=== PATIENT | male | born 1950 | race Caucasian/White ===

== ENCOUNTER 2018-04-07 13:30 | Outpatient (CLI) | payer MEDICARE, OTHER ==
[~2018-04-07] VITALS: Ht 185.4 cm; Wt 115.7 kg
[~2018-04-07 13:30] MED LIST: ACHD5005 PO; ASPI-808 PO; CITA40TA11 PO; FOSI40TA5 PO; HYDR25TA4 PO; MELO15TA39 PO; METH4TAB PO
[2018-04-07] MEDS ORDERED: VENL100T2 PO (13:33)
[2018-04-07] MEDS ORDERED: CHOL10003 PO (13:33)
[2018-04-07] MEDS ORDERED: ASPI-999 PO (13:33)
[2018-04-07] MEDS ORDERED: AMLO10TA7 PO (13:33)
== END 2018-04-07 13:34 ==
LOC: PREOP 13:30
PROVIDERS: ATTEND Surgery
DX: Z01.818 Encounter for other preprocedural examination (principal)

== ENCOUNTER 2018-04-09 11:13 | Day surgery (SDC) | payer MEDICARE, OTHER ==
[~2018-04-09] VITALS: Ht 185.4 cm; Wt 115.7 kg
[~2018-04-09 11:13] MED LIST changes: +AMLO10TA7 PO; +ASPI-999 PO; +CHOL10003 PO; +VENL100T2 PO
[2018-04-09] MEDS ORDERED: NS IV 500 ML 500 ML ONE (11:26)
[2018-04-09] MEDS ORDERED: MIDAZOLAM 2 MG/2 ML (VERSED) VIAL ONE ×4 (11:46)
[2018-04-09] MEDS ORDERED: fentaNYL INJECTION 100 MCG/2 ML AMP ONE (11:46)
[2018-04-09] MEDS ORDERED: LIDOCAINE JELLY 2% 6 ML SYRINGE ONE (11:47)
[2018-04-09] MEDS ORDERED: NS IV 500 ML 500 ML IV PRN (11:53)
--- NOTE | 2018-04-09 11:56 | Progress Note-Pre Operative ---
Pre-Operative Progress Note H&P Reviewed The H&P was reviewed, patient examined and no changes noted. Date Seen by Provider: Apr 09, 2018 Time Seen by Provider: 11:40 Date H&P Reviewed: Apr 09, 2018 Time H&P Reviewed: 11:40 Pre-Operative Diagnosis: screening colonoscopy CEFERINO SMITH MD Apr 09, 2018 11:56
--- NOTE | 2018-04-09 11:56 | Conscious Sedation/ASA ---
Conscious Sedation Pre-Proced Time 11:40 ASA Score 2 For ASA 3 and 4: Consider anesthesia and medical clearance. Also, for patients with a history of failed moderate sedation consider anesthesia. Airway Lungs Heart ASA score ASA 1: a normal healthy patient ASA 2: a patient with a mild systemic disease (mid diabetes, controlled hypertension, obesity ASA 3: a patient with a severe systemic disease that limits activity (angina , COPD, prior Myocardial infarction) ASA 4: a patient with an incapacitating disease that is a constant threat to life (CHF, renal failure) ASA 5: a moribund patient not expected to survive 24 hrs. (ruptured aneurysm) ASA 6: a declared brain- patient whose organs are being harvested. For emergent operations, add the letter E after the classification Mallampati Classification Grade 2 Sedation Plan Analgesia, Amnesia, Plan communicated to team members, Discussed options with patient/fam, Discussed risks with patient/fam The patient is an appropriate candidate to undergo the planned procedure, sedation, and anesthesia. The patient immediately re-assessed prior to indication. CEFERINO SMITH MD Apr 09, 2018 11:56
[2018-04-09] MEDS ORDERED: fentaNYL INJECTION 100 MCG/2 ML AMP IVP PRN (12:00)
[2018-04-09] MEDS ORDERED: HYDROcodone/APAP 5 MG/325 MG (LORTAB) TAB PO PRN (12:00)
[2018-04-09] MEDS ORDERED: MIDAZOLAM 2 MG/2 ML (VERSED) VIAL IVP ONE (12:00)
[2018-04-09] MEDS ORDERED: ACETAMINOPHEN 325 MG TABLET PO PRN (12:00)
[2018-04-09] MEDS ORDERED: LIDOCAINE JELLY 2% 6 ML SYRINGE MM PRN (12:00)
[2018-04-09] MEDS ORDERED: fentaNYL INJECTION 100 MCG/2 ML AMP IVP ONE (12:00)
[2018-04-09] MEDS ORDERED: ONDANSETRON 4 MG/2 ML (SDV) Z0FRAN IV PRN (12:00)
--- NOTE | 2018-04-09 12:00 | Discharge Inst-Surgical ---
D/C Lap Instructions-SARAH Follow Up Activity as tolerated High Fiber Diet 25g or more per day Avoid Alcohol, Caffeine, Spicy [place] and Acid foods. Drink 64 fluid oz or more of fluids per day. Symptoms to Report: Fever over 101 degree F, Nausea/Vomiting If any problems/questions: Contact your physician or go to Emergency Room CEFERINO SMITH MD Apr 09, 2018 12:00
--- NOTE | 2018-04-09 12:36 | Progress Note-Post Operative ---
Post-Operative Progess Note Surgeon (s)/Oxygen Tank Filler (s) Surgeon CEFERINO SMITH MD Oxygen Tank Filler: none Pre-Operative Diagnosis screening colonoscopy Post-Operative Diagnosis chronic stage 1 ext and int hemorrhoids, moderate sigmoid diverticulosis. Procedure & Operative Findings Date of Procedure 04/09/18 Procedure Performed/Findings Colonoscopy Anesthesia Type CS Estimated Blood Loss Estimated blood loss (mL): minimal Specimens/Packing Specimens Removed none CEFERINO SMITH MD Apr 09, 2018 12:36
[2018-04-09 12:50] VITALS: BP 121/56
--- OUTSIDE RECORDS SUMMARY | 2018-04-09 13:06 | XMS REPORT | CCD ---
Author Author HONEY RODRIGUEZ Unknown Address [address] [facility] [address] [place], [place] [id number] Care Team Providers Care Criminal Investigator Name Role Phone GABRIELLE VEALZCO, DEBI RIVAS Attphys F., ITZ NASST S., CINDI NEWTON NASST V., DOMINGA Finn NASST G., WENDY Ervin NASST H., ELIZABETH NASST Vital Signs Vital Sign Value Unit Date/Time Recent/Initial? Weight Measured 230 lbs 08/20/2015 10:45 Initial VS Height 73 in 08/20/2015 10:45 Initial VS BMI (Body Mass Index) 30.34 kg/m^2 08/20/2015 10:45 Initial VS BSA (Body Surface Area) 2.32 m^2 08/20/2015 10:45 Initial VS BP Systolic 142 mmHg 08/20/2015 10:45 Initial VS BP Diastolic 86 mmHg 08/20/2015 10:45 Initial VS Respiratory Rate 20 bpm 08/20/2015 10:45 Initial VS Heart Rate 66 bpm 08/20/2015 10:45 Initial VS O2 % BldC Oximetry 99 % 08/20/2015 10:45 Initial VS Body Temperature 95 degrees 08/27/2015 16:55 Initial VS BP Systolic 103 mmHg 08/28/2015 15:10 Most Recent VS BP Diastolic 63 mmHg 08/28/2015 15:10 Most Recent VS Respiratory Rate 18 bpm 08/28/2015 15:10 Most Recent VS Heart Rate 78 bpm 08/28/2015 15:10 Most Recent VS O2 % BldC Oximetry 92 % 08/28/2015 15:10 Most Recent VS Body Temperature 100.2 degrees 08/28/2015 15:10 Most Recent VS Allergies Allergy Code Allergy Type Reaction Status MORPHINE 7052 Drug allergy LIGHT Active Procedures Procedure Code Procedure Type Date Replacement of Right Hip Joint with Metal on Polyethylene Synthetic Substi [id number] ICD-10 PCS 08/27/2015 PT GROUP THERAPY 590613535 SNOMED CT 08/28/2015 PT EVALUATION 527977828 SNOMED CT 08/28/2015 PT GROUP THERAPY 559141125 SNOMED CT 08/28/2015 PT GAIT TRAINING/STAIRS EA [address] 08/27 OT ADL TRAINING/POSITIONING EA 15MIN 579490754 SNOMED CT 08/28/2015 OT ADL TRAINING/POSITIONING EA 15MIN 995200104 SNOMED CT 08/28/2015 OT EVALUATION 480444907 SNOMED CT 08/28/2015 HIP [address] 08/27/2015 CBC W/ AUTO DIFF (RFLX MAN DIFF IF IND) 9693662 SNOMED CT 08/28/2015 THERAPEP SUBSEQUENT 964210740 SNOMED CT 08/28/2015 THERAPEP SUBSEQUENT 456147423 SNOMED CT 08/28/2015 THERAPEP SUBSEQUENT 729374789 SNOMED CT 08/28/2015 THERAPEP SUBSEQUENT 638733053 SNOMED CT 08/27/2015 THERAPEP TREATMENT 269840152 SNOMED CT 08/27/2015 ^CBC W/AUTO DIFF 8388049 SNOMED CT 08/28/2015 History of Immunizations Immunization Code Date Influenza, seasonal, injectable 141 12/31/2014 Problems Problem Code Start Date Resolved Date Status Osteoarthritis 059146171 Active Post op pain 991695581 Active Status post hip replacement 032276483827 Active Pneumonia 788276079 05/15/2015 08/28/2015 Resolved Bronchitis 52540789 05/15/2015 08/28/2015 Resolved Results CBC W/ AUTO DIFF (RFLX MAN DIFF IF IND) - Collect Date/Time: 08/28/2015 06:00 Test Name Code Test Result Test Units Test Ref Range WBC 91143-2 11.1 TH/CMM L=4.5 H=10.8 RBC 789-8 4.75 ML/CMM L=4.70 H=6.10 HGB 718-7 12.6 G/DL L=14.0 H=18.0 HCT 4544-3 39.2 % L=42.0 H=52.0 MCV 83 FL L=81 H=99 MCH 26.5 PG L=27.0 H=33.0 MCHC 32.1 G/DL L=31.0 H=36.0 RDW SD 41 FL L=36 H=50 RDW CV 13.9 % L=0.0 H=14.8 MPV 10.7 FL L=9.3 H=12.5 PLT 777-3 270 TH/CMM L=130 H=440 NRBC# 0.00 TH/CMM L=0.00 H=0.00 NRBC% 0.0 /100WBC L=0.0 H=2.0 %NEUT 75.4 % %LYMP 13.3 % %MONO 9.2 % %EOS 1.4 % %BASO 0.2 % #NEUT 8.36 TH/CMM L=2.10 H=8.20 #LYMP 1.47 TH/CMM L=0.90 H=5.20 #MONO 1.02 TH/CMM L=0.16 H=1.00 #EOS 0.15 TH/CMM L=0.00 H=0.80 #BASO 0.02 TH/CMM L=0.00 H=0.20 MANUAL DIFF NOT IND N/A Active Medications Medications Administered During Visit Medication Dose Units Frequency Route Date/ Time of Last Dose LR 1000ML IV [PREDEFINED] CONT IV 08/28/2015 01:06 ONDANSETRON [ZOFRAN] INJ 4 MG/2 ML VIAL 4 MG PRN SIVP 08/28/2015 09:16 DIPHENHYDRAMINE (BENADRYL) CAP : 50 MG 50 MG PRN PO 08/27/2015 19:35 CEFAZOLIN [ANCEF] 2 GM IV PREMIX BAG Q6H 08/28/2015 08:05 VITAMIN ( SUB FOR ALL MULTIVITAMINS) 1 TAB DAILY PO 08/28/2015 08:05 ASCORBIC ACID [VITAMIN C] TAB : 500 MG 500 MG DAILY PO 08/28/2015 08:05 FERROUS SULFATE 325MG TABLET 325 MG BID PO 08/28/2015 08:05 DOCUSATE SODIUM 100 MG [COLACE] CAPSULE 100 MG BID PO 08/28/2015 08:05 TAMSULOSIN [FLOMAX] CAP: 0.4MG 0.4 MG DAILY PO 08/28/2015 08:05 HYDROmorphone [DILAUDID] INJ: 2MG/ML 1 MG PRN Q 1 HR IVP 08/27/2015 22:06 NORCO [HYDROCODONE/APAP] 10/325MG TAB 1 TAB PRN PO 08/28/2015 19:15 CELECOXIB [CELEBREX] CAPSULE : 200 MG 200 MG BID PO 08/28/2015 08:05 TRANEXAMIC ACID 1000MG/100ML [PREDEFINED X1 08/27/2015 18:21 CITALOPRAM [CELEXA] TABLET : 20 MG 40 MG DAILY PO 08/28/2015 08:05 LISINOPRIL 20MG TAB 40 MG DAILY PO 2015 08:05 HYDROCHLOROTHIAZIDE [HCTZ] TAB: 25 MG 25 MG DAILY PO 08/28/2015 08:05 Encounters Encounter Diagnosis Diagnosis Code Start Date Unilateral primary osteoarthritis, right hip M1611 08/27/2015 Social History Smoking Status Code Start Date End Date Never smoker 041222936 Patient Decision Aids Unknown or Not Available. Discharge Instructions You were admitted to [facility] on 08/27/2015 11:46 with a principal diagnosis of Unilateral primary osteoarthritis, right hip You had the following procedures done: Replacement of Right Hip Joint with Metal on Polyethylene Synthetic Substi You had the following tests done: CBC W/ AUTO DIFF (RFLX MAN DIFF IF IND) You were discharged from [facility] on 08/28/2015 19:05 Should you have any questions prior to discharge, please contact a member of your healthcare team. If you have left the hospital and have any questions, please contact your primary care physician. HOME DIET: Regular. ACTIVITY INSTRUCTIONS(list limitations): Activity as Tolerated , May Shower, Gradually resume normal activities. User walker when wallking. SPECIAL INSTRUCTIONS: MAINTAIN HIP PRECAUTIONS, MAY REMOVE CK HOSE AT NIGHT, REAPPLY IN THE MORNING WHEN UP,DO NOT TAKE ANY IBUPROPHEN, MOTRIN, ADVIL, ALEVE, MOBIC. ETC WITH XARELTO FOLLOW UP CARE - SEE YOUR PHYSICIAN: DR. VALDES August 9:10 AM PRIMARY CARE PHYSICIAN OR PRACTITIONER: Debi Valdes MD, . INSTRUCTIONS GIVEN AND DISCHARGE TO: Patient. VOICES UNDERSTANDING OF INSTRUCTIONS: Yes. INSTRUCTIONS GIVEN BY (TYPE IN NAME AND DATE) A VITT RN CONTACT PHYSICIAN IF YOU EXPERIENCE ANY: pain, Odor or drainage from incision, fever. Redness or soreness in calf area. CHIEF COMPLAINT: RIGHT HIP PAIN. Chief Complaint and Reason For Visit Chief Complaint Date of Onset ORT TOTAL HIP RT Function Status Unknown or Not Available. Plan of Care Unknown or Not Available. Referral/Transition of Care Unknown or Not Available.
--- OUTSIDE RECORDS SUMMARY | 2018-04-09 13:06 | XMS REPORT | CCD ---
Author HONEY Martin Unknown Address [address] [facility] [address] [place] [address] Care Team Providers Care Boom Worker Name Role Phone GABRIELLE VELAZCO, DEBI RIVAS Attphys C., LOLA NASST S., CINDI NEWTON NASST O., ITZEL Jean NASST B., MAYA NASST S., BRANDON NASST B., SONA NASST Allergies Allergy Code Allergy Type Reaction Status MORPHINE 7052 Drug allergy SEIZURE; SEIZURE Active Active Medications Medication Code Dose Units Frequency Route Modification Start Date/Time Aspirin 325MG Oral Tablet, Enteric Coated 682471 1 TABLET TWO TIMES A DAY BY MOUTH 11/18/2016 08:13 Prescription Detail 1 TABLET BY MOUTH TWO TIMES A DAY start 24hrs after the last Xarleto dose Citalopram 40MG Oral Tablet 307620 40 MILLIGRAMS DAILY ORAL 11/18/2016 08:13 Prescription Detail 40 MILLIGRAMS ORAL DAILY Fosinopril Sodium 40MG Oral Tablet 853703 40 MILLIGRAMS DAILY ORAL 11/18/2016 08:13 Prescription Detail 40 MILLIGRAMS ORAL DAILY hydroCHLOROthiazide 25MG Oral Tablet 369707 25 MILLIGRAMS DAILY ORAL 11/18/2016 08:13 Prescription Detail 25 MILLIGRAMS ORAL DAILY Vitamin D3 1000IU Oral Tablet 802111 2869 INTERNATIONAL UNITS DAILY ORAL 11/18/2016 08:13 Prescription Detail 1000 INTERNATIONAL UNITS ORAL DAILY ASPIRIN 0 81 MILLIGRAMS DAILY ORAL 11/18/2016 08:12 Prescription Detail 81 MILLIGRAMS ORAL DAILY hold until ASA EC 325 BID is completed HYDROcodone bitartrate-acetaminophen 10MG-325MG Oral Tablet 907327 1/2 - 1 TABLET NEEDED EVERY 4 HR BY MOUTH FOR PAIN 11/18/2016 08:11 Prescription Detail 1/2 - 1 TABLET BY MOUTH NEEDED EVERY 4 HR FOR PAIN Meloxicam 15MG Oral Tablet 676457 15 MILLIGRAMS DAILY ORAL 11/18/2016 08:11 Prescription Detail 15 MILLIGRAMS ORAL DAILY hold until 24hrs after the last Xarelto dose Docusate Sodium 100MG Oral Capsule, Liquid Filled 9897560 1 TABLET TWO TIMES A DAY BY MOUTH 11/18/2016 08: 10 Prescription Detail 1 TABLET BY MOUTH TWO TIMES A DAY as needed for constipation Thera-M Enhanced 90MG-0.03MG-0.15MG-4 Oral Tablet 449144 1 TABLET DAILY BY MOUTH 11/18/2016 08:10 Prescription Detail 1 TABLET BY MOUTH DAILY Xarelto 10MG Oral Tablet 8956016 1 TABLET DAILY BY MOUTH 11/18/2016 08:10 Prescription Detail 1 TABLET BY MOUTH DAILY for ten days Problems Problem Code Start Date Resolved Date Status Status post hip replacement 158942287059 Active Post op pain 075122946 Active HTN 03665602 Active Procedures Procedure Code Procedure Type Date Replacement of Left Hip Joint with Ceramic on Polyethylene Synthetic Subst [id number] ICD-10 PCS 11/17/2016 PT GROUP THERAPY 670614200 SNOMED CT 11/18/2016 PT THERAPEUTIC EXERCISES [address] 2016 PT GAIT TRAINING/STAIRS EA [address] 11/18 OT ADL TRAINING/POSITIONING EA 15MIN 573557789 SNOMED CT 11/18/2016 OT EVAL; LOW 451828712 SNOMED CT 11/18/2016 PT EVALUATION; LOW 942645154 SNOMED CT 11/17/2016 HIP [address] 11/17/2016 CBC W/ AUTO DIFF (RFLX MAN DIFF IF IND) 4501945 SNOMED CT 11/18/2016 THERAPEP TREATMENT SUBSEQUENT 169010550 SNOMED CT 2016 THERAPEP TREATMENT SUBSEQUENT 205635269 SNOMED CT 2016 THERAPEP TREATMENT SUBSEQUENT 283090772 SNOMED CT 2016 THERAPEP TREATMENT SUBSEQUENT 410457884 SNOMED CT 2016 THERAPEP TREATMENT INITIAL 037901792 SNOMED CT 11/17/2016 ^CBC W/AUTO DIFF 8113344 SNOMED CT 11/18/2016 Results CBC W/ AUTO DIFF (RFLX MAN DIFF IF IND) - Collect Date/Time: 11/18/2016 05:55 Test Name Code Test Result Test Units Test Ref Range WBC 21127-6 14.0 TH/CMM L=4.5 H=10.8 RBC 789-8 4.50 ML/CMM L=4.70 H=6.10 HGB 718-7 11.3 G/DL L=14.0 H=18.0 HCT 4544-3 36.1 % L=42.0 H=52.0 MCV 24623-5 80 FL L=81 H=99 MCH 16846-8 25.1 PG L=27.0 H=33.0 MCHC 94303-8 31.3 G/DL L=31.0 H=36.0 [place] 01103-5 43 FL L=36 H=50 [place] 62646-5 14.6 % L=0.0 H=14.8 MPV 77397-4 10.4 FL L=9.3 H=12.5 PLT 777-3 288 TH/CMM L=130 H=440 NRBC# 95070-8 0.00 TH/CMM L=0.00 H=0.00 NRBC% 28343-0 0.0 /100WBC L=0.0 H=2.0 %NEUT 27914-0 77.2 % %LYMP 97031-7 11.7 % %MONO 69842-1 10.5 % %EOS 11678-7 0.0 % %BASO 27431-1 0.0 % #NEUT 96019-3 10.84 TH/CMM L=2.10 H=8.20 #LYMP 48507-6 1.64 TH/CMM L=0.90 H=5.20 #MONO 10502-1 1.48 TH/CMM L=0.16 H=1.00 #EOS 94875-8 0.00 TH/CMM L=0.00 H=0.80 #BASO 34257-3 0.00 TH/CMM L=0.00 H=0.20 MANUAL DIFF 72867-1 NOT IND N/A Function Status Unknown or Not Available. History of Immunizations Immunization Code Date influenza, split (incl. purified surface antigen) 15 12/21/1997 influenza, split (incl. purified surface antigen) 15 12/27/1998 influenza, whole 16 02/27/2000 influenza, unspecified formulation 88 12/01/2015 Influenza, seasonal, injectable 141 12/31/2014 Plan of Treatment Unknown or Not Available. Social History Smoking Status Code Start Date End Date Never smoker 162054329 Vital Signs Vital Sign Value Unit Date/Time Recent/Initial? BP Systolic 179 mm[Hg] 11/10/2016 14:13 Initial VS BP Diastolic 107 mm[Hg] 11/10/2016 14:13 Initial VS Respiratory Rate 20 /min 11/10/2016 14:13 Initial VS Heart Rate 63 /min 11/10/2016 14:13 Initial VS O2 % BldC Oximetry 99 % 11/10/2016 14:13 Initial VS Body Temperature 98.2 [degF] 11/10/2016 14:13 Initial VS BMI (Body Mass Index) 31 kg/m2 11/14/2016 14:06 Initial VS Weight Measured 235 [lb_av] 11/14/2016 14:06 Initial VS Height 73 [in_i] 11/14/2016 14:06 Initial VS BSA (Body Surface Area) 2.34 m2 11/14/2016 14:06 Initial VS BP Systolic 110 mm[Hg] 11/18/2016 15:03 Most Recent VS BP Diastolic 60 mm[Hg] 11/18/2016 15:03 Most Recent VS Respiratory Rate 16 /min 11/18/2016 15:03 Most Recent VS Heart Rate 80 /min 11/18/2016 15:03 Most Recent VS O2 % BldC Oximetry 96 % 11/18/2016 15:03 Most Recent VS Body Temperature 98.7 [degF] 11/18/2016 15:03 Most Recent VS Function Status Unknown or Not Available. Goals Unknown or Not Available. ASSESSMENTS Unknown or Not Available. Health Concerns Section Unknown or Not Available.
--- OUTSIDE RECORDS SUMMARY | 2018-04-09 13:06 | XMS REPORT | CCD ---
Author Author LETTY NESS Unknown Address [address] [facility] [address] [place], [place] [id number] Care Team Providers Care Chef French Name Role Phone KALEB BARCENAS MD Attphys S., MOSES Finn NASST R., SOFIA Perez NASST B., ARCELIA NASST C., ITZEL Hidalgo NASST F., DANA NASST C., GRETA Jones NASST M., MARCI Jones NASST S., DRAKE Madden NASST G., PATRICIA NASST G., RODO NASST R., SUNSHINE Jones NASST Vital Signs Vital Sign Value Unit Date/Time Recent/Initial? Weight Measured 236.6 lbs 05/15/2015 14:42 Initial VS Height 73 in 05/15/2015 14:42 Initial VS BMI (Body Mass Index) 31.22 kg/m^2 05/15/2015 14:42 Initial VS BSA (Body Surface Area) 2.35 m^2 05/15/2015 14:42 Initial VS BP Systolic 175 mmHg 05/15/2015 14:42 Initial VS BP Diastolic 96 mmHg 05/15/2015 14:42 Initial VS Respiratory Rate 18 bpm 05/15/2015 14:42 Initial VS Heart Rate 77 bpm 05/15/2015 14:42 Initial VS O2 % BldC Oximetry 98 % 05/15/2015 14:42 Initial VS Body Temperature 100.4 degrees 05/15/2015 14:42 Initial VS BP Systolic 148 mmHg 05/18/2015 08:25 Most Recent VS BP Diastolic 92 mmHg 05/18/2015 08:25 Most Recent VS Respiratory Rate 20 bpm 05/18/2015 08:25 Most Recent VS Heart Rate 73 bpm 05/18/2015 08:25 Most Recent VS O2 % BldC Oximetry 95 % 05/18/2015 08:25 Most Recent VS Body Temperature 97.6 degrees 05/18/2015 08:25 Most Recent VS Allergies Allergy Code Allergy Type Reaction Status MORPHINE 7052 Drug allergy Active Procedures Procedure Code Procedure Type Date CX CHEST [address] 05/17/2015 CX CHEST [address] 05/15/2015 INFLUENZA A & B 941610687 SNOMED CT 05/15/2015 CULTURE SPUTUM 190996231 SNOMED CT 05/15/2015 CULTURE BLOOD 64020585 SNOMED CT 05/15/2015 COMPREHENSIVE METABOLIC PANEL 308165217 SNOMED CT 2015 CBC W/ AUTO DIFF (RFLX MAN DIFF IF IND) 4040722 SNOMED CT 05/15/2015 ^CBC W/AUTO DIFF 8192433 SNOMED CT 05/15/2015 BAN AERO ECLIPSE TREATMENT 59275516 SNOMED CT 05/18/2015 BAN AERO ECLIPSE TREATMENT 56969303 SNOMED CT 05/18/2015 BAN AERO ECLIPSE TREATMENT 90283637 SNOMED CT 05/18/2015 BAN AERO ECLIPSE TREATMENT 42947830 SNOMED CT 05/18/2015 BAN AERO ECLIPSE TREATMENT 34261533 SNOMED CT 05/17/2015 BAN AERO ECLIPSE TREATMENT 34185401 SNOMED CT 05/17/2015 BAN AERO ECLIPSE TREATMENT 24235169 SNOMED CT 05/17/2015 BAN AERO ECLIPSE TREATMENT 01326656 SNOMED CT 05/17/2015 BAN AERO ECLIPSE TREATMENT 39489110 SNOMED CT 05/17/2015 BAN AERO ECLIPSE TREATMENT 28475867 SNOMED CT 05/16/2015 BAN AERO ECLIPSE TREATMENT 57495943 SNOMED CT 05/16/2015 BAN AERO ECLIPSE TREATMENT 86978074 SNOMED CT 05/16/2015 BAN AERO ECLIPSE TREATMENT 01748172 SNOMED CT 05/16/2015 BAN AERO ECLIPSE TREATMENT 13856454 SNOMED CT 05/16/2015 BAN AERO ECLIPSE TREATMENT 86876692 SNOMED CT 05/16/2015 BAN AERO ECLIPSE TREATMENT 77953591 SNOMED CT 05/15/2015 BAN AERO ECLIPSE TREATMENT 02021033 SNOMED CT 05/15/2015 History of Immunizations Unknown or Not Available. Problems Problem Code Start Date Resolved Date Status Pneumonia 077320081 05/15/2015 Active Bronchitis 80176011 05/15/2015 Active BRONCHITIS 490 05/16/2015 Resolved Results COMPREHENSIVE METABOLIC PANEL - Collect Date/Time: 05/15/2015 15:21 Test Name Code Test Result Test Units Test Ref Range GLUCOSE 2345-7 97 MG/DL L=70 H=100 SODIUM 2951-2 142 MEQ/L L=135 H=148 POTASSIUM 2823-3 3.3 MEQ/L L=3.5 H=5.3 CHLORIDE 2075-0 107 MEQ/L L=96 H=110 CO2 2028-9 24 MEQ/L L=22 H=29 BUN 3094-0 14 MG/DL L=8 H=22 CREATININE 2160-0 0.9 MG/DL L=0.6 H=1.6 SGOT/AST 1920-8 16 IU/L L=10 H=40 SGPT/ALT 1742-6 11 IU/L L=8 H=54 ALK PHOS 6768-6 95 IU/L L=35 H=115 TOTAL PROTEIN 2885-2 7.4 G/DL L=5.5 H=8.5 ALBUMIN 1751-7 4.0 G/DL L=3.1 H=5.4 TOTAL BILI 1975-2 0.5 MG/DL L=0.0 H=1.5 CALCIUM 43900-0 9.1 MG/DL L=8.2 H=10.6 AGE 64 yrs GFR NonAA 85 GFR AA 103 eGFR >60 N/A eGFR AA* >60 N/A CBC W/ AUTO DIFF (RFLX MAN DIFF IF IND) - Collect Date/Time: 05/15/2015 15:21 Test Name Code Test Result Test Units Test Ref Range WBC 09721-7 8.9 TH/CMM L=4.5 H=10.8 RBC 789-8 4.88 ML/CMM L=4.70 H=6.10 HGB 718-7 13.3 G/DL L=14.0 H=18.0 HCT 4544-3 40.9 % L=42.0 H=52.0 MCV 84 FL L=81 H=99 MCH 27.3 PG L=27.0 H=33.0 MCHC 32.5 G/DL L=31.0 H=36.0 RDW SD 42 FL L=36 H=50 RDW CV 13.9 % L=0.0 H=14.8 MPV 10.3 FL L=9.3 H=12.5 PLT 777-3 305 TH/CMM L=130 H=440 NRBC# 0.00 TH/CMM L=0.00 H=0.00 NRBC% 0.0 /100WBC L=0.0 H=2.0 %NEUT 63.8 % %LYMP 20.8 % %MONO 12.2 % %EOS 2.9 % %BASO 0.3 % #NEUT 5.67 TH/CMM L=2.10 H=8.20 #LYMP 1.85 TH/CMM L=0.90 H=5.20 #MONO 1.09 TH/CMM L=0.16 H=1.00 #EOS 0.26 TH/CMM L=0.00 H=0.80 #BASO 0.03 TH/CMM L=0.00 H=0.20 MANUAL DIFF NOT IND N/A INFLUENZA A & B - Collect Date/Time: 05/15/2015 15:21 Test Name Code Test Result Test Units Test Ref Range INFLUENZA A & B 6437-8 NO INFLUENZA A OR B DETECTED N/A Active Medications Medication Code Dose Units Frequency Route Modification Start Date/Time Albuterol Sulfate 0.083% Inhalation Solution 573195 1 EACH Q4HR (RT) INHALATION 05/18/2015 12:48 Prescription Detail 1 EACH INHALATION Q4HR (RT) Zithromax 500MG Oral Tablet 922158 500 MILLIGRAMS DAILY ORAL 05/18/2015 12:48 Prescription Detail 500 MILLIGRAMS ORAL DAILY amLODIPine Besylate 10MG Oral Tablet 917090 10 MILLIGRAMS DAILY ORAL 12/07/2014 07:41 Prescription Detail 10 MILLIGRAMS ORAL DAILY Citalopram 40MG Oral Tablet 786318 40 MILLIGRAMS DAILY ORAL 12/07/2014 07:41 Prescription Detail 40 MILLIGRAMS ORAL DAILY Fosinopril Sodium 40MG Oral Tablet 898068 40 MILLIGRAMS DAILY ORAL 12/07/2014 07:41 Prescription Detail 40 MILLIGRAMS ORAL DAILY Hydrochlorothiazide 25MG Oral Tablet 198501 25 MILLIGRAMS DAILY ORAL 12/07/2014 07:41 Prescription Detail 25 MILLIGRAMS ORAL DAILY Latanoprost 0.005% Ophthalmic Solution 062370 1 DROP AT BEDTIME BOTH EYES 12/07/2014 07:41 Prescription Detail 1 DROP BOTH EYES AT BEDTIME Medications Administered During Visit Medication Dose Units Frequency Route Date/ Time of Last Dose AMLODIPINE [NORVASC] TABLET : 5 MG 10 MG DAILY PO 05/18/2015 09:38 CITALOPRAM [CELEXA] TABLET : 20 MG 40 MG DAILY PO 05/18/2015 09:38 LISINOPRIL 20MG TAB 40 MG DAILY PO 2015 09:38 HYDROCHLOROTHIAZIDE [HCTZ] TAB: 25 MG 25 MG DAILY PO 05/18/2015 09:38 AZITHROMYCIN [ZITHROMAX] TAB : 250 MG 500 MG DAILY PO 05/18/2015 09:38 ALBUTEROL NEB 2.5MG/3ML (ONLY ALBUTEROL) 1 MG Q4HR (RT) INHALE 05/18/2015 13:48 ACETAMINOPHEN [TYLENOL] TABS 325MG 650 MG PRN QID PO 05/15/2015 22:34 CEFTAZIDIME 2 GM IV [PREDEFINED] Q8H IV 05/18/2015 08:01 BENZONATATE [TESSALON PERLES] : 100 MG 100 MG PRN TID PO 05/18/2015 09:38 GUAIFENESIN ER (MUCINEX) TAB:600 MG 1200 MG BID PO 05/18/2015 09:38 Encounters Encounter Diagnosis Diagnosis Code Start Date Pneumonia, unspecified organism J189 05/16/2015 Social History Smoking Status Code Start Date End Date Never smoker [id number] Patient Decision Aids Unknown or Not Available. Discharge Instructions You were admitted to [facility] on 05/16/2015 14:50 with a principal diagnosis of Pneumonia, unspecified organism You had the following tests done: CBC W/ AUTO DIFF (RFLX MAN DIFF IF IND) COMPREHENSIVE METABOLIC PANEL INFLUENZA A & B You were discharged from [facility] on 05/18/2015 15:05 Should you have any questions prior to discharge, please contact a member of your healthcare team. If you have left the hospital and have any questions, please contact your primary care physician. HOME DIET: Regular. CONDITION AT DISMISSAL Stable. HOME MEDICATION INSTRUCTIONS: Take only the medications listed above.. HOME MEDS RETURNED TO PATIENT: N/A. ACTIVITY INSTRUCTIONS(list limitations): Activity as Tolerated. INSTRUCTIONS GIVEN BY (TYPE IN NAME AND DATE) HODA PAZ RN INSTRUCTIONS GIVEN AND DISCHARGE TO: Patient. VOICES UNDERSTANDING OF INSTRUCTIONS: Yes. PRIMARY CARE PHYSICIAN OR PRACTITIONER: Kaleb Barcenas MD, . Bring these instructions to next visit? No. PAIN MANAGEMENT: "Pain Management at Home" instruct given, Medication, Side effects. Treatment of constipation, Non drug control methods. Managing ineffective control. FOLLOW UP CARE - SEE YOUR PHYSICIAN: SEE DR. BARCENAS IN 1 WEEK. CALL FOR APPOINTMENT TIME. CHIEF COMPLAINT: cough ongoing for several days Chief Complaint and Reason For Visit Chief Complaint Date of Onset BRONCHITIS AND PNEUMONIA Function Status Unknown or Not Available. Plan of Care Unknown or Not Available. Referral/Transition of Care Unknown or Not Available.
--- OUTSIDE RECORDS SUMMARY | 2018-04-09 13:06 | XMS REPORT | CCD ---
Author Author LUKAS APONTE Organization Unknown Address [address] [facility] [address] [place], [place] [id number] Care Team Providers Care Twister Tender Name Role Phone GABRIELLE VELAZCO, DEBI RIVAS Attphys M., COURTNEY NASST S., CINDI NEWTON NASST C., IRINEO GREEN NASST S., DINA NASST S., GRETA NASST K., GRETA Madden NASST O., ITZEL Jean NASST Vital Signs Vital Sign Value Unit Date/Time Recent/Initial? Weight Measured 238 lbs 03/19/2015 10:30 Initial VS Height 73 in 03/19/2015 10:30 Initial VS BMI (Body Mass Index) 31.4 kg/m^2 03/19/2015 10:30 Initial VS BSA (Body Surface Area) 2.36 m^2 03/19/2015 10:30 Initial VS BP Systolic 162 mmHg 03/19/2015 10:30 Initial VS BP Diastolic 100 mmHg 03/19/2015 10:30 Initial VS Respiratory Rate 17 bpm 03/19/2015 10:30 Initial VS Heart Rate 65 bpm 03/19/2015 10:30 Initial VS O2 % BldC Oximetry 97 % 03/19/2015 10:30 Initial VS Body Temperature 98.7 degrees 03/19/2015 10:30 Initial VS BP Systolic 125 mmHg 04/12/2015 15:36 Most Recent VS BP Diastolic 79 mmHg 04/12/2015 15:36 Most Recent VS Respiratory Rate 16 bpm 04/12/2015 15:36 Most Recent VS Heart Rate 67 bpm 04/12/2015 15:36 Most Recent VS O2 % BldC Oximetry 95 % 04/12/2015 15:36 Most Recent VS Body Temperature 100.7 degrees 04/12/2015 15:36 Most Recent VS Allergies Allergy Code Allergy Type Reaction Status MORPHINE 7052 Drug allergy Active Procedures Procedure Code Procedure Type Date Replacement of Left Shoulder Joint with Synthetic Substitute, Open Approac [id number] ICD-10 PCS 04/11/2015 OT THERAPEUTIC EXERCISES [address] 2015 OT EVALUATION 104549187 SNOMED CT 04/12/2015 SHOULDER [address] 04/11/2015 ^CBC W/AUTO DIFF 9338848 SNOMED CT 04/12/2015 CBC W/ AUTO DIFF (RFLX MAN DIFF IF IND) 5328143 SNOMED CT 04/12/2015 THERAPEP SUBSEQUENT 048468831 SNOMED CT 04/12/2015 THERAPEP SUBSEQUENT 599961592 SNOMED CT 04/12/2015 THERAPEP SUBSEQUENT 902361898 SNOMED CT 04/12/2015 THERAPEP SUBSEQUENT 289034352 SNOMED CT 04/11/2015 THERAPEP TREATMENT 479033994 SNOMED CT 04/11/2015 History of Immunizations Unknown or Not Available. Problems Problem Code Start Date Resolved Date Status Primary osteoarthritis of left shoulder 585503068 04/11/2015 Active Post op pain 931281247 04/11/2015 Active Status post shoulder replacement 83533598 04/11/2015 Active Results CBC W/ AUTO DIFF (RFLX MAN DIFF IF IND) - Collect Date/Time: 04/12/2015 06:45 Test Name Code Test Result Test Units Test Ref Range WBC 41359-3 11.1 TH/CMM L=4.5 H=10.8 RBC 789-8 4.77 ML/CMM L=4.70 H=6.10 HGB 718-7 13.4 G/DL L=14.0 H=18.0 HCT 4544-3 40.7 % L=42.0 H=52.0 MCV 85 FL L=81 H=99 MCH 28.1 PG L=27.0 H=33.0 MCHC 32.9 G/DL L=31.0 H=36.0 RDW SD 42 FL L=36 H=50 RDW CV 13.5 % L=0.0 H=14.8 MPV 10.4 FL L=9.3 H=12.5 PLT 777-3 263 TH/CMM L=130 H=440 NRBC# 0.00 TH/CMM L=0.00 H=0.00 NRBC% 0.0 /100WBC L=0.0 H=2.0 %NEUT 72.8 % %LYMP 15.0 % %MONO 9.7 % %EOS 2.4 % %BASO 0.1 % #NEUT 8.10 TH/CMM L=2.10 H=8.20 #LYMP 1.67 TH/CMM L=0.90 H=5.20 #MONO 1.08 TH/CMM L=0.16 H=1.00 #EOS 0.27 TH/CMM L=0.00 H=0.80 #BASO 0.01 TH/CMM L=0.00 H=0.20 MANUAL DIFF NOT IND N/A Active Medications Medication Code Dose Units Frequency Route Modification Start Date/Time Aspirin 325MG Oral Tablet, Enteric Coated 814881 1 TABLET TWO TIMES A DAY BY MOUTH TAKE WITH FOOD 04/12/2015 08:15 Prescription Detail 1 TABLET BY MOUTH TWO TIMES A DAY TAKE WITH FOOD Docusate Sodium 100MG Oral Capsule 9950176 1 TABLET TWO TIMES A DAY BY MOUTH 04/12/2015 08:15 Prescription Detail 1 TABLET BY MOUTH TWO TIMES A DAY hold with loose stools HYDROcodone bitartrate-acetaminophen 10MG-325MG Oral Tablet 467051 1/2 - 1 TABLET NEEDED EVERY 4 HR BY MOUTH FOR PAIN 04/12/2015 08:15 Prescription Detail 1/2 - 1 TABLET BY MOUTH NEEDED EVERY 4 HR FOR PAIN Thera-M Enhanced 90MG-0.03MG-0.15MG-4 Oral Tablet 163127 1 TABLET DAILY BY MOUTH 04/12/2015 08:15 Prescription Detail 1 TABLET BY MOUTH DAILY amLODIPine Besylate 10MG Oral Tablet 642354 10 MILLIGRAMS DAILY ORAL 12/07/2014 07:41 Prescription Detail 10 MILLIGRAMS ORAL DAILY Citalopram 40MG Oral Tablet 450912 40 MILLIGRAMS DAILY ORAL 12/07/2014 07:41 Prescription Detail 40 MILLIGRAMS ORAL DAILY Fosinopril Sodium 40MG Oral Tablet 944006 40 MILLIGRAMS DAILY ORAL 12/07/2014 07:41 Prescription Detail 40 MILLIGRAMS ORAL DAILY Hydrochlorothiazide 25MG Oral Tablet 506350 25 MILLIGRAMS DAILY ORAL 12/07/2014 07:41 Prescription Detail 25 MILLIGRAMS ORAL DAILY Latanoprost 0.005% Ophthalmic Solution 855593 1 DROP AT BEDTIME BOTH EYES 12/07/2014 07:41 Prescription Detail 1 DROP BOTH EYES AT BEDTIME Meloxicam 15MG Oral Tablet 805226 15 MILLIGRAMS DAILY ORAL 12/07/2014 07:41 Prescription Detail 15 MILLIGRAMS ORAL DAILY Medications Administered During Visit Medication Dose Units Frequency Route Date/ Time of Last Dose LR 1000ML IV [PREDEFINED] CONT IV IV 01/2016 00:20 ONDANSETRON [ZOFRAN] INJ 4 MG/2 ML VIAL 4 MG PRN SIVP 04/12/2015 03:43 CEFAZOLIN [ANCEF] 2 GM IV PREMIX BAG Q6H IVPB 04/12/2015 02:58 VITAMIN ( SUB FOR ALL MULTIVITAMINS) 1 TAB DAILY PO 04/12/2015 08:37 ASCORBIC ACID [VITAMIN C] TAB : 500 MG 500 MG DAILY PO 04/12/2015 08:37 FERROUS SULFATE 325MG TABLET 325 MG BID PO 04/12/2015 08:37 DOCUSATE SODIUM 100 MG [COLACE] CAPSULE 100 MG BID PO 04/12/2015 08:37 TAMSULOSIN [FLOMAX] CAP: 0.4MG 0.4 MG DAILY PO 04/12/2015 08:37 ASPIRIN ENTERIC COATED TAB : 325MG 325 MG DAILY PO 04/12/2015 08:37 HYDROmorphone [DILAUDID] INJ: 2MG/ML 0.5 MG PRN Q 1 HR IVP 04/12/2015 03:43 NORCO [HYDROCODONE/APAP] 10/325MG TAB 1 TAB PRN PO 04/12/2015 16:35 CELECOXIB [CELEBREX] CAPSULE : 200 MG 200 MG BID PO 04/11/2015 20:03 TRANEXAMIC ACID 1000MG/100ML [PREDEFINED X1 IVPB 04/11/2015 12:15 CITALOPRAM [CELEXA] TABLET : 20 MG 40 MG DAILY PO 04/12/2015 08:37 LISINOPRIL 20MG TAB 40 MG DAILY PO 2015 08:37 LATANOPROST 0.005% [XALATAN] OPHTH FRIDG 1 EA HS EYE 04/11/2015 20:03 AMLODIPINE [NORVASC] TABLET : 5 MG 10 MG DAILY PO 04/12/2015 08:37 MELOXICAM [MOBIC] TABLET: 7.5 MG 15 MG DAILY PO 04/12/2015 08:37 Encounters Encounter Diagnosis Diagnosis Code Start Date Other specified arthritis, left shoulder Q21119 04/11/2015 Social History Smoking Status Code Start Date End Date Never smoker [id number] Patient Decision Aids Unknown or Not Available. Discharge Instructions You were admitted to [facility] on 04/11/2015 with a principal diagnosis of Other specified arthritis, left shoulder. You were discharged from [facility] on 04/12/2015. Should you have any questions prior to discharge, please contact a member of your healthcare team. If you have left the hospital and have any questions, please contact your primary care physician. CHIEF COMPLAINT: C/O PAIN N LT SHOULDER Chief Complaint and Reason For Visit Chief Complaint Date of Onset ORT TOTAL SHOULDER LEFT Function Status Unknown or Not Available. Plan of Care Unknown or Not Available. Referral/Transition of Care Unknown or Not Available.
--- OUTSIDE RECORDS SUMMARY | 2018-04-09 13:06 | XMS REPORT | CCD ---
Author Author HONEY RODRIGUEZ Unknown Address [address] [facility] [address] [place] [address] Care Team Providers Care Airline Flight Attendant Name Role Phone GABRIELLE VELAZCO, DEBI RIVAS Attphys J., LETTY NASST F., ITZ NASST S., CINDI NEWTON NASST S., GRETA NASST A., EDUARD PARKS NASST K., GRETA Madden NASST O., ITZEL Jean NASST W., KATIE NASST G., JUAN DAVID NASST Allergies Allergy Code Allergy Type Reaction Status MORPHINE 7052 Drug allergy LIGHT Active Active Medications Medication Code Dose Units Frequency Route Modification Start Date/Time Aspirin 325MG Oral Tablet, Enteric Coated 452954 1 TABLET TWO TIMES A DAY BY MOUTH 02/07/2016 17:59 Prescription Detail 1 TABLET BY MOUTH TWO TIMES A DAY start 24hrs after the last Xarleto dose Citalopram 40MG Oral Tablet 111348 40 MILLIGRAMS DAILY ORAL 02/07/2016 17:59 Prescription Detail 40 MILLIGRAMS ORAL DAILY Fosinopril Sodium 40MG Oral Tablet 193432 40 MILLIGRAMS DAILY ORAL 02/07/2016 17:59 Prescription Detail 40 MILLIGRAMS ORAL DAILY hydroCHLOROthiazide 25MG Oral Tablet 816767 25 MILLIGRAMS DAILY ORAL 02/07/2016 17:59 Prescription Detail 25 MILLIGRAMS ORAL DAILY Meloxicam 15MG Oral Tablet 294594 15 MILLIGRAMS DAILY ORAL 02/07/2016 17:58 Prescription Detail 15 MILLIGRAMS ORAL DAILY hold until 24hrs after the last Xarelto dose oxyCODONE HCl-acetaminophen 5MG-325MG Oral Tablet 2929476 1 - 2 TABLET NEEDED EVERY 4 HR BY MOUTH FOR PAIN 02/07/2016 17:58 Prescription Detail 1 - 2 TABLET BY MOUTH NEEDED EVERY 4 HR FOR PAIN Thera-M Enhanced 90MG-0.03MG-0.15MG-4 Oral Tablet 236345 1 TABLET DAILY BY MOUTH 02/07/2016 17:57 Prescription Detail 1 TABLET BY MOUTH DAILY Xarelto 10MG Oral Tablet 6531844 1 TABLET DAILY BY MOUTH 02/07/2016 17:57 Prescription Detail 1 TABLET BY MOUTH DAILY for ten days Docusate Sodium 100MG Oral Capsule, Liquid Filled 1591051 1 TABLET TWO TIMES A DAY BY MOUTH 02/07/2016 17: 56 Prescription Detail 1 TABLET BY MOUTH TWO TIMES A DAY hold with loose stools Problems Problem Code Start Date Resolved Date Status Osteoarthritis 967240515 Active Status post knee replacement 0646588887437 Active Post op pain 685604822 Active Procedures Procedure Code Procedure Type Date Replacement of Right Knee Joint with Synthetic Substitute, Cemented, Open [id number] ICD-10 PCS 02/06/2016 PT GROUP THERAPY 640396662 SNOMED CT 02/08/2016 PT GAIT TRAINING/STAIRS EA [address] 02/07 KNEE 1V OR [address] 02/06/2016 CBC W/ AUTO DIFF (RFLX MAN DIFF IF IND) 6902297 SNOMED CT 02/08/2016 CBC W/ AUTO DIFF (RFLX MAN DIFF IF IND) 2923810 SNOMED CT 02/07/2016 PT GROUP THERAPY 211155100 SNOMED CT 02/08/2016 PT GROUP THERAPY 459649643 SNOMED CT 02/07/2016 PT GROUP THERAPY 542220401 SNOMED CT 02/07/2016 PT EVALUATION 373781285 SNOMED CT 02/06/2016 THERAPEP SUBSEQUENT 982225709 SNOMED CT 02/08/2016 THERAPEP SUBSEQUENT 874461639 SNOMED CT 02/08/2016 THERAPEP SUBSEQUENT 979138642 SNOMED CT 02/08/2016 THERAPEP SUBSEQUENT 759643881 SNOMED CT 02/07/2016 THERAPEP SUBSEQUENT 602245503 SNOMED CT 02/07/2016 THERAPEP SUBSEQUENT 507115771 SNOMED CT 02/07/2016 THERAPEP SUBSEQUENT 890393070 SNOMED CT 02/07/2016 THERAPEP SUBSEQUENT 584367057 SNOMED CT 02/06/2016 THERAPEP TREATMENT 306298708 [facility] CT 02/06/2016 ^CBC W/AUTO DIFF 2150807 SNOMED CT 02/08/2016 ^CBC W/AUTO DIFF 7957899 [facility] CT 02/07/2016 Results CBC W/ AUTO DIFF (RFLX MAN DIFF IF IND) - Collect Date/Time: 02/08/2016 06:30 Test Name Code Test Result Test Units Test Ref Range WBC 44319-9 11.5 TH/CMM L=4.5 H=10.8 RBC 789-8 4.14 ML/CMM L=4.70 H=6.10 HGB 718-7 10.5 G/DL L=14.0 H=18.0 HCT 4544-3 33.9 % L=42.0 H=52.0 MCV 54297-6 82 FL L=81 H=99 MCH 37613-7 25.4 PG L=27.0 H=33.0 MCHC 08691-6 31.0 G/DL L=31.0 H=36[place]0 [place] [address]-7 42 FL L=36 H=50 [place] 81641-2 14.2 % L=0.0 H=14.8 MPV 61720-6 10.2 FL L=9.3 H=12.5 PLT 777-3 285 TH/CMM L=130 H=440 NRBC# 37098-1 0.00 TH/CMM L=0.00 H=0.00 NRBC% 52887-7 0.0 /100WBC L=0.0 H=2.0 %NEUT 46516-1 73.6 % %LYMP 79779-4 10.7 % %MONO 30983-8 13.2 % %EOS 95991-0 1.7 % %BASO 66809-1 0.3 % #NEUT 09852-9 8.50 TH/CMM L=2.10 H=8.20 #LYMP 31007-2 1.23 TH/CMM L=0.90 H=5.20 #MONO 88014-0 1.52 TH/CMM L=0.16 H=1.00 #EOS 60772-4 0.20 TH/CMM L=0.00 H=0.80 #BASO 00097-2 0.03 TH/CMM L=0.00 H=0.20 MANUAL DIFF 60185-8 NOT IND N/A CBC W/ AUTO DIFF (RFLX MAN DIFF IF IND) - Collect Date/Time: 02/07/2016 05:35 Test Name Code Test Result Test Units Test Ref Range WBC 53813-7 15.2 TH/CMM L=4.5 H=10.8 RBC 789-8 4.44 ML/CMM L=4.70 H=6.10 HGB 718-7 11.4 G/DL L=14.0 H=18.0 HCT 4544-3 36.5 % L=42.0 H=52.0 MCV 41287-0 82 FL L=81 H=99 MCH 10845-0 25.7 PG L=27.0 H=33.0 MCHC 00993-2 31.2 G/DL L=31.0 H=36[place]0 [place] [address]-1 42 FL L=36 H=50 RDW CV 09946-7 14.1 % L=0.0 H=14.8 MPV 87444-8 10.5 FL L=9.3 H=12.5 PLT 777-3 321 TH/CMM L=130 H=440 NRBC# 34897-5 0.00 TH/CMM L=0.00 H=0.00 NRBC% 19194-9 0.0 /100WBC L=0.0 H=2.0 %NEUT 43760-8 78.3 % %LYMP 02370-5 12.3 % %MONO 37057-7 8.4 % %EOS 21518-1 0.2 % %BASO 87560-3 0.1 % #NEUT 33796-8 11.88 TH/CMM L=2.10 H=8.20 #LYMP 39800-0 1.86 TH/CMM L=0.90 H=5.20 #MONO 12750-3 1.27 TH/CMM L=0.16 H=1.00 #EOS 05183-5 0.03 TH/CMM L=0.00 H=0.80 #BASO 70905-7 0.01 TH/CMM L=0.00 H=0.20 MANUAL DIFF 94098-9 NOT IND N/A Function Status Unknown or Not Available. History of Immunizations Immunization Code Date influenza, unspecified formulation 88 12/01/2015 Influenza, seasonal, injectable 141 12/31/2014 Plan of Treatment Unknown or Not Available. Social History Smoking Status Code Start Date End Date Never smoker 066322260 Vital Signs Vital Sign Value Unit Date/Time Recent/Initial? Weight Measured 235 [lb_av] 01/28/2016 13:33 Initial VS Height 73 [in_i] 01/28/2016 13:33 Initial VS BMI (Body Mass Index) 31 kg/m2 01/28/2016 13:33 Initial VS BSA (Body Surface Area) 2.34 m2 01/28/2016 13:33 Initial VS Respiratory Rate 17 /min 02/06/2016 11:11 Initial VS Heart Rate 80 /min 02/06/2016 11:11 Initial VS O2 % BldC Oximetry 97 % 02/06/2016 11:11 Initial VS BP Systolic 97 mm[Hg] 02/06/2016 11:17 Initial VS BP Diastolic 47 mm[Hg] 02/06/2016 11:17 Initial VS Body Temperature 96.4 [degF] 02/06/2016 11:55 Initial VS BP Systolic 125 mm[Hg] 02/08/2016 11:17 Most Recent VS BP Diastolic 55 mm[Hg] 02/08/2016 11:17 Most Recent VS Respiratory Rate 18 /min 02/08/2016 11:17 Most Recent VS Heart Rate 72 /min 02/08/2016 11:17 Most Recent VS O2 % BldC Oximetry 95 % 02/08/2016 11:17 Most Recent VS Body Temperature 99.1 [degF] 02/08/2016 11:17 Most Recent VS Function Status Unknown or Not Available. Goals Unknown or Not Available. ASSESSMENTS Unknown or Not Available. Health Concerns Section Unknown or Not Available.
--- OUTSIDE RECORDS SUMMARY | 2018-04-09 13:06 | XMS REPORT | CCD ---
Author Author HONEY RODRIGUEZ Unknown Address [address] [facility] [address] [place], [place] [address] Care Team Providers Care Nuts And Bolts Assembler Name Role Phone GABRIELLE VELAZCO, DEBI RIVAS Attphys F., ITZ NASST S., [...] Joint with Metal on Polyethylene Synthetic Substi 6CS896I ICD-10 PCS 08/27/2015 PT GROUP THERAPY 775664210 SNOMED CT 08/28/2015 PT EVALUATION 342962774 SNOMED CT 08/28/2015 PT GROUP THERAPY 158843810 SNOMED CT 08/28/2015 PT GAIT TRAINING/STAIRS EA [address] 08/27 OT ADL TRAINING/POSITIONING EA 15MIN 652821571 SNOMED CT 08/28/2015 OT ADL TRAINING/POSITIONING EA 15MIN 552159668 SNOMED CT 08/28/2015 OT EVALUATION 045514138 SNOMED CT 08/28/2015 HIP [address] 08/27/2015 CBC W/ AUTO DIFF (RFLX MAN DIFF IF IND) 7489761 SNOMED CT 08/28/2015 THERAPEP SUBSEQUENT 644782716 SNOMED CT 08/28/2015 THERAPEP SUBSEQUENT 322119872 SNOMED CT 08/28/2015 THERAPEP SUBSEQUENT 410089763 SNOMED CT 08/28/2015 THERAPEP SUBSEQUENT 616261205 SNOMED CT 08/27/2015 THERAPEP TREATMENT 265735571 SNOMED CT 08/27/2015 ^CBC W/AUTO DIFF 4385092 SNOMED CT 08/28/2015 History of Immunizations Immunization Code Date Influenza, seasonal, injectable 141 12/31/2014 Problems Problem Code Start Date Resolved Date Status Osteoarthritis 989803724 Active Post op pain 452558315 Active Status post hip replacement 944281816089 Active Pneumonia 981004748 05/15/2015 08/28/2015 Resolved Bronchitis 85330407 05/15/2015 08/28/2015 Resolved Results CBC W/ AUTO DIFF (RFLX MAN DIFF IF IND) - Collect Date/Time: 08/28/2015 06:00 Test Name Code Test Result Test Units Test Ref Range WBC 53550-4 11.1 TH/CMM L=4.5 H=10.8 RBC 789-8 4.75 [...] Code Start Date End Date Never smoker 005217027 Patient Decision Aids Unknown or Not Available. Discharge Instructions You were admitted to [facility] on 08/27/2015 11:46 with a principal diagnosis of Unilateral primary osteoarthritis, right hip You had the following procedures done: Replacement of Right Hip Joint with Metal on Polyethylene Synthetic Substi You had the following tests done: CBC W/ AUTO DIFF (RFLX MAN DIFF IF IND) You were discharged from [facility] on 08/28/2015 19:05 Should you have any [...]
--- OUTSIDE RECORDS SUMMARY | 2018-04-09 13:07 | XMS REPORT | CCD ---
Author Author LETTY NESS Unknown Address [address] [facility] [address] [place], [place] [address] Care Team Providers Care Drying Can Worker Name Role Phone KALEB BARCENAS MD Attphys [...] Procedure Type Date CX CHEST [address] 05/17/2015 CX CHEST [address] 05/15/2015 INFLUENZA A & B 634608250 SNOMED CT 05/15/2015 CULTURE SPUTUM 129697617 SNOMED CT 05/15/2015 CULTURE BLOOD 26762812 SNOMED CT 05/15/2015 COMPREHENSIVE METABOLIC PANEL 970346645 SNOMED CT 2015 CBC W/ AUTO DIFF (RFLX MAN DIFF IF IND) 4064155 SNOMED CT 05/15/2015 ^CBC W/AUTO DIFF 6626775 SNOMED CT 05/15/2015 BAN AERO ECLIPSE TREATMENT 95371937 SNOMED CT 05/18/2015 BAN AERO ECLIPSE TREATMENT 53440925 SNOMED CT 05/18/2015 BAN AERO ECLIPSE TREATMENT 04882029 SNOMED CT 05/18/2015 BAN AERO ECLIPSE TREATMENT 22794691 SNOMED CT 05/18/2015 BAN AERO ECLIPSE TREATMENT 60574352 SNOMED CT 05/17/2015 BAN AERO ECLIPSE TREATMENT 50677093 SNOMED CT 05/17/2015 BAN AERO ECLIPSE TREATMENT 38144117 SNOMED CT 05/17/2015 BAN AERO ECLIPSE TREATMENT 45495426 SNOMED CT 05/17/2015 BAN AERO ECLIPSE TREATMENT 40297928 SNOMED CT 05/17/2015 BAN AERO ECLIPSE TREATMENT 15115484 SNOMED CT 05/16/2015 BAN AERO ECLIPSE TREATMENT 28336559 SNOMED CT 05/16/2015 BAN AERO ECLIPSE TREATMENT 48272142 SNOMED CT 05/16/2015 BAN AERO ECLIPSE TREATMENT 79008526 SNOMED CT 05/16/2015 BAN AERO ECLIPSE TREATMENT 04428507 SNOMED CT 05/16/2015 BAN AERO ECLIPSE TREATMENT 33564653 SNOMED CT 05/16/2015 BAN AERO ECLIPSE TREATMENT 51999886 SNOMED CT 05/15/2015 BAN AERO ECLIPSE TREATMENT 16480880 SNOMED CT 05/15/2015 History of Immunizations Unknown or Not Available. Problems Problem Code Start Date Resolved Date Status Pneumonia 470167176 05/15/2015 Active Bronchitis 72115460 05/15/2015 Active BRONCHITIS 490 05/16/2015 Resolved Results [...] BILI 1975-2 0.5 MG/DL L=0.0 H=1.5 CALCIUM 86300-4 9.1 MG/DL L=8.2 H=10.6 AGE 64 yrs GFR NonAA 85 GFR AA 103 eGFR >60 N/A eGFR AA* >60 N/A CBC W/ AUTO DIFF (RFLX MAN DIFF IF IND) - Collect Date/Time: 05/15/2015 15:21 Test Name Code Test Result Test Units Test Ref Range WBC 17347-3 8.9 TH/CMM L=4.5 H=10.8 RBC 789-8 4.88 [...] Start Date/Time Albuterol Sulfate 0.083% Inhalation Solution 541506 1 EACH Q4HR (RT) INHALATION 05/18/2015 12:48 Prescription Detail 1 EACH INHALATION Q4HR (RT) Zithromax 500MG Oral Tablet 105978 500 MILLIGRAMS DAILY ORAL 05/18/2015 12:48 Prescription Detail 500 MILLIGRAMS ORAL DAILY amLODIPine Besylate 10MG Oral Tablet 820532 10 MILLIGRAMS DAILY ORAL 12/07/2014 07:41 Prescription Detail 10 MILLIGRAMS ORAL DAILY Citalopram 40MG Oral Tablet 803106 40 MILLIGRAMS DAILY ORAL 12/07/2014 07:41 Prescription Detail 40 MILLIGRAMS ORAL DAILY Fosinopril Sodium 40MG Oral Tablet 005678 40 MILLIGRAMS DAILY ORAL 12/07/2014 07:41 Prescription Detail 40 MILLIGRAMS ORAL DAILY Hydrochlorothiazide 25MG Oral Tablet 603991 25 MILLIGRAMS DAILY ORAL 12/07/2014 07:41 Prescription Detail 25 MILLIGRAMS ORAL DAILY Latanoprost 0.005% Ophthalmic Solution 580762 1 DROP AT BEDTIME BOTH EYES 12/07/2014 [...] Code Start Date End Date Never smoker 394167010 Patient Decision Aids Unknown or Not Available. Discharge Instructions You were admitted to [facility] on 05/16/2015 14:50 with a principal diagnosis of Pneumonia, unspecified organism You had the following tests done: CBC W/ AUTO DIFF (RFLX MAN DIFF IF IND) COMPREHENSIVE METABOLIC PANEL INFLUENZA A & B You were discharged from [facility] on 05/18/2015 15:05 Should you have any [...] CARE PHYSICIAN OR PRACTITIONER: Kaleb Barcenas MD, [phone]. Bring these instructions to next visit? No. [...]
--- OUTSIDE RECORDS SUMMARY | 2018-04-09 13:07 | XMS REPORT | Continuity of Care Document ---
Author Author [facility] Address Unknown Phone Unavailable Allergies Active Description Code Type Severity Reaction Onset Reported/Identified Relationship to Patient Clinical Status Yes MORPHINE 98829477 DRUG N/A LIGHT Yes MORPHINE 79533802 DRUG N/A SEIZURE; SEIZURE Yes morphine [id number] Drug Allergy Mild N/A 11/16/2010 Medications There is no data. Problems Date Dx Coded Attending Type Code Diagnosis Diagnosed By 11/16/2010 Ot 708.9 URTICARIA NOS 11/16/2010 Ot 782.1 NONSPECIF SKIN ERUPT NEC 04/25/2015 DAHLIA VELAZCO, MATTHEW Hidalgo Ot R11.0 NAUSEA 04/25/2015 DAHLIA VELAZCO, MATTHEW Hidalgo Ot R42 DIZZINESS AND GIDDINESS 04/25/2015 DAHLIA VELAZCO, MATTHEW T Ot R51 HEADACHE 04/25/2015 DAHLIA VELAZCO, MATTHEW Hidalgo Ot R53.81 OTHER MALAISE 04/07/2018 SARAH VELAZCO, CEFERINO Ot Z01.818 ENCOUNTER FOR OTHER PREPROCEDURAL EXAMIN 04/07/2018 CEFERINO SMITH MD Ot Z01.818 ENCOUNTER FOR OTHER PREPROCEDURAL EXAMIN Procedures There is no data. Results There is no data. Encounters ACCT No. Visit Date/Time Discharge Status Pt. Type Provider Facility Loc./Unit Complaint [id number] 01/13/2017 16:57:59 01/13/2017 23:59:59 [facility] Outpatient Deja Ibrahim [id number] 03/20/2016 10:44:35 03/20/2016 23:59:59 [facility] Outpatient Deja Ibrahim [id number] 09/03/2015 07:51:37 09/03/2015 23:59:59 [facility] Outpatient Deja Ibrahim [id number] 11/06/2016 13:21:44 Document Registration [id number] 10/28/2016 00:59:25 Document Registration [id number] 04/07/2018 13:30:00 04/07/2018 13:34:00 DIS Outpatient CEFERINO SMITH MD [facility] PREOP COLONOSCOPY [id number] 04/24/2015 22:49:00 04/25/2015 00:51:00 DIS Emergency DAHLIA VELAZCO, MATTHEW Hidalgo [facility] ER L SIDE HEAD PAIN/ DIZZINESS/L ARM PAIN [id number] 04/09/2018 11:13:00 ACT Outpatient CEFERINO MSITH MD [facility] ENDO SCREENING [id number] 11/16/2010 00:40:00 Document Registration
[2018-04-09 13:10] VITALS: BP 136/85
[2018-04-09 13:43] VITALS: BP 136/85
--- NOTE | 2018-04-09 22:52 | OPERATIVE REPORT ---
DATE OF SERVICE: 04/09/2018 ATTENDING PRIMARY CARE PHYSICIAN: Dr. Pereira as well as at the [facility] in [place], [place]. PREOPERATIVE DIAGNOSIS: Screening colonoscopy. POSTOPERATIVE DIAGNOSIS: Mild chronic stage I external and internal hemorrhoids, moderate sigmoid diverticulosis. The remainder of the colon was normal. PROCEDURE: Colonoscopy. SURGEON: Ceferino Smith M.D. ANESTHESIA: Conscious sedation. ESTIMATED BLOOD LOSS: Minimal. FINDINGS: Mild chronic stage I external and internal hemorrhoids, not actively edematous, nor inflamed and no bleeding. Prostate gland was palpable and appeared normal. There was moderate sigmoid diverticulosis with no mucosal inflammatory change to indicate any active diverticulitis. The remainder of the colon was normal. No polyps or any neoplasms identified. DISPOSITION: The patient tolerated the procedure well. INDICATIONS: The patient is a 67-year-old male, in need of a followup colonoscopy. His last colonoscopy was approximately 10 years ago and he states that to be normal; however, he reports that he did have another colonoscopy before that and polyps were identified, which were biopsied and found to be benign. He states for the most part he is doing well, does not report any major issues with diarrhea nor constipation as well as no red blood per rectum nor any dark tarry stools. He also does not have any family history of colon cancer. DESCRIPTION OF PROCEDURE: The patient was brought to the endoscopy suite, laid in the left lateral decubitus position. After adequate IV pain and sedating medications and conscious sedation anesthesia, a digital rectal examination was performed. Mild chronic stage I external and internal hemorrhoids identified not actively edematous nor inflamed and no bleeding. Normal sphincter tone was felt and there were no palpable masses. Prostate gland was palpable and appeared normal. The endoscope was then intubated to the anus and rectum gently insufflated. The endoscope was then advanced to the valves of Mcneal of the rectum with no polyps or any neoplasms identified. We then proceeded with the sigmoid colon where a moderate sigmoid diverticulosis identified. This also did extend into the descending colon. There were no mucosal inflammatory changes to indicate any active diverticulitis. The endoscope was then advanced to the remainder of the transverse, ascending colon to the cecum. These segments were normal. There were no polyps or neoplasms identified throughout the colon or rectum. Endoscope was then slowly withdrawn while taking a second look and suctioning of residual air with no additional findings. The patient tolerated the procedure well. We will recommend a high fiber diet with at least 30 grams of fiber per day as well as significant amounts of water on a daily basis to promote soft stools on a daily basis. He does not need another colonoscopy for another 10 years; however, sooner if he does develop symptoms. Job ID: [id number] DocumentID: [id number] Dictated Date: 04/09/2018 12:32:14 Child Care Counselor Date: 04/09/2018 22:51:41 Dictated By: CEFERINO SMITH MD
== END 2018-04-09 13:20 | disposition home or self-care (01) ==
LOC: ENDO 11:13
PROVIDERS: ATTEND Surgery
DX: Z12.11 Encounter for screening for malignant neoplasm of colon (principal); K57.30 Diverticulosis of large intestine without perforation or abscess without bleeding; K64.0 First degree hemorrhoids; Z86.010 Personal history of colon polyps; E55.9 Vitamin D deficiency, unspecified; F32.9 Major depressive disorder, single episode, unspecified; F41.9 Anxiety disorder, unspecified; M19.91 Primary osteoarthritis, unspecified site; Z79.82 Long term (current) use of aspirin; Z79.899 Other long term (current) drug therapy

== ENCOUNTER 2021-06-26 20:55 | Emergency (ER) | payer MEDICARE, OTHER ==
[~2021-06-26] VITALS: Ht 172.2 cm; Wt 104.3 kg
[~2021-06-26 20:55] MED LIST changes: +AMLO-251 PO; -AMLO10TA7 PO; -CITA40TA11 PO; +CITA40TA13 PO; -FOSI40TA5 PO; +FOSI40TA65 PO
[2021-06-26] MEDS ORDERED: guaiFENesin SYRUP 100 MG/5 ML 10 ML (ROBITUSSIN SF) PO ONE (21:45)
[2021-06-26 22:06] LABS: BASOPHILS % (AUTO) 1 % (0-10); EOSINOPHILS # (AUTO) 0.5 10^3/uL (0.0-0.3); EOSINOPHILS % (AUTO) 6 % (0-10); HEMATOCRIT 46 % (40-54); HEMOGLOBIN 15.7 g/dL (13.3-17.7); LYMPHOCYTES # (AUTO) 1.3 10^3/uL (1.0-4.0); LYMPHOCYTES % (AUTO) 15 % (12-44); MEAN CORPUSCULAR HEMOGLOBIN 29 pg (25-34); MEAN CORPUSCULAR HGB CONC 34 g/dL (32-36); MEAN CORPUSCULAR VOLUME 86 fL (80-99); MEAN PLATELET VOLUME 10.8 fL (9.0-12.2); MONOCYTES # (AUTO) 1.1 10^3/uL (0.0-1.0); MONOCYTES % (AUTO) 14 % (0-12); NEUTROPHILS # (AUTO) 5.5 10^3/uL (1.8-7.8); NEUTROPHILS % (AUTO) 65 % (42-75); PLATELET COUNT 279 10^3/uL (130-400); WHITE BLOOD COUNT 8.4 10^3/uL (4.3-11.0)
--- NOTE | 2021-06-26 22:06 | Diagnostic Imaging Report ---
EXAMINATION: Chest radiograph, portable AP view. DATE: 06/26/2021 9:59 PM INDICATION: 70-year-old male, cough. COMPARISON: None. FINDINGS: There are bilateral shoulder prostheses. The heart is not grossly enlarged. There is a lucency with adjacent opacification to the left of midline at the level of the lower mediastinum. There is no identified pneumothorax. There is no large pleural effusion. IMPRESSION: A large lucency with surrounding opacification projecting to the left of midline at the level of the lower mediastinum although this potentially may reflect a large hiatal hernia, especially given off midline location and lack of comparison imaging, but cavitary mass or other lesion cannot be excluded. Further evaluation with CT chest with intravenous contrast is recommended. Dictated by: Dictated on workstation # [id number]
[2021-06-26 22:16] LABS: ALBUMIN 4.3 GM/DL (3.2-4.5); POTASSIUM 3.7 MMOL/L (3.6-5.0)
[2021-06-26 22:17] LABS: CALCIUM 9.4 MG/DL (8.5-10.1)
[2021-06-26 22:19] LABS: TOTAL PROTEIN 7.4 GM/DL (6.4-8.2)
[2021-06-26 22:20] LABS: BILIRUBIN,TOTAL 0.6 MG/DL (0.1-1.0)
[2021-06-26 22:22] LABS: CREATININE SERUM 1.09 MG/DL (0.60-1.30)
--- NOTE | 2021-06-26 22:48 | ED Cough/URI ---
General Chief Complaint: Cough/Cold/Flu Symptoms Stated Complaint: COUGH Nursing Triage Note: c/o of cough and headache x 1 day. Reports that his PCP has gven him a script for "cough pills" Source: patient Exam Limitations: no limitations History of Present Illness Date Seen by Provider: Jun 26, 2021 Time Seen by Provider: 22:22 Allergies and Home Medications Allergies Coded Allergies: morphine (Unverified Allergy, Mild, 11/16/10) Patient Home Medication List Home Medication List Reviewed: Yes Amlodipine Besylate (Amlodipine Besylate) 10 Mg Tablet, 10 MG PO DAILY, (Reported) Entered as Reported by: OFE SIGALA on 04/07/18 133 Aspirin (Aspirin) 81 Mg Tab.chew, 81 MG PO DAILY, (Reported) Entered as Reported by: OFE SIGALA on 04/07/18 133 Cholecalciferol (Vitamin D3) (Vitamin D3) 1,000 Unit Tablet, 1,000 UNIT PO DAILY, (Reported) Entered as Reported by: OFE SIGALA on 04/07/18 133 Citalopram Hydrobromide (Citalopram HBr) 40 Mg Tablet, 40 MG PO DAILY, (Reported) Entered as Reported by: MARISABEL ABBOTT on 04/24/152307 Fosinopril Sodium (Fosinopril Sodium) 40 Mg Tablet, 40 MG PO DAILY, (Reported) Entered as Reported by: MARISABEL ABBOTT on 04/24/152307 Meloxicam (Meloxicam) 15 Mg Tablet, 15 MG PO DAILY, (Reported) Entered as Reported by: MARISABEL ABBOTT on 04/24/152307 Venlafaxine HCl (Venlafaxine HCl) 100 Mg Tablet, 100 MG PO DAILY, (Reported) Entered as Reported by: OFE SIGALA on 04/07/18 133 Past Thdagfp-Bxrfax-Jbispd Hx Immunizations Up To Date Tetanus Booster (TDap): Unknown PED Vaccines UTD: No Past Medical History Surgeries: Yes (R/L SHOULDER replaced, R TKR, GANGLION CYST, L KNEE, hand, bilat hip replac) Orthopedic Respiratory: Yes Sleep Apnea Currently Using CPAP: Yes Currently Using BIPAP: No Cardiac: Yes Hypertension Neurological: No Reproductive Disorders: No Genitourinary: No Gastrointestinal: No Polyps Musculoskeletal: Yes Arthritis Endocrine: No HEENT: No Cancer: No Psychosocial: Yes Depression Integumentary: No Blood Disorders: No Family Medical History Stroke Physical Exam Vital Signs - First Documented 06/26/21 21:12 Temp 37.0 Pulse 86 Resp 20 B/P (MAP) 111/55 (73) Pulse Ox 95 O2 Delivery Room Air Capillary Refill : Less Than 3 Seconds Height: 6'1.00" Weight: 255lbs. 0.0oz. 115.804720yv; 35.00 BMI Method:Stated Progress/Results/Core Measures Suspected Sepsis SIRS Temperature: Pulse: 86 Respiratory Rate: 20 Laboratory Tests 06/26/21 21:58: White Blood Count 8.4 Blood Pressure 111 /55 Mean: 73 Laboratory Tests 06/26/21 21:58: Creatinine 1.09, Platelet Count 279, Total Bilirubin 0.6 Results/Orders Lab Results Laboratory Tests Test 06/26/21 21:19 06/26/21 21:58 Range/Units Influenza Type A (RT-PCR) Not Detected Not Detecte Influenza Type B (RT-PCR) Not Detected Not Detecte SARS-CoV-2 RNA (RT-PCR) Not Detected Not Detecte White Blood Count 8.4 4.3-11.0 10^3/uL Red Blood Count 5.34 4.30-5.52 10^6/uL Hemoglobin 15.7 13.3-17.7 g/dL Hematocrit 46 40-54 % Mean Corpuscular Volume 86 80-99 fL Mean Corpuscular Hemoglobin 29 25-34 pg Mean Corpuscular Hemoglobin Concent 34 32-36 g/dL Red Cell Distribution Width 12.8 10.0-14.5 % Platelet Count 279 130-400 10^3/uL Mean Platelet Volume 10.8 9.0-12.2 fL Immature Granulocyte % (Auto) 1 % Neutrophils (%) (Auto) 65 42-75 % Lymphocytes (%) (Auto) 15 12-44 % Monocytes (%) (Auto) 14 H 0-12 % Eosinophils (%) (Auto) 6 0-10 % Basophils (%) (Auto) 1 0-10 % Neutrophils # (Auto) 5.5 1.8-7.8 10^3/uL Lymphocytes # (Auto) 1.3 1.0-4.0 10^3/uL Monocytes # (Auto) 1.1 H 0.0-1.0 10^3/uL Eosinophils # (Auto) 0.5 H 0.0-0.3 10^3/uL Basophils # (Auto) 0.0 0.0-0.1 10^3/uL Immature Granulocyte # (Auto) 0.1 0.0-0.1 10^3/uL Sodium Level 137 135-145 MMOL/L Potassium Level 3.7 3.6-5.0 MMOL/L Chloride Level 102 98-107 MMOL/L Carbon Dioxide Level 21 21-32 MMOL/L Anion Gap 14 5-14 MMOL/L Blood Urea Nitrogen 14 7-18 MG/DL Creatinine 1.09 0.60-1.30 MG/DL Estimat Glomerular Filtration Rate 73 BUN/Creatinine Ratio 13 Glucose Level 202 H 70-105 MG/DL Calcium Level 9.4 8.5-10.1 MG/DL Corrected Calcium 9.2 8.5-10.1 MG/DL Total Bilirubin 0.6 0.1-1.0 MG/DL Aspartate Amino Transf (AST/SGOT) 24 5-34 U/L Alanine Aminotransferase (ALT/SGPT) 22 0-55 U/L Alkaline Phosphatase 73 40-136 U/L Total Protein 7.4 6.4-8.2 GM/DL Albumin 4.3 3.2-4.5 GM/DL My Orders Orders - [employer] Cbc With Automated Diff (06/26/21 21:37) Comprehensive Metabolic Panel (06/26/21 21:37) Chest 1 View, Ap/Pa Only (06/26/21 21:37) Covid 19 Inhouse Test (06/26/21 21:37) Influenza A And B By Pcr (06/26/21 21:37) Guaifenesin Sf Syrup (Robitussin Sf Syru (06/26/21 21:45) Ct Chest W (06/26/21 22:13) Promethazine/ Codeine Syrup (Phenergan W (06/26/21 23:00) Medications Given in ED Current Medications Medications Dose Ordered Sig/Jared Route Start Time Stop Time Status Last Admin Dose Admin Iohexol 100 ml ONCE ONCE IV 06/27/21 01:30 06/27/21 01:31 DC 06/26/21 22:50 75 ML Promethazine HCl/ Codeine 5 ml ONCE ONCE PO 4/27/22 23:00 06/26/21 23:01 DC 06/26/21 23:02 5 ML Sodium Chloride 10 ml NEEDED PRN IV 06/27/21 01:30 06/27/21 01:39 DC 06/26/21 22:50 10 ML Sodium Chloride 100 ml ONCE ONCE IV 06/27/21 01:30 06/27/21 01:31 DC 06/26/21 22:50 80 ML Vital Signs/I&O 06/26/21 06/26/21 21:12 23:20 Temp 37.0 36.7 Pulse 86 90 Resp 20 16 B/P (MAP) 111/55 (73) 162/108 Pulse Ox 95 95 O2 Delivery Room Air Room Air Capillary Refill : Less Than 3 Seconds Blood Pressure Mean: 73 Departure Departure-Patient Inst. Referrals: DECLAN CARRIZALES MD (PCP/Family) Primary Care Physician [employer] Jun 26, 2021 22:47
[2021-06-26] MEDS ORDERED: PROMETHAZINE/ CODEINE SYRUP 5 ML UDC PO ONE (23:00)
[2021-06-26 23:20] VITALS: BP 162/108
[2021-06-27] MEDS ORDERED: CATHETER FLUSH 10 ML SYR IV PRN (01:30)
[2021-06-27] MEDS ORDERED: NS 100 ML (IVPB) BAG IV ONE (01:30)
[2021-06-27] MEDS ORDERED: IOHEXOL 350 MG/ML 100 ML (OMNIPAQUE 350) VIAL IV ONE (01:30)
--- NOTE | 2021-06-27 06:53 | Diagnostic Imaging Report ---
PROCEDURE: CT chest with contrast only. TECHNIQUE: Multiple contiguous axial images were obtained through the chest after administration of intravenous contrast. Auto Exposure Controls were utilized during the CT exam to meet ALARA standards for radiation dose reduction. INDICATION: Mass COMPARISON: Radiographs from same date FINDINGS: No significant adenopathy of the chest. Mild scattered vascular calcifications without aneurysmal dilatation of the thoracic aorta. The heart is within normal limits in size. No significant pericardial effusion. No pleural effusion. A large hiatal hernia is present with the majority of the stomach being within the chest. This accounts for the gas lucency noted on prior radiographs. This is associated with adjacent scarring and atelectasis. No pneumothorax. Calcified granuloma within the left upper lobe. Mild tree-in-bud nodularity is identified within the left upper lobe extending into the lingula. Calcified granuloma within the left lower lobe. The trachea is patent. Diffusely decreased density throughout the liver. This is consistent with fatty infiltration of the liver with focal fatty sparing adjacent to gallbladder fossa. Gas lucencies within the gallbladder felt to relate to gallstones. Exophytic left renal cyst. Bilateral shoulder arthroplasties are present. Scattered osseous degenerative changes without acute osseous abnormality. IMPRESSION: Small region of tree-in-bud nodularity within the left upper lobe and lingula. This is felt to relate to a small airway versus small vessel infectious versus inflammatory process. Large hiatal hernia. This accounts for the gas lucency noted on prior radiographs. Hepatomegaly with associated fatty infiltration of the liver. Cholelithiasis. Report was faxed and called to nurse Saravanan [facility] by linda at 6:50am. NEEL Shultz, was also notified. Dictated by: Dictated on workstation # [id number]
== END 2021-06-26 23:20 | disposition home or self-care (01) ==
LOC: EDUNIT# 20:55 → ER 20:57
DX: R05.9 Cough, unspecified (principal); Z20.822 Contact with and (suspected) exposure to COVID-19
CPT/HCPCS: 36415; 71045; 71260; 80053; 85025; 87636

== ENCOUNTER 2022-01-02 14:24 | Outpatient (CLI) | payer MEDICARE, OTHER ==
[~2022-01-02] VITALS: Ht 185.5 cm; Wt 113.6 kg
[2022-01-02] MEDS ORDERED: FOSI40TA65 PO (14:51)
[2022-01-02] MEDS ORDERED: HYDR25TA4 PO (14:51)
[2022-01-02] MEDS ORDERED: AMLO-251 PO (14:51)
[2022-01-02] MEDS ORDERED: VENL75CA93 PO (14:51)
== END 2022-01-02 16:57 | disposition home or self-care (01) ==
LOC: PREOP 14:24
PROVIDERS: ATTEND Specialist
DX: Z01.818 Encounter for other preprocedural examination (principal)

== ENCOUNTER 2022-01-03 11:10 | Day surgery (SDC) | payer MEDICARE, OTHER ==
[~2022-01-03] VITALS: Ht 185.5 cm; Wt 113.6 kg
[~2022-01-03 11:10] MED LIST changes: +VENL75CA93 PO
[2022-01-03] MEDS: TETRACAINE 0.5% OPHTH SOLN 4 ML BTL (SINGLE DOSE ONLY) OU PRN ×4 (11:26→11:43)
[2022-01-03] MEDS ORDERED: POVIDONE (BETADINE) OPHTH SOLN 5% 30 ML OP ONE (11:30)
[2022-01-03] MEDS ORDERED: MOXIFLOXACIN OPHTH SOLN 5 MG/ML 0.3 ML SYRINGE OP ONE (11:30)
[2022-01-03] MEDS ORDERED: acetaZOLAMIDE ER 500 MG CAP (DIAMOX SEQUELS) PO ONE (11:30)
[2022-01-03] MEDS ORDERED: TIMOLOL MALEATE 0.5% 5 ML (TIMOPTIC) BTL OU PRN (11:30)
[2022-01-03 11:34] VITALS: BP 149/95
[2022-01-03] MEDS ORDERED: MIDAZOLAM 2 MG/2 ML (VERSED) VIAL ONE (11:37)
[2022-01-03] MEDS: PHENYLEPHRINE 10% OPHTH (NEO-SYN) 5 ML BTL OU SCH ×3 (11:39→11:48)
[2022-01-03] MEDS: TROPICAMIDE 1% OPH SOLN (MYDRIACYL) 15 ML BTL OP SCH ×3 (11:39→11:48)
--- NOTE | 2022-01-03 12:25 | Ophthalmologist Pre-Op Note ---
Pre-Operative Progress Note H&P Reviewed The H&P was reviewed, patient examined and no changes noted. Date H&P Reviewed: Jan 03, 2022 Time H&P Reviewed: 12:11 Pre-Op Dx Cataract, Right Eye TYREE MONIQUE MD Jan 03, 2022 12:25
--- NOTE | 2022-01-03 12:25 | Ophthalmology Operative Report ---
Cataract removal/placement IOL PREOPERATIVE DIAGNOSIS: Cataract Right Eye POSTOPERATIVE DIAGNOSIS: Cataract Right Eye PROCEDURE: Cataract removal and placement of posterior chamber implant, right eye SURGEON: Felix Monique ANESTHESIA: Topical with sedation COMPLICATIONS: None ESTIMATED BLOOD LOSS: Minimal DESCRIPTION OF PROCEDURE: After proper informed consent was obtained, the patient, a 71 male, was taken to the Operating Room and the right eye was anesthetized with tetracaine. The right eye was then prepped and draped in the usual manner. A wire lid speculum was placed. A paracentesis was made at the left hand position. Preservative free lidocaine was injected into the anterior chamber followed by viscoelastic. A clear corneal incision was made in the temporal position. A capsulorrhexis was preformed and the central nuclear and cortical material were removed. The posterior capsule was polished and Roney 16.5 AU00T0 IOL was placed into the capsular bag. The residual viscoelastic was aspirated and balanced saline solution was injected into the anterior chamber. Moxifloxacin was injected into the anterior chamber. The wound was checked and found to be water tight. The patient tolerated the procedure well without complications. FELIX MONIQUE MD Jan 03, 2022 12:25
[2022-01-03 12:27] VITALS: BP 134/99
--- NOTE | 2022-01-03 12:41 | Anesthesia-General Post-Op ---
MAC Patient Condition Mental Status/LOC: Same as Preop Cardiovascular: Satisfactory Nausea/Vomiting: Absent Respiratory: Satisfactory Pain: Controlled Complications: Absent Post Op Complications Complications None Follow Up Care/Instructions Patient Instructions None needed. Anesthesiology Discharge Order Discharge Order Patient is doing well, no complaints, stable vital signs, no apparent adverse anesthesia problems. No complications reported per nursing. RICHARD BRAOV CRNA Jan 03, 2022 12:40
== END 2022-01-03 12:28 | disposition home or self-care (01) ==
LOC: SDC 11:10
PROVIDERS: ATTEND Specialist
DX: H25.9 Unspecified age-related cataract (principal)
CPT/HCPCS: 66984; V2632

== ENCOUNTER 2022-05-10 03:45 | Inpatient (IN) | payer MEDICARE, OTHER ==
[~2022-05-10] VITALS: Ht 185.5 cm; Wt 109.5 kg
[2022-05-10] MEDS ORDERED: NS IV 1000 ML 1,000 ML IV SCH (04:00)
[2022-05-10] MEDS ORDERED: dilTIAZem DRIP PRE-MIX 125 ML IV SCH (04:00)
[2022-05-10] MEDS ORDERED: ENOXAPARIN 100 MG/1 ML (LOVENOX) SYR SC ONE (04:00)
[2022-05-10] MEDS ORDERED: NITROGLYCERIN 0.4 MG SL TABS BTL 25'S SL PRN ×2 (04:00→06:30)
[2022-05-10] MEDS ORDERED: ASPIRIN 81 MG CHEW (CHILDREN'S ASA) PO ONE (04:00)
[2022-05-10 04:06] LABS: BASOPHILS % (AUTO) 0 % (0-10); EOSINOPHILS # (AUTO) 0.3 10^3/uL (0.0-0.3); EOSINOPHILS % (AUTO) 3 % (0-10); HEMATOCRIT 48 % (40-54); HEMOGLOBIN 16.9 g/dL (13.3-17.7); LYMPHOCYTES # (AUTO) 2.4 10^3/uL (1.0-4.0); LYMPHOCYTES % (AUTO) 22 % (12-44); MEAN CORPUSCULAR HEMOGLOBIN 29 pg (25-34); MEAN CORPUSCULAR HGB CONC 35 g/dL (32-36); MEAN CORPUSCULAR VOLUME 83 fL (80-99); MEAN PLATELET VOLUME 10.9 fL (9.0-12.2); MONOCYTES # (AUTO) 0.9 10^3/uL (0.0-1.0); MONOCYTES % (AUTO) 9 % (0-12); NEUTROPHILS # (AUTO) 7.1 10^3/uL (1.8-7.8); NEUTROPHILS % (AUTO) 65 % (42-75); PLATELET COUNT 320 10^3/uL (130-400); WHITE BLOOD COUNT 10.9 10^3/uL (4.3-11.0)
[2022-05-10 04:13] LABS: ALBUMIN 4.1 GM/DL (3.2-4.5)
[2022-05-10 04:14] LABS: POTASSIUM 3.6 MMOL/L (3.6-5.0)
[2022-05-10 04:15] LABS: CALCIUM 8.9 MG/DL (8.5-10.1)
[2022-05-10] MEDS ORDERED: ENOXAPARIN 60 MG/0.6 ML (LOVENOX) SYR SC ONE (04:15)
[2022-05-10 04:16] LABS: TOTAL PROTEIN 7.5 GM/DL (6.4-8.2)
[2022-05-10 04:18] LABS: BILIRUBIN,TOTAL 0.5 MG/DL (0.1-1.0)
--- NOTE | 2022-05-10 04:18 | ED Cardiac General ---
History of Present Illness General Stated Complaint: NECK/CHEST PAIN/SOA Source: patient History of Present Illness Date Seen by Provider: May 10, 2022 Time Seen by Provider: 03:48 Initial Comments PT ARRIVES VIA POV FROM HOME PT STATES AROUND 2100 TONIGHT, WHILE SITTING AND WATCHING TV, HE BEGAN HAVING CHEST DISCOMFORT, WITH PAIN RADIATING INTO HIS NECK. HE HAS ALSO BEEN SHORT OF BREATH, ESPECIALLY WITH EXERTION. ADDITIONALLY, HE HAS BEEN DIZZY WITH EXERTION TONIGHT HE RATES CHEST DISCOMFORT 7/10 AT THIS TIME, DESCRIBES A DULL PRESSURE. NOTHING WORSENS OR IMPROVES CHEST PAIN NO SWELLING IN LEGS/FEET OR PAIN IN CALVES NO SWEATS NO NAUSEA/VOMITING NO SYNCOPE HE STATES THAT THE LAST 3 DAYS HIS PULSE HAS BEEN HIGH--NORMALLY HIS PULSE IS IN THE 70'S. PULSES HAS BEEN IN 110'S THE LAST 3 DAYS, AND TONIGHT IT WAS 145. PT DENIES FEVER OR RECENT ILLNESS, BUT DID FEEL HOT BEFORE COMING TO ER TONIGHT TEMP IS 100.4 ON ARRIVAL PT HAS HAD COVID VACCINE X 2, NO FLU VACCINE. 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 HIS ONLY SURGERIES HAVE BEEN ORTHOPEDIC SURGERIES HE WAS RECENTLY STARTED ON MEDICATION FOR HIS PROSTATE, OTHERWISE NO CHANGES IN MEDICATIONS PCP: DR. RA MASTERS PT ALSO GOES TO [facility] IN [place] TWICE A YEAR FOR ROUTINE EXAMS. Allergies and Home Medications Allergies Coded Allergies: morphine (Unverified Allergy, Mild, 11/16/10) Patient Home Medication List Home Medication List Reviewed: Yes Amlodipine Besylate (Amlodipine Besylate) 10 Mg Tablet, 10 MG PO DAILY, (Reported) Entered as Reported by: ARVIND HAN on 01/02/221450 Fosinopril Sodium (Fosinopril Sodium) 40 Mg Tablet, 40 MG PO DAILY, (Reported) Entered as Reported by: ARVIND HAN on 01/02/221450 Hydrochlorothiazide (Hydrochlorothiazide) 25 Mg Tablet, 25 MG PO DAILY, (Reported) Entered as Reported by: ARVIND HAN on 01/02/221450 Venlafaxine HCl (Venlafaxine HCl ER) 75 Mg Cap.er.24h, 75 MG PO DAILY, (Reported) Entered as Reported by: ARVIND HAN on 11/3/22 1451 Review of Systems Review of Systems Constitutional: see HPI; No diaphoresis; dizziness, fever EENTM: No Symptoms Reported Respiratory: See HPI; Denies Cough, Denies Orthopnea; Shortness of Air, SOA With Exertion, SOA at Rest Cardiovascular: See HPI, Chest Pain; Denies Edema; Irregular Heart Rate, Lightheadedness; Denies Syncope Gastrointestinal: No Symptoms Reported; Denies Abdominal Pain, Denies Nausea, Denies Vomiting Genitourinary: See HPI; Denies Burning Musculoskeletal: see HPI, neck pain Skin: no symptoms reported Psychiatric/Neurological: No Symptoms Reported Endocrine: No Symptoms Reported Hematologic/Lymphatic: No Symptoms Reported Past [id number] Hx Patient Social History Tobacco Use?: No Substance use?: No Alcohol Use?: No Immunizations Up To Date Tetanus Booster (TDap): Unknown PED Vaccines UTD: No First/Initial COVID19 Vaccinat: 2020 Second COVID19 Vaccination Reji: 2020 Past Medical History Surgeries: Yes (R/L SHOULDER replaced, R TKR, GANGLION CYST, L KNEE, hand, bilat hip replac) Eye Surgery, Joint Replacement, Orthopedic Respiratory: Yes Sleep Apnea Currently Using CPAP: Yes Currently Using BIPAP: No Cardiac: Yes Hypertension Neurological: No Reproductive Disorders: No Genitourinary: Yes Prostate Problems Gastrointestinal: Yes Diverticulosis, Hemorrhoids Musculoskeletal: Yes (MULTIPLE ORTHOPEDIC SURGERIES) Arthritis Endocrine: No HEENT: Yes Hearing Impairment: Hard of Hearing, Bilateral Hearing Aide Cancer: No Psychosocial: Yes Depression Integumentary: No Blood Disorders: No Family Medical History Stroke PAST SURGICAL HISTORY: RIGHT CATARACT SURGERY 12/2021 BILATERAL SHOULDER REPLACEMENTS BILATERAL HIP REPLACEMENTS BILATERAL KNEE REPLACEMENTS GANGLION CYST REMOVED SCREENING COLONOSCOPIES--LAST ONE [address] SMITH. Physical Exam Vital Signs Vital Signs - First Documented Capillary Refill : Height, Weight, BMI Height: 6'1.00" Weight: 255lbs. 0.0oz. 115.327708fn; 35.00 BMI Method:Stated General Appearance: No Apparent Distress, WD/WN HEENT: PERRL/EOMI Neck: Full Range of Motion, Normal Inspection, Non Tender, Supple; No Carotid Bruit, No JVD Respiratory: Chest Non Tender, Normal Breath Sounds, No Accessory Muscle Use, No Respiratory Distress Cardiovascular: No Edema, No JVD, No Murmur, Normal Peripheral Pulses, Irregularly Irregular, Tachycardia Gastrointestinal: Non Tender, Soft Extremity: Normal Capillary Refill, Non Tender, No Calf Tenderness, No Pedal Edema Neurologic/Psychiatric: Alert, Oriented x3, No Motor/Sensory Deficits, Normal 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, 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 Norm as Tested Skin: Normal Color, Warm/Dry (VERY WARM); No Rash Focused Exam Sepsis Stage: Ruled Out Reason for ruling out sepsis: DOES NOT MEET CRITERIA Possible Source: Unknown Lactate Level 05/10/22 03:55: Lactic Acid Level 1.82 Time of Focused Exam: 05:00 Respiratory: Normal Breath Sounds, No Accessory Muscle Use, No Respiratory Distress Cardiovascular: No Edema, No JVD, No Murmur, Irregularly Irregular (RATE LESS THAN 100) Capillary Refill: Less Than 3 Seconds Skin: normal color, warm/dry Lactic Acid Level Laboratory Tests Test 05/10/22 03:55 Lactic Acid Level 1.82 MMOL/L (0.50-2.00) Within 3hrs of presentation: Admin fluids, Admin ABX, Blood cultures prior to ABX's, Focus exam, Lactate level Progress/Results/Core Measures Results/Orders Lab Results Laboratory Tests Test 05/10/22 03:55 05/10/22 04:00 Range/Units White Blood Count 10.9 4.3-11.0 10^3/uL Red Blood Count 5.75 H 4.30-5.52 10^6/uL Hemoglobin 16.9 13.3-17.7 g/dL Hematocrit 48 40-54 % Mean Corpuscular Volume 83 80-99 fL Mean Corpuscular Hemoglobin 29 25-34 pg Mean Corpuscular Hemoglobin Concent 35 32-36 g/dL Red Cell Distribution Width 12.1 10.0-14.5 % Platelet Count 320 130-400 10^3/uL Mean Platelet Volume 10.9 9.0-12.2 fL Immature Granulocyte % (Auto) 1 % Neutrophils (%) (Auto) 65 42-75 % Lymphocytes (%) (Auto) 22 12-44 % Monocytes (%) (Auto) 9 0-12 % Eosinophils (%) (Auto) 3 0-10 % Basophils (%) (Auto) 0 0-10 % Neutrophils # (Auto) 7.1 1.8-7.8 10^3/uL Lymphocytes # (Auto) 2.4 1.0-4.0 10^3/uL Monocytes # (Auto) 0.9 0.0-1.0 10^3/uL Eosinophils # (Auto) 0.3 0.0-0.3 10^3/uL Basophils # (Auto) 0.0 0.0-0.1 10^3/uL Immature Granulocyte # (Auto) 0.1 0.0-0.1 10^3/uL Erythrocyte Sedimentation Rate 2 0-30 MM/HR Prothrombin Time 15.0 H 12.2-14.7 SEC INR Comment 1.1 0.8-1.4 Activated Partial Thromboplast Time 32 24-35 SEC D-Dimer < 0.27 0.00-0.49 UG/ML Sodium Level 135 135-145 MMOL/L Potassium Level 3.6 3.6-5.0 MMOL/L Chloride Level 102 98-107 MMOL/L Carbon Dioxide Level 21 21-32 MMOL/L Anion Gap 12 5-14 MMOL/L Blood Urea Nitrogen 19 H 7-18 MG/DL Creatinine 1.06 0.60-1.30 MG/DL Estimat Glomerular Filtration Rate 75 BUN/Creatinine Ratio 18 Glucose Level 266 H 70-105 MG/DL Lactic Acid Level 1.82 0.50-2.00 MMOL/L Calcium Level 8.9 8.5-10.1 MG/DL Corrected Calcium 8.8 8.5-10.1 MG/DL Magnesium Level 1.8 1.6-2.4 MG/DL Total Bilirubin 0.5 0.1-1.0 MG/DL Aspartate Amino Transf (AST/SGOT) 27 5-34 U/L Alanine Aminotransferase (ALT/SGPT) 27 0-55 U/L Alkaline Phosphatase 77 40-136 U/L Total Creatine Kinase 42 30-200 U/L Creatine Kinase MB 0.5 <6.6 NG/ML Myoglobin 43.9 10.0-92.0 NG/ML Troponin I < 0.028 <0.028 NG/ML C-Reactive Protein High Sensitivity 1.45 H 0.00-0.50 MG/DL B-Type Natriuretic Peptide 84.5 <100.0 PG/ML Total Protein 7.5 6.4-8.2 GM/DL Albumin 4.1 3.2-4.5 GM/DL Amylase Level 19 L 25-125 U/L Lipase 14 8-78 U/L Influenza Type A (RT-PCR) Not Detected Not Detecte Influenza Type B (RT-PCR) Not Detected Not Detecte SARS-CoV-2 RNA (RT-PCR) Not Detected Not Detecte My Orders Orders - FESTUS BANEGAS DO Ed Iv/Invasive Line Start (05/10/22 03:48) Ekg Tracing (05/10/22 03:48) O2 (05/10/22 03:48) Monitor-Rhythm Ecg Trace Only (05/10/22 03:48) Cbc With Automated Diff (05/10/22 03:48) Magnesium (05/10/22 03:48) Chest 1 View, Ap/Pa Only (05/10/22 03:48) Ekg Tracing (05/10/22 03:48) Comprehensive Metabolic Panel (05/10/22 03:48) Myoglobin Serum (05/10/22 03:48) Protime With Inr (05/10/22 03:48) Partial Thromboplastin Time (05/10/22 03:48) O2 (05/10/22 03:48) Ed Iv/Invasive Line Start (05/10/22 03:48) Creatine Kinase (05/10/22 03:48) Creatine Kinase Mb (05/10/22 03:48) Lipase (05/10/22 03:48) Amylase (05/10/22 03:48) Bnp Jonnathan (05/10/22 03:48) Fibrin Degradation Products (05/10/22 03:48) Troponin I Jonnathan (05/10/22 03:48) Nitroglycerin 0.4 Mg Btl 25's (Nitrostat (05/10/22 04:00) Aspirin Chewable Tablet (Baby Aspirin Ch (05/10/22 04:00) Enoxaparin Injection (Lovenox Injection) (05/10/22 04:00) Diltiazem Injection (Cardizem Injection) (05/10/22 04:00) Diltiazem Drip Pre-Mix (Cardizem Drip Pr (05/10/22 04:00) Hs C Reactive Protein (05/10/22 03:58) Erythrocyte Sedimentation Rate (05/10/22 03:58) Covid 19 Inhouse Test (05/10/22 03:58) Blood Culture (05/10/22 03:58) Urinalysis (05/10/22 03:58) Urine Culture (05/10/22 03:58) Ed Iv/Invasive Line Start (05/10/22 03:58) Vital Signs Adult Sepsis Patie Q15M (05/10/22 03:58) O2 (05/10/22 03:58) Remove Rings In Anticipation O (05/10/22 03:58) Lactic Acid Analyzer (05/10/22 03:58) Influenza A And B By Pcr (05/10/22 03:58) Isolation Central Supply Req (05/10/22 03:58) Ed Iv/Invasive Line Start (05/10/22 03:58) Ns Iv 1000 Ml (Sodium Chloride 0.9%) (05/10/22 04:00) Ekg Tracing (05/10/22 04:09) Enoxaparin Injection (Lovenox Injection) (05/10/22 04:15) Cefepime Injection (Maxipime Injection) (05/10/22 05:15) Hemoglobin A1c (05/10/22 05:42) Beta Hydroxybutyrate (05/10/22 05:42) Medications Given in ED Current Medications Medications Dose Ordered Sig/Jared Route Start Time Stop Time Status Last Admin Dose Admin Aspirin 324 mg ONCE ONCE PO 05/10/22 04:00 05/10/22 04:02 DC 05/10/22 04:02 324 MG Cefepime HCl 1000 mg/Sodium Chloride 50 ml @ 100 mls/hr ONCE ONCE IV 05/10/22 05:15 05/10/22 05:44 05/10/22 05:19 100 MLS/HR Diltiazem HCl 20 mg ONCE ONCE IVP 05/10/22 04:00 05/10/22 04:02 DC 05/10/22 04:06 20 MG Enoxaparin Sodium 20 mg ONCE ONCE SC 05/10/22 04:15 05/10/22 04:16 DC 05/10/22 04:22 20 MG Enoxaparin Sodium 100 mg ONCE ONCE SC 05/10/22 04:00 05/10/22 04:02 DC 05/10/22 04:07 100 MG Vital Signs/I&O 05/10/22 05/10/22 05/10/22 05/10/22 03:50 03:50 04:06 04:08 Temp 38.0 Pulse 148 143 93 Resp 20 B/P (MAP) 148/100 (116) 133/100 109/75 Pulse Ox 95 96 O2 Delivery Room Air Nasal Cannula Blood Pressure Mean: 86 Progress Progress Note : Progress Note PPE WORN COVID AND FLU TESTING DONE SEPSIS PROTOCOL INITIATED GIVEN: -IV FLUIDS -ASPIRIN -LOVENOX -CARDIZEM BOLUS AND DRIP -ANTIBIOTICS NO DETERIORATION IN PT'S CONDITION DURING ER STAY HEART RATE DOWN TO LESS THAN 100 WITH CARDIZEM, BUT PT IS STILL IN ATRIAL FIBRILLATION ALL CARDIAC AND RESPIRATORY SYMPTOMS RESOLVED WHEN HEART RATE DECREASED PT HAD NO FURTHER COMPLAINTS FOR REMAINDER OF ER STAY PT WITH MULTIPLE ISSUES AT THIS TIME--IN ADDITION TO NEW ONSET ATRIAL FIB WITH RVR, HE ALSO HAS NEW ONSET HYPERGLYCEMIA, HE ALSO HAS FEVER--NO SOURCE IDENTIFIED AT THIS TIME, BUT PT IS NOT ABLE TO GIVE URINE SPECIMEN AT THIS TIME--HE HAS BEEN HAVING "PROSTATE PROBLEMS" WITH URINARY URGENCY AND FREQUENCY AND RECENTLY BEEN STARTED ON A MEDICATION FOR PROSTATE PT WAS UNABLE TO GIVE A URINE SPECIMEN DURING ER STAY REVIEWED PRIOR RECORDS, INCLUDING ER VISITS, TESTS/OUTPATIENT PROCEDURES, H&P'S DISCUSSED TEST RESULTS, NEED FOR ADMIT AND PT IS AGREEABLE TO PLAN. Initial ECG Impression Date: May 10, 2022 Initial ECG Impression Time: 03:49 Initial ECG Rate: 145 Initial ECG Rhythm: A Fib/Flutter Initial ECG Impression: Atrial Fibrillation w/RVR Initial ECG Comparisson: Changed (FROM NSR ON 04/24/2015) Comment INTERPRETED BY ME EKG : EKG Time: 04:01 Rate: 93 Rhythm: A Fib/Flutter Diagnostic Imaging Comments CXR--PENDING RADIOLOGIST REVIEW -CHRONIC CHANGES, NO ACUTE PROCESS. Reviewed: Reviewed by Me Departure Communication (Admissions) 0508--SPOKE WITH DR. LOZANO, HOSPITALIST, ACCEPTS PT FOR ADMIT. WILL CONSULT CARDIOLOGY AND E-ICU THIS AM 0510--REPORT TO E-ICU, RECOMMENDATIONS NOTED, AND SHE ADVISED TO ORDER ECHOCARD IOGRAM THIS AM. Impression Primary Impression: New onset atrial fibrillation Additional Impressions: Atrial fibrillation with RVR HTN (hypertension) HYPERGLYCEMIA-NEW ONSET Fever Disposition: ADMITTED INPATIENT Condition: Stable Admissions Decision to Admit Reason: Admit from ER (General) Decision to Admit/Date: May 10, 2022 Time/Decision to Admit Time: 05:10 Departure-Patient Inst. Referrals: RA MASTERS MD (PCP/Family) Primary Care Physician FESTUS BANEGAS DO May 10, 2022 04:18
[2022-05-10 04:20] LABS: CREATININE SERUM 1.06 MG/DL (0.60-1.30); INR 1.1 (0.8-1.4)
[2022-05-10 04:22] LABS: MAGNESIUM 1.8 MG/DL (1.6-2.4)
[2022-05-10 04:30] LABS: CREATINE KINASE MB 0.5 NG/ML (<6.6)
[2022-05-10] MEDS ORDERED: CEFEPIME INJECTION 1,000 MG in NS (IVPB) 50 ML IV ONE (05:15)
[2022-05-10] MEDS ORDERED: fentaNYL INJ 100 MCG/2 ML AMP IV PRN (06:30)
[2022-05-10] MEDS ORDERED: ONDANSETRON 4 MG/2 ML (SDV) Z0FRAN IVP PRN (06:30)
[2022-05-10] MEDS ORDERED: EPINEPHrine 1 MG INJECTION 4 MG in NS (IVPB) 248 ML IV SCH (06:30)
[2022-05-10 06:32] VITALS: BP 128/93
--- NOTE | 2022-05-10 06:32 | Diagnostic Imaging Report ---
INDICATION: Chest pain. COMPARISON: 06/26/2021. FINDINGS: There is flattening of the diaphragms with some mild interstitial prominence suggesting the possibility of underlying COPD. There is no new airspace consolidation or pneumonia. There is no significant effusion. There is no pneumothorax. There is an unchanged hiatal hernia. Pulmonary vascularity appears appropriate. There has been prior bilateral shoulder arthroplasty. IMPRESSION: 1. Hyperinflation suggesting air trapping and COPD. No acute superimposed cardiopulmonary process evident. 2. Unchanged paraesophageal hiatal hernia. Dictated by: Dictated on workstation # [id number]
[2022-05-10] MEDS: VASOPRESSIN INJECTION 20 UNIT in NS (IVPB) 100 ML IV SCH ×2 (06:38→18:07)
[2022-05-10] MEDS: NOREPINEPHRINE 8 MG/250 ML 250 ML IV SCH ×2 (06:38→18:07)
[2022-05-10] MEDS: dilTIAZem DRIP 125 MG/125 ML DRIP IV SCH ×3 (06:39→19:32)
[2022-05-10] MEDS: NS IV 1000 ML 1,000 ML IV SCH ×2 (06:40→18:10)
[2022-05-10 07:19] LABS: TRIGLYCERIDES 101 MG/DL (<150); VLDL CHOLESTEROL 20 MG/DL (5-40)
[2022-05-10 07:24] LABS: CHOLESTEROL 140 MG/DL (< 200)
[2022-05-10 07:25] LABS: HDL CHOLESTEROL 33 MG/DL (40-60)
[2022-05-10] MEDS: ASPIRIN E.C. 81 MG (ECOTRIN) TAB PO SCH (08:45)
--- NOTE | 2022-05-10 09:39 | Tele-ICU Progress Note ---
Subjective Date Seen by a Provider: May 10, 2022 Subjective/Events-last exam This virtual visit was conducted using real time audio/video. Thank you for asking us to see this patient for critical care services due to Afib/RVR, hyperglycemia and fever. Recent events: PMH: HTN, Dep. PE: VSS. O2 sat 95% on 2 LPM. HEENT: No obvious masses, adenopathy or JVD. Chest: clear to auscultation. CV: IRREG 95-105 S1 S2 No murmur or added sounds. Abd: Non-tender. Bowel sounds Y. : Unremarkable. Nicholson N. SOIL TECHNICIAN/psychiatric: Grossly intact. No obvious focal findings. Extremities: No edema. Capillary refill < 3 seconds. Skin: unremarkable. Results: Elevated BG 266. CXR: hyperinflated. Available chart/ vitals / labs / images reviewed. Video assessment done using teleICU camera, rest of exam as per RN. A/P: Respiratory insufficiency: Continue present management with O2 Monitor for increasing oxygenation needs. Critical Care: critically ill patient. Cont.Cardizem, ASA, SSI, zack. Discussed with PARISH Campuzano. Asked RN to reach out to eICU if any questions or concerns later. Time spent with patient/coordination of care with other health professionals (mins): 18 Sepsis Event Evaluation Height, Weight, BMI Height: 6'1.00" Weight: 255lbs. 0.0oz. 115.539372bm; 32.63 BMI Method:Stated Focused Exam Lactate Level 05/10/22 03:55: Lactic Acid Level 1.82 05/10/22 06:55: Lactic Acid Level 1.51 Time of Focused Exam: 05:00 Lactic Acid Level Laboratory Tests Test 05/10/22 06:55 Lactic Acid Level 1.51 MMOL/L (0.50-2.00) Exam Exam Patient acknowledged, consented, and participated in this virtual visit which was conducted using real time audio/video Vital Signs Date Time Temp Pulse Resp B/P (MAP) Pulse Ox O2 Delivery O2 Flow Rate FiO2 05/10/22 09:00 96 22 133/80 (95) 96 Nasal Cannula 2.00 05/10/22 08:00 94 115/74 (86) 94 Nasal Cannula 2.00 05/10/22 07:00 84 24 118/76 (91) 96 Nasal Cannula 2.00 05/10/22 07:00 107 05/10/22 06:39 92 128/93 05/10/22 06:32 36.3 86 29 128/93 (105) 97 Nasal Cannula 2.00 05/10/22 06:25 84 05/10/22 06:17 Nasal Cannula 2.00 05/10/22 06:12 36.0 90 133/79 (97) 98 Nasal Cannula 2.00 05/10/22 05:50 36.2 102 12 113/91 98 Nasal Cannula 2.00 05/10/22 04:08 93 109/75 05/10/22 04:06 143 133/100 05/10/22 03:50 96 Nasal Cannula 05/10/22 03:50 38.0 148 20 148/100 (116) 95 Room Air I & O 05/10/22 07:00 Intake Total 1050 ml Balance 1050 ml Height & Weight Height: 6'1.00" Weight: 255lbs. 0.0oz. 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
[2022-05-10 09:50] LABS: BILIRUBIN,URINE NEGATIVE (NEGATIVE); CLARITY,URINE CLEAR; COLOR,URINE YELLOW; GLUCOSE, URINE (UA) 2+ (NEGATIVE); KETONES,URINE TRACE (NEGATIVE); LEUKOCYTE ESTERASE ,URINE NEGATIVE (NEGATIVE); NITRITE,URINE NEGATIVE (NEGATIVE); PROTEIN,URINE TRACE (NEGATIVE)
[2022-05-10 10:06] LABS: BACTERIA,URINE NEGATIVE /HPF
[2022-05-10] MEDS: inSUlin ASPART (NovoLOG) 1 UNIT/0.01 ML (CHARGE PER UNIT) SC SCH ×3 (11:29→21:37)
[2022-05-10] MEDS ORDERED: CEFEPIME 1,000 MG/NS 50 ML IVPB IV SCH ×2 (11:30)
[2022-05-10 11:39] LABS: FREE T4 (FREE THYROXINE) 0.83 NG/DL (0.70-1.48)
--- NOTE | 2022-05-10 11:55 | CONSULTATION REPORT ---
DATE OF SERVICE: 05/10/2022 CHIEF COMPLAINT: Atrial fibrillation. HISTORY OF PRESENT ILLNESS: The patient is a 71-year-old gentleman with a history of hypertension and depression, who presented for evaluation of chest discomfort, fatigue, dizziness. The patient states that over the past 3-4 days, he has been experiencing episodes of lightheadedness, dizziness associated with fast heart rates in the 110s. However, yesterday, he then had began to develop acute onset chest discomfort radiating into the neck associated with shortness of breath with exertion and persistent lightheadedness, dizziness. The discomfort was rated at 7/10. In that setting, he became concerned and decided to come into the Emergency Room for evaluation. Upon arrival, his heart rates were noted to be in the 140s. He does have a CHADS-VASc score of 2. He was evaluated with an EKG, which demonstrates normal sinus rhythm and nonspecific ST-T changes. Chest x-ray was consistent with COPD, but no acute changes were noted. Troponin I has been negative x2. Satting greater than 97% on 2 liters. BNP is normal at 85. In that setting, he was started on a diltiazem drip and given Lovenox 120 mg subcutaneous x1. Today, he states that he is doing better. He does note that his heart rates are not racing as they were on the day prior. He comments that he has not had this episode before, but his Heart rates have been higher than usual for the past 3-4 days prior to this admission. He denies presyncope, syncope. No PND, no orthopnea. No increasing lower extremity edema, but does note some abdominal bloating. REVIEW OF SYSTEMS: All systems were reviewed and are negative except for what has been described in HPI. HOME MEDICATIONS: Include Norvasc 10 mg p.o. daily, fosinopril 40 mg p.o. daily, hydrochlorothiazide 25 mg p.o. daily and Effexor 75 mg p.o. daily. CURRENT HOSPITAL MEDICATIONS: Include Lovenox 120 mg subcutaneous b.i.d., cefepime 1 gram q.6 hours, sliding scale insulin with aspart, aspirin 81, nitro sublingual and diltiazem drip at 15 mg per hour. ALLERGIES: MORPHINE. PAST MEDICAL HISTORY: Hypertension and depression. SOCIAL HISTORY: No tobacco or illicit drug use. Reports drinking one beer every 6 months. FAMILY HISTORY: Noted for mother with hypertension. Father with CVA, at 62. PHYSICAL EXAMINATION: VITAL SIGNS: T-max 38.0, heart rate 80-140, respiratory rate 12-24, blood pressure 110-140/70-90, satting greater than 97% on 2 liters. GENERAL: He is in no acute distress. He is actually resting comfortably in the bed. NECK: Soft and supple. No cervical lymphadenopathy or thyromegaly. LUNGS: Clear to auscultation bilaterally. No wheezes, rales or rhonchi. There is no coarse breath sounds bilaterally, however. HEART: Irregularly irregular, not tachycardic. No murmurs, gallops or rubs are appreciated. ABDOMEN: Positive bowel sounds, soft, mildly distended, nontender. No hepatosplenomegaly. EXTREMITIES: Warm and well perfused. He has no cyanosis, clubbing or edema. SKIN: No lesions, rashes or ecchymoses are noted. LABORATORY DATA AND IMAGING: Significant for troponin I is negative x1. BNP is 85. Sodium is 135, potassium 3.6, chloride 102, bicarbonate 21, BUN 19, creatinine is 1.1, glucose is 266. AST, ALT, alkaline phosphatase are all within normal limits. Troponin I is negative. CRP is elevated at 1.45. BNP is 85. Amylase 19, lipase 14. Lactate is 1.8. UA is negative for any signs of infection. Chest x-ray shows no acute intrathoracic process. COPD is noted. EKG demonstrates normal sinus rhythm, nonspecific ST-T wave changes are noted diffusely. LDL 95, HDL 33, triglycerides 101, total cholesterol 140. INR is 1.1. White blood cell count of 10.9, hematocrit of 48, platelets of 320. ASSESSMENT AND PLAN: The patient is a 71-year-old gentleman with the above-mentioned medical problems who presents for evaluation of chest discomfort and tachycardia. 1. Tachycardia consistent with atrial fibrillation with rapid ventricular response. Heart rate is now controlled on a diltiazem drip at 15 mg per hour. CHADS-VASc score is 2 for age and hypertension, increasing his stroke risk. As such, I agree with anticoagulation. We will transition him to Eliquis 5 mg p.o. b.i.d. We will continue with diltiazem drip for now. I will start him on metoprolol 12.5 mg p.o. b.i.d. with the plan of also transitioning him to diltiazem p.o. 2. Hypertension. Continue hydrochlorothiazide. Hold on fosinopril and Norvasc for now. 3. Depression, restart his Effexor 75 mg p.o. daily. 4. History of atrial fibrillation with rapid ventricular response, continued. We will also obtain a TSH and a free T4. Obtain an echocardiogram to assess his overall cardiac structure and function and a focus on heart rate control. At this point in time, consideration for a DC cardioversion has been undertaken; however, the patient has had symptoms for approximately 72-96 hours of just outside the 24-48 hour window. As such, we will continue with rate control, anticoagulate and consider DC cardioversion at 30 days' time point if he continues to be in atrial fibrillation. DISPO: Plan to make the changes as noted above. Monitor on in-house for another 24-48 hours with subsequent discharge and follow up as an outpatient in the next 2 weeks. Thank you very much for allowing me to participate in his care. Job ID: [id number] DocumentID: [id number] Dictated Date: 05/10/2022 10:59:45 Fire Eater Date: 05/10/2022 11:52:00 Dictated By: JUAN KAT MD MTDD
--- NOTE | 2022-05-10 12:11 | History & Physical-Hospitalist ---
History of Present Illness HPI/Chief Complaint Pt is a 70yoCM with past medical history of hypertension and diet-controlled diabetes who presented to the emergency department due to dizziness and elevated heart rate. He reports his symptoms started last night at rest when he developed chest pain that radiated up to his neck. He complained of some shortness of breath as well along with dyspnea on exertion and significant dizziness. He states that he checked his pulse and noticed that it had been high over the past couple of days in the 1 teens and this evening it was in the 140s. EKG confirmed that he was in atrial fibrillation which is new for him with a rate of 148. He was admitted to the ICU on a Cardizem drip. He reports feeling much better since starting on Cardizem but he still has a generalized chest ache with deep breath. Source: patient Date Seen 05/10/22 Time Seen by a Provider: 08:20 Attending Physician Karan Pereira MD PCP Admitting Physician: Kat Jimenez MD Attending Physician: Kat Jimenez MD Referring Physician Date of Admission May 10, 2022 at 05:57 Home Medications & Allergies Home Medications Reviewed patient Home Medication Reconciliation performed by pharmacy medication reconciliations medication reconciliation technician and/or nursing. Patients Allergies have been reviewed. Allergies Allergies Coded Allergies morphine (Unverified Allergy, Mild, 11/16/10) Past Xnlhlxw-Bcjdkt-Bhcwfh Hx Patient Social History Tobacco Use?: No Smoking Status: Never a Smoker Smokeless Tobacco Frequency: Never a User Use of E-Cig and/or Vaping dev: No Substance use?: No Alcohol Use?: Yes Alcohol type: Beer Alcohol Frequency: Rarely Pt feels they are or have been: No Immunizations Up To Date Date of Influenza Vaccine: Nov 30, 2017 First/Initial COVID19 Vaccinat: 2020 Second COVID19 Vaccination Reji: 2020 PED Vaccines UTD: No Date of Pneumonia Vaccine: Nov 30, 2017 Current Status Advance Directives: No Communicates: Verbally Primary Language: Jamaican Preferred Spoken Language: Jamaican Is interpretation needed?: No Sensory deficits: Vision impairment, Hearing impairment Additional sensory deficits: ALL ITEMS IN THE ROOM Implanted or Applied Medical D: CPAP Past Medical History Surgeries: Eye Surgery, Joint Replacement, Orthopedic Sleep Apnea Currently Using CPAP: Yes Currently Using BIPAP: No Hypertension Prostate Problems Diverticulosis, Hemorrhoids Arthritis Hearing Impairment: Hard of Hearing, Bilateral Hearing Aide Depression Blood Disorders: No Family Medical History Stroke PAST SURGICAL HISTORY: RIGHT CATARACT SURGERY 12/2021 BILATERAL SHOULDER REPLACEMENTS BILATERAL HIP REPLACEMENTS BILATERAL KNEE REPLACEMENTS GANGLION CYST REMOVED SCREENING COLONOSCOPIES--LAST ONE [address] SMITH. Review of Systems Constitutional: see HPI Physical Exam Physical Exam Vital Signs Vital Signs - First Documented 05/10/22 05:50 O2 Flow Rate 2.00 Capillary Refill : Less Than 3 Seconds Height, Weight, BMI Height: 6'1.00" Weight: 255lbs. 0.0oz. [id number]; 32.63 BMI Method:Stated General Appearance: No Apparent Distress, WD/WN, Obese Respiratory: Lungs Clear, No Accessory Muscle Use, No Respiratory Distress Cardiovascular: No Murmur, Irregularly Irregular Gastrointestinal: Normal Bowel Sounds, Non Tender, Soft Extremity: No Pedal Edema Neurologic/Psychiatric: Alert, Oriented x3, Normal Mood/Affect Results Results/Procedures Labs Laboratory Tests 05/10/22 03:55 05/11/22 04:24 Patient resulted labs reviewed. Assessment/Plan Admission Diagnosis new onset a fib with rvr Admission Status: Inpatient Order (span 2 midnights) Reason for Inpatient Admission: see below Assessment and Plan New onset atrial fibrillation HTN Rate improved with cardizem gtt Cardiology consulted, appreciate Lovenox for stroke ppx Echo ordered Troponin negative x3 NIDDMII Reports diet controlled DM fasting blood sugar 266 though SSI A1c pending BPH Continue home meds when med rec done Fever isolated fever on arrival No evidence of infection (UA negative, CXR negative, COVID/Flu negative) DC Cefepime DVT ppx: Lovenox as above Diagnosis/Problems Diagnosis/Problems (1) Diet-controlled diabetes mellitus (2) Obesity (BMI 30.0-34.9) (3) BPH (benign prostatic hyperplasia) (4) Atrial fibrillation with RVR Status: Acute (5) New onset atrial fibrillation Status: Acute (6) HTN (hypertension) Status: Acute (7) Fever Status: Acute Clinical Quality Measures AMI/AHF: ASA po Prior to arrival: KAT Rabago MD May 10, 2022 12:11
[2022-05-10] MEDS ORDERED: IOHEXOL 350 MG/ML 100 ML (OMNIPAQUE 350) VIAL IV ONE (12:15)
[2022-05-10] MEDS ORDERED: NS 100 ML (IVPB) BAG IV ONE (12:15)
[2022-05-10] MEDS ORDERED: HOLD METFORMIN - RECEIVED CONTRAST 20 ML VIAL IV SCH (12:15)
[2022-05-10] MEDS ORDERED: CATHETER FLUSH 10 ML SYR IV PRN (12:15)
[2022-05-10] MEDS: LORazepam INJ 2 MG/ML (ATIVAN) VIAL IVP PRN ×2 (12:39→12:43)
[2022-05-10] MEDS ORDERED: fentaNYL INJ 100 MCG/2 ML AMP ONE (12:41)
[2022-05-10] MEDS ORDERED: fentaNYL INJ 100 MCG/2 ML AMP IVP ONE (12:45)
--- NOTE | 2022-05-10 13:02 | Diagnostic Imaging Report ---
EXAM: CT ANGIO CHEST/ABD W(R/O AD) 3D reconstructions including MIPs of the angiographic images were performed and reviewed. INDICATION: Chest pain. Hypoxia. COMPARISON: CT chest with IV contrast 06/26/2021. FINDINGS: CTA demonstrates a normal caliber thoracic aorta without dissection. Evaluation of the pulmonary arteries is limited by contrast timing. No large or central pulmonary emboli. No high-grade narrowing of the celiac axis, MEHRAN, bilateral renal and inferior mesenteric arteries. Moderate scattered atherosclerotic calcifications. Cardiomegaly. No pericardial effusion. No mediastinal, hilar or axillary lymphadenopathy. Atelectasis in the left lung base due to a large esophageal hiatal hernia. Lungs are otherwise unremarkable. No pleural effusion or pneumothorax. No acute osseous findings. Hepatic steatosis. Cholelithiasis without secondary findings cholecystitis. The pancreas, spleen, adrenals and kidneys are unremarkable. Simple cyst in the left kidney. No hydronephrosis. No free intraperitoneal air/fluid, lymphadenopathy or evidence of bowel obstruction and visualized upper abdomen. IMPRESSION: 1. No thoracic aortic aneurysm or dissection. 2. No large or central pulmonary emboli. 3. Cardiomegaly. 4. Large esophageal hiatal hernia resulting in mild atelectasis in the left lung base. Lungs are otherwise unremarkable. 5. Cholelithiasis without secondary findings of cholecystitis. Dictated by: Dictated on workstation # [id number]
[2022-05-10] MEDS ORDERED: KETOROLAC 30 MG/ML VIAL IVP PRN (13:15)
[2022-05-10] MEDS: LIDOCAINE 4% (SALONPAS) PATCH TOP SCH (14:33)
[2022-05-10] MEDS: VENlafaxine XR 75 MG (EFFEXOR XR) CAP PO SCH (14:33)
[2022-05-10] MEDS ORDERED: ENOXAPARIN 120 MG/0.8 ML (LOVENOX) SQ SCH (16:00)
[2022-05-10] MEDS: ENOXAPARIN 120 MG/0.8 ML (LOVENOX) SC SCH (18:10)
[2022-05-10] MEDS: meTOprolol TARTRATE 25 MG (LOPRESSOR) TABLET PO SCH (20:15)
[2022-05-10] MEDS: LIDOCAINE PATCH REMOVAL TP SCH (20:19)
[2022-05-10] MEDS ORDERED: APIXABAN 5 MG (ELIQUIS) TABLET PO SCH (21:00)
[2022-05-11] MEDS: VASOPRESSIN INJECTION 20 UNIT in NS (IVPB) 100 ML IV SCH ×2 (04:06→16:00)
[2022-05-11] MEDS: ENOXAPARIN 120 MG/0.8 ML (LOVENOX) SC SCH (04:16)
[2022-05-11] MEDS: dilTIAZem DRIP 125 MG/125 ML DRIP IV SCH (04:18)
[2022-05-11 04:45] LABS: BASOPHILS % (AUTO) 0 % (0-10); EOSINOPHILS # (AUTO) 0.3 10^3/uL (0.0-0.3); EOSINOPHILS % (AUTO) 3 % (0-10); HEMATOCRIT 42 % (40-54); HEMOGLOBIN 14.2 g/dL (13.3-17.7); LYMPHOCYTES # (AUTO) 2.2 10^3/uL (1.0-4.0); LYMPHOCYTES % (AUTO) 22 % (12-44); MEAN CORPUSCULAR HEMOGLOBIN 29 pg (25-34); MEAN CORPUSCULAR HGB CONC 34 g/dL (32-36); MEAN CORPUSCULAR VOLUME 86 fL (80-99); MONOCYTES # (AUTO) 1.1 10^3/uL (0.0-1.0); MONOCYTES % (AUTO) 11 % (0-12); NEUTROPHILS # (AUTO) 6.1 10^3/uL (1.8-7.8); NEUTROPHILS % (AUTO) 63 % (42-75); PLATELET COUNT 272 10^3/uL (130-400); WHITE BLOOD COUNT 9.7 10^3/uL (4.3-11.0)
[2022-05-11 04:57] LABS: ALBUMIN 3.4 GM/DL (3.2-4.5); POTASSIUM 3.7 MMOL/L (3.6-5.0)
[2022-05-11 04:58] LABS: CALCIUM 8.3 MG/DL (8.5-10.1)
[2022-05-11 04:59] LABS: TOTAL PROTEIN 6.4 GM/DL (6.4-8.2)
[2022-05-11 05:01] LABS: BILIRUBIN,TOTAL 0.9 MG/DL (0.1-1.0)
[2022-05-11 05:02] LABS: PHOSPHORUS 3.7 MG/DL (2.3-4.7)
[2022-05-11 05:03] LABS: CREATININE SERUM 0.88 MG/DL (0.60-1.30)
[2022-05-11 05:06] LABS: MAGNESIUM 1.7 MG/DL (1.6-2.4)
[2022-05-11] MEDS: NOREPINEPHRINE 8 MG/250 ML 250 ML IV SCH ×2 (05:12→18:04)
[2022-05-11] MEDS: inSUlin ASPART (NovoLOG) 1 UNIT/0.01 ML (CHARGE PER UNIT) SC SCH ×4 (05:19→20:25)
[2022-05-11] MEDS ORDERED: VENlafaxine XR 75 MG (EFFEXOR XR) CAP PO SCH (07:00)
[2022-05-11] MEDS: ASPIRIN E.C. 81 MG (ECOTRIN) TAB PO SCH (09:07)
[2022-05-11] MEDS: VENlafaxine XR 75 MG (EFFEXOR XR) CAP PO SCH (09:07)
[2022-05-11] MEDS: meTOprolol TARTRATE 25 MG (LOPRESSOR) TABLET PO SCH (09:07)
[2022-05-11] MEDS: LIDOCAINE 4% (SALONPAS) PATCH TOP SCH (09:07)
--- NOTE | 2022-05-11 09:19 | Progress Note - Hospitalist ---
Subjective HPI/CC On Admission Date Seen by Provider: May 11, 2022 Pt is a 70yoCM with past medical history of hypertension and diet-controlled diabetes who presented to the emergency department due to dizziness and elevated heart rate. He reports his symptoms started last night at rest when he developed chest pain that radiated up to his neck. He complained of some shortness of breath as well along with dyspnea on exertion and significant dizziness. He states that he checked his pulse and noticed that it had been high over the past couple of days in the 1 teens and this evening it was in the 140s. EKG confirmed that he was in atrial fibrillation which is new for him with a rate of 148. He was admitted to the ICU on a Cardizem drip. He reports feeling much better since starting on Cardizem but he still has a generalized chest ache with deep breath. Subjective/Events-last exam Pt reports feeling much better today. Chest pain resolved today. Still on 4lpm. Does not wear oxygen at baseline and no history of asthma or COPD. Focused Exam Lactate Level 05/10/22 03:55: Lactic Acid Level 1.82 05/10/22 06:55: Lactic Acid Level 1.51 Time of Focused Exam: 05:00 Objective Exam Vital Signs Vital Signs Date Time Temp Pulse Resp B/P (MAP) Pulse Ox O2 Delivery O2 Flow Rate FiO2 05/11/22 08:00 69 24 124/76 (84) 92 Nasal Cannula 4.00 05/11/22 07:55 36.5 Capillary Refill : Less Than 3 Seconds General Appearance: No Apparent Distress, Obese Respiratory: No Accessory Muscle Use; No Crackles; Decreased Breath Sounds (in bases); No Wheezing; Other (on 4lpm) Cardiovascular: Regular Rate, Rhythm, No Murmur Gastrointestinal: Normal Bowel Sounds, Non Tender, Soft Neurologic/Psychiatric: Alert, Oriented x3 Results/Procedures Lab Laboratory Tests 05/11/22 04:24 Patient resulted labs reviewed. Assessment/Plan Assessment and Plan Assess & Plan/Chief Complaint New onset atrial fibrillation HTN Chest discomfort Converted overnight to sinus rhythm Cardiology consulted, appreciate Lovenox for stroke ppx Echo with preserved EF, no valvular abnormalities, unable to assess diastolic dysfunction Troponin negative x3 Likely pleuritic chest pain- CTA negative for dissection, aneurysm, and PE Incidentally found cholelithiasis but asymptomatic, advised outpatient followup Wean oxygen as able- I titrated down to 3lpm while in room NIDDMII Reports diet controlled DM BS have been quite elevated while here (200s) DM education ordered SSI A1c pending still BPH Continue home meds when med rec done Fever isolated fever on arrival No evidence of infection (UA negative, CXR negative, COVID/Flu negative) Doing well off Cefepime DVT ppx: Lovenox as above Critical Care Critically Ill Patient Diagnosis/Problems Diagnosis/Problems (1) Diet-controlled diabetes mellitus (2) Obesity (BMI 30.0-34.9) (3) BPH (benign prostatic hyperplasia) (4) Atrial fibrillation with RVR Status: Acute (5) New onset atrial fibrillation Status: Acute (6) HTN (hypertension) Status: Acute (7) Fever Status: Acute Clinical Quality Measures AMI/AHF: ASA po Prior to arrival: REI Rabago MD May 11, 2022 09:19
--- NOTE | 2022-05-11 10:16 | Tele-ICU Progress Note ---
Progress Note video rounds completed 71 y/o DM and a fib/rvr Now converted to NSR Being followed by cardiology PE: awake and alert, comfortable in bed Now in NSR PLAN: cardiology following No new issues Time spent in eval 15 minutes Focused Exam Lactate Level 05/10/22 03:55: Lactic Acid Level 1.82 05/10/22 06:55: Lactic Acid Level 1.51 Height, Weight, BMI Height: 6'1.00" Weight: 255lbs. 0.0oz. 115.236665wx; 32.63 BMI Method:Stated Time of Focused Exam: 05:00 Labs Laboratory Tests 05/11/22 04:24 Results Results/Procedures Labs Laboratory Tests 05/10/22 03:55 05/11/22 04:24 Patient resulted labs reviewed. Results Labs Labs Laboratory Tests 05/10/22 10:18: Troponin I < 0.028, Thyroid Stimulating Hormone (TSH) 1.41, Free Thyroxine 0.83 05/10/22 10:39: Glucometer 245H 05/10/22 16:02: Glucometer 236H 05/10/22 20:55: Glucometer 196H 05/11/22 04:24: White Blood Count 9.7, Red Blood Count 4.86, Hemoglobin 14.2, Hematocrit 42, Mean Corpuscular Volume 86, Mean Corpuscular Hemoglobin 29, Mean Corpuscular Hemoglobin Concent 34, Red Cell Distribution Width 12.3, Platelet Count 272, Mean Platelet Volume 11.0, Immature Granulocyte % (Auto) 1, Neutrophils (%) (Auto) 63, Lymphocytes (%) (Auto) 22, Monocytes (%) (Auto) 11, Eosinophils (%) (Auto) 3, Basophils (%) (Auto) 0, Neutrophils # (Auto) 6.1, Lymphocytes # (Auto) 2.2, Monocytes # (Auto) 1.1H, Eosinophils # (Auto) 0.3, Basophils # (Auto) 0.0, Immature Granulocyte # (Auto) 0.1, Sodium Level 138, Potassium Level 3.7, Chloride Level 105, Carbon Dioxide Level 21, Anion Gap 12, Blood Urea Nitrogen 14, Creatinine 0.88, Estimat Glomerular Filtration Rate 91, BUN/Creatinine Ratio 16, Glucose Level 178H, Calcium Level 8.3L, Corrected Calcium 8.8, Phosphorus Level 3.7, Magnesium Level 1.7, Total Bilirubin 0.9, Aspartate Amino Transf (AST/SGOT) 14, Alanine Aminotransferase (ALT/SGPT) 17, Alkaline Phosphatase 69, Total Protein 6.4, Albumin 3.4 Microbiology 05/10/22 MRSA Screen - Final, Complete MRSA not isolated SULEMA BRADFORD MD May 11, 2022 10:16
--- NOTE | 2022-05-11 11:36 | Cardiology Progress Note ---
Subjective Date Seen by Provider: May 11, 2022 Time Seen by Provider: 08:45 Subjective/Events-last exam No acute events overngiht. Pt converted to NSR ~ 1500 yesterday. Chest discomfort resolved. F/u EKG demonstrated NSR with early repolarization. Focused Exam Lactate Level 05/10/22 03:55: Lactic Acid Level 1.82 05/10/22 06:55: Lactic Acid Level 1.51 Time of Focused Exam: 05:00 Objective-Cardiology Exam Last Set of Vital Signs Vital Signs 05/11/22 05/11/22 07:55 10:00 Temp 36.5 Pulse 65 Resp 17 B/P (MAP) 131/104 (112) Pulse Ox 94 O2 Delivery Nasal Cannula O2 Flow Rate 3.00 I&O Intake and Output 05/11/22 00:00 Intake Total 3275 ml Output Total 325 ml Balance 2950 ml Intake Oral 750 ml IV Total 2175 ml Tube Feeding 350 ml Output Urine Total 325 ml # Voids 1 Daily Weight Change No Other physical findings GENERAL: He is in no acute distress. He is actually resting comfortably in the bed. NECK: Soft and supple. No cervical lymphadenopathy or thyromegaly. LUNGS: Clear to auscultation bilaterally. No wheezes, rales or rhonchi. There is no coarse breath sounds bilaterally, however. HEART: RRR, not tachycardic. No murmurs, gallops or rubs are appreciated. ABDOMEN: Positive bowel sounds, soft, mildly distended, nontender. No hepatosplenomegaly. EXTREMITIES: Warm and well perfused. He has no cyanosis, clubbing or edema. SKIN: No lesions, rashes or ecchymoses are noted. Results Lab Laboratory Tests 05/11/22 04:24 A/P-Cardiology Assessment/Plan 71-year-old gentleman with the above-mentioned medical problems who presents for evaluation of chest discomfort and tachycardia. ## AF with RVR: He has converted to NSR. On dilt gtt at 15 mg per hour. CHADS-VASc score is 2 for age and hypertension, increasing his stroke risk and need for anticoagulation. TSH and FT4 within normal limites. ECHO with normal cardiac function. TnI negative x III - cont Eliquis 5 mg p.o. b.i.d. - Transition dilt gtt to Dilt CD 180mg po BID and transition metop tartate to Toprol XL 25mg po QD ## Hypertension. SBP 90-130s - Continue hydrochlorothiazide. - Discontinue fosinopril and Norvasc on home meds for now- Dilt and Toprol will take the place of these meds. ## Depression - cont Effexor 75 mg p.o. daily. ## DISPO: - ok for discharge this afternoon if he tolerates transition to po meds well and can ambulate in halls without issue - f/u with cards in 1-2 weeks as outpt. JUAN KAT MD May 11, 2022 11:36
[2022-05-11] MEDS: APIXABAN 5 MG (ELIQUIS) TABLET PO SCH ×2 (12:04→20:25)
[2022-05-11] MEDS ORDERED: FUROSEMIDE 40 MG/4 ML INJ (LASIX) IVP NR (14:00)
[2022-05-11] MEDS: NS IV 1000 ML 1,000 ML IV SCH (15:00)
[2022-05-11] MEDS ORDERED: AMIODARONE (Pyxis Kit Only) BOLUS 150 MG/3 ML IV ONE (17:58)
[2022-05-11] MEDS ORDERED: AMIODARONE FOR BOLUS 150 MG in NS (IVPB) 100 ML IV ONE (18:00)
[2022-05-11] MEDS ORDERED: NS (IVPB) 100 ML ONE (18:00)
[2022-05-11] MEDS: LIDOCAINE PATCH REMOVAL TP SCH (20:20)
--- NOTE | 2022-05-12 00:29 | Progress Note ---
Standard Progress Note Progress Notes/Assess & Plan Date Seen by a Provider: May 12, 2022 Time Seen by a Provider: 00:28 Progress/Assessment & Plan called for temp 100.6, LFT's ok, will give TYlenol SULEMA JIMENEZ MD May 12, 2022 00:28
[2022-05-12] MEDS ORDERED: ACETAMINOPHEN 500 MG TAB (TYLENOL) PO PRN (00:30)
[2022-05-12] MEDS: VASOPRESSIN INJECTION 20 UNIT in NS (IVPB) 100 ML IV SCH ×2 (00:35→12:03)
[2022-05-12 04:00] LABS: BASOPHILS % (AUTO) 0 % (0-10); EOSINOPHILS # (AUTO) 0.3 10^3/uL (0.0-0.3); EOSINOPHILS % (AUTO) 2 % (0-10); HEMATOCRIT 44 % (40-54); HEMOGLOBIN 15.1 g/dL (13.3-17.7); LYMPHOCYTES # (AUTO) 2.5 10^3/uL (1.0-4.0); LYMPHOCYTES % (AUTO) 24 % (12-44); MEAN CORPUSCULAR HEMOGLOBIN 29 pg (25-34); MEAN CORPUSCULAR HGB CONC 34 g/dL (32-36); MEAN CORPUSCULAR VOLUME 85 fL (80-99); MEAN PLATELET VOLUME 10.8 fL (9.0-12.2); MONOCYTES # (AUTO) 1.2 10^3/uL (0.0-1.0); MONOCYTES % (AUTO) 11 % (0-12); NEUTROPHILS # (AUTO) 6.5 10^3/uL (1.8-7.8); NEUTROPHILS % (AUTO) 62 % (42-75); PLATELET COUNT 259 10^3/uL (130-400); WHITE BLOOD COUNT 10.5 10^3/uL (4.3-11.0)
[2022-05-12 04:19] LABS: ALBUMIN 3.6 GM/DL (3.2-4.5); POTASSIUM 3.7 MMOL/L (3.6-5.0)
[2022-05-12 04:20] LABS: CALCIUM 8.6 MG/DL (8.5-10.1)
[2022-05-12 04:22] LABS: TOTAL PROTEIN 6.9 GM/DL (6.4-8.2)
[2022-05-12 04:23] LABS: BILIRUBIN,TOTAL 0.8 MG/DL (0.1-1.0)
[2022-05-12 04:25] LABS: CREATININE SERUM 1.27 MG/DL (0.60-1.30); PHOSPHORUS 3.7 MG/DL (2.3-4.7)
[2022-05-12 04:28] LABS: MAGNESIUM 1.8 MG/DL (1.6-2.4)
[2022-05-12] MEDS: NOREPINEPHRINE 8 MG/250 ML 250 ML IV SCH ×2 (04:52→17:45)
[2022-05-12] MEDS: inSUlin ASPART (NovoLOG) 1 UNIT/0.01 ML (CHARGE PER UNIT) SC SCH ×4 (05:15→21:01)
[2022-05-12] MEDS: LIDOCAINE 4% (SALONPAS) PATCH TOP SCH (08:47)
[2022-05-12] MEDS: meTOprolol TARTRATE 25 MG (LOPRESSOR) TABLET PO SCH ×2 (08:47→18:30)
[2022-05-12] MEDS: APIXABAN 5 MG (ELIQUIS) TABLET PO SCH ×2 (08:47→21:01)
[2022-05-12] MEDS: VENlafaxine XR 75 MG (EFFEXOR XR) CAP PO SCH (08:47)
[2022-05-12] MEDS ORDERED: FUROSEMIDE 40 MG/4 ML INJ (LASIX) IVP SCH (09:00)
--- NOTE | 2022-05-12 09:26 | Diagnostic Imaging Report ---
EXAMINATION: Chest 2 view HISTORY: Dyspnea. COMPARISON: 05/10/2022. FINDINGS: The lung volumes are normal. Bibasilar opacities are seen. No large pleural effusion or pneumothorax is seen. The cardiomediastinal silhouette is stable in size. There is calcified aortic atherosclerotic plaque. Large hiatal hernia is seen extending into the left lung base. No acute osseous abnormality is seen. Bilateral shoulder arthroplasties are noted. IMPRESSION: 1. Large hiatal hernia extending into the left hemithorax. 2. Bibasilar opacities likely representing atelectasis. Dictated by: Dictated on workstation # [id number]
[2022-05-12] MEDS: NS IV 1000 ML 1,000 ML IV SCH (09:31)
[2022-05-12] MEDS ORDERED: AMIODARONE FOR BOLUS 150 MG in NS (IVPB) 100 ML IV ONE (10:00)
--- NOTE | 2022-05-12 10:09 | Cardiology Progress Note ---
Subjective Date Seen by Provider: May 12, 2022 Time Seen by Provider: 09:15 Subjective/Events-last exam No acute events overnight. Converted to NSR two days ago, then back to AFyesterday. HRs controlled (70-90s).. Feels fine Focused Exam Lactate Level 05/10/22 03:55: Lactic Acid Level 1.82 05/10/22 06:55: Lactic Acid Level 1.51 Time of Focused Exam: 05:00 Objective-Cardiology Exam Last Set of Vital Signs Vital Signs 05/12/22 05/12/22 08:00 09:00 Temp 35.7 Pulse 77 Resp 18 B/P (MAP) 138/80 (99) Pulse Ox 93 O2 Delivery Nasal Cannula O2 Flow Rate 2.00 I&O Intake and Output 05/11/22 23:59 Intake Total 2700 ml Output Total 4100 ml Balance -1400 ml Intake Oral 2700 ml Output Urine Total 4100 ml Other physical findings GENERAL: He is in no acute distress. He is actually resting comfortably in the bed. NECK: Soft and supple. No cervical lymphadenopathy or thyromegaly. LUNGS: Clear to auscultation bilaterally. No wheezes, rales or rhonchi. There is no coarse breath sounds bilaterally, however. HEART: irreg, irreg not tachycardic. No murmurs, gallops or rubs are appreciated. ABDOMEN: Positive bowel sounds, soft, mildly distended, nontender. No hepatosplenomegaly. EXTREMITIES: Warm and well perfused. He has no cyanosis, clubbing or edema. SKIN: No lesions, rashes or ecchymoses are noted. Results Lab Laboratory Tests 05/12/22 03:52 A/P-Cardiology Assessment/Plan 71-year-old gentleman with the above-mentioned medical problems who presents for evaluation of chest discomfort and tachycardia. ## AF with RVR: He has converted to NSR two days ago but went back into AF yesterday. HRs controlled 60-90s. Currently, on dilt po and metop po. TSH and FT4 within normal limits. ECHO with normal cardiac function. TnI negative x III - cont dilt 90mg po Q6H - cont metop 25 q8h - start amiodraone bolus + gtt, in an attempt to convert , but it is clear that hte pt has a predilection to "pop back and fort." - On dilt gtt at 15 mg per hour. CHADS-VASc score is 2 for age and hypertension, increasing his stroke risk and need for anticoagulation. a1c still pending. - cont Eliquis 5 mg p.o. b.i.d. - Transition to long acting formulations in the AM. ## Hypertension. SBP 90-130s - Continue hydrochlorothiazide. - Discontinue fosinopril and Norvasc on home meds for now- Dilt and Toprol will take the place of these meds. ## Depression - cont Effexor 75 mg p.o. daily. ## DISPO: - ok for discharge tomorrow after amio gtt for 24hrs. - f/u with cards in 1-2 weeks as outpt. JUAN KAT MD May 12, 2022 10:09
[2022-05-12 10:49] VITALS: BP 139/84
[2022-05-12] MEDS: AMIODARONE INJECTION 450 MG in NORMAL SALINE 250 ML IV SCH ×2 (11:11→18:59)
--- NOTE | 2022-05-12 11:30 | Tele-ICU Progress Note ---
Subjective Date Seen by a Provider: May 12, 2022 Time Seen by a Provider: 11:29 Subjective/Events-last exam (Tele-ICU Physician , Progress Note ) Service provided via interactive audio and video telecommunications E-CARE system to a patient admitted to ICU bed in [facility]. Patient is seen today due to persistent need of ICU care Available chart/ vitals / labs / Images reviewed Video assessment done using teleICU camera, rest of exam as per RN Discussed with RN Events overnight : Afebrile hemodynamically stable Respiratory - ra I/O = neg Drips: Pressors- no Hospital course: A/P A fib RVR, ( no po on CT ch3/110 - amio gtt 05/12 - AC eliquis COPD? - not on any Tx DM ? ISS Lines : , (Central Line Necessity Reviewed) Nicholson: OG: Nutrition: Analgesia: Anxiety/ delirium VTE Prophylaxis: eliquis Stress Ulcer Prophylaxis: Plans in collaboration with bedside consultants and IM MDs. Discussed with RN to reach out if any questions or concerns A total of 10 minutes of critical care time was devoted to this patient today, required to treat and/or prevent further deterioration of critical care condition ( as above ) . I am remotely monitoring this patient from another state. I am unable to do the bedside exam, and history/physical and pertinent information is taken from other notes in the computer and bedside staff. Sepsis Event Evaluation Height, Weight, BMI Height: 6'1.00" Weight: 255lbs. 0.0oz. 115.297438xb; 32.63 BMI Method:Stated Focused Exam Lactate Level 05/10/22 03:55: Lactic Acid Level 1.82 05/10/22 06:55: Lactic Acid Level 1.51 Time of Focused Exam: 05:00 Exam Exam Patient acknowledged, consented, and participated in this virtual visit which was conducted using real time audio/video Vital Signs Date Time Temp Pulse Resp B/P (MAP) Pulse Ox O2 Delivery O2 Flow Rate FiO2 05/12/22 10:49 76 139/84 05/12/22 10:00 79 23 139/84 (102) 92 Room Air 05/12/22 09:05 Room Air 05/12/22 09:00 77 18 93 Nasal Cannula 2.00 05/12/22 08:35 95 Room Air 05/12/22 08:00 35.7 05/12/22 08:00 96 29 138/80 (99) 97 Nasal Cannula 2.00 05/12/22 07:41 96 05/12/22 07:36 94 Nasal Cannula 2.00 05/12/22 07:00 82 12 133/72 (92) 95 Nasal Cannula 2.00 05/12/22 06:00 85 11 129/90 (103) 94 Nasal Cannula 2.00 05/12/22 05:00 74 23 127/86 (95) 91 Nasal Cannula 2.00 05/12/22 04:00 96 Room Air 05/12/22 04:00 87 25 111/81 (91) 91 Nasal Cannula 2.00 05/12/22 03:54 37.1 05/12/22 03:00 79 21 125/76 (92) 93 Nasal Cannula 2.00 05/12/22 02:00 83 18 118/77 (91) 91 Nasal Cannula 2.00 05/12/22 01:12 36.4 05/12/22 01:00 82 05/12/22 01:00 82 24 125/86 (99) 90 Nasal Cannula 2.00 05/12/22 00:00 93 12 117/94 (102) 94 Nasal Cannula 2.00 05/11/22 23:59 96 Room Air 05/11/22 23:00 75 15 107/70 (87) 87 Room Air 05/11/22 22:00 90 11 115/62 (83) 87 Room Air 05/11/22 21:00 100 28 136/73 (91) Room Air 05/11/22 20:00 96 39 131/76 (93) 88 Room Air 05/11/22 20:00 96 Room Air 05/11/22 19:40 37.8 05/11/22 19:00 101 36 135/87 (96) Room Air 05/11/22 19:00 90 05/11/22 18:12 115 124/75 05/11/22 18:05 115 124/75 05/11/22 18:00 88 16 124/75 (107) Room Air 05/11/22 17:02 94 Room Air 05/11/22 17:00 105 22 Nasal Cannula 1.00 05/11/22 16:00 86 23 129/78 (95) 91 Nasal Cannula 1.00 05/11/22 16:00 95 Room Air 05/11/22 15:00 79 25 136/79 (104) 92 Nasal Cannula 1.00 05/11/22 14:00 80 27 112/74 (87) 90 Nasal Cannula 1.00 05/11/22 13:30 Nasal Cannula 1.00 05/11/22 13:00 76 21 135/62 (113) 92 Room Air 05/11/22 13:00 75 05/11/22 12:30 Room Air 05/11/22 12:00 70 136/92 (116) 21 Nasal Cannula 3.00 05/11/22 12:00 90 Room Air 05/11/22 11:55 36.6 05/11/22 11:31 91 Room Air I & O 05/12/22 07:00 Intake Total 2600 ml Output Total 3725 ml Balance -1125 ml Height & Weight Height: 6'1.00" Weight: 255lbs. 0.0oz. 115.293045uo; 32.63 BMI Method:Stated General Appearance: No Apparent Distress, WD/WN, Obese HEENT: PERRL/EOMI Neck: Full Range of Motion, Normal Inspection, Non Tender, Supple; No Carotid Bruit, No JVD Respiratory: Lungs Clear, No Accessory Muscle Use, No Respiratory Distress Cardiovascular: No Murmur, Irregularly Irregular Capillary Refill: Less Than 3 Seconds Extremity: No Pedal Edema Neurologic/Psychiatric: Alert, Oriented x3, Normal Mood/Affect Skin: Normal Color, Warm/Dry (VERY WARM); No Rash Results Lab Laboratory Tests 05/11/22 04:24 05/12/22 03:52 Assessment/Plan Assessment/Plan 1 MELISSA SANCHEZ MD May 12, 2022 11:30
[2022-05-12] MEDS ORDERED: KCL 20 MEQ TAB (K-DUR) PO NR (13:00)
[2022-05-12] MEDS ORDERED: NS IV 500 ML 500 ML IV PRN (13:00)
[2022-05-12] MEDS ORDERED: CATHETER FLUSH 10 ML SYR IVP PRN (13:45)
[2022-05-12] MEDS ORDERED: VNL75T PO (13:58)
[2022-05-12] MEDS ORDERED: TOLT4CAP26 PO (13:58)
--- NOTE | 2022-05-12 18:17 | Progress Note - Hospitalist ---
Subjective HPI/CC On Admission Date Seen by Provider: May 12, 2022 Time Seen by Provider: 10:00 Pt is a 70yoCM with past medical history of hypertension and diet-controlled diabetes who presented to the emergency department due to dizziness and elevated heart rate. He reports his symptoms started last night at rest when he develop ed chest pain that radiated up to his neck. He complained of some shortness of breath as well along with dyspnea on exertion and significant dizziness. He states that he checked his pulse and noticed that it had been high over the past couple of days in the 1 teens and this evening it was in the 140s. EKG confirmed that he was in atrial fibrillation which is new for him with a rate of 148. He was admitted to the ICU on a Cardizem drip. He reports feeling much better since starting on Cardizem but he still has a generalized chest ache with deep breath. Subjective/Events-last exam He is feeling well. He denies chest pain and palpitations. Focused Exam Lactate Level 05/10/22 03:55: Lactic Acid Level 1.82 05/10/22 06:55: Lactic Acid Level 1.51 Time of Focused Exam: 05:00 Objective Exam Vital Signs Vital Signs Date Time Temp Pulse Resp B/P (MAP) Pulse Ox O2 Delivery O2 Flow Rate FiO2 05/12/22 17:00 75 14 129/93 (105) 91 Room Air 05/12/22 16:02 36.0 05/12/22 09:00 2.00 Capillary Refill : Less Than 3 Seconds General Appearance: No Apparent Distress, Obese Respiratory: Lungs Clear, No Respiratory Distress Cardiovascular: No Murmur, Irregularly Irregular Gastrointestinal: Normal Bowel Sounds, Soft Extremity: Normal Inspection, No Pedal Edema Neurologic/Psychiatric: Alert, Normal Mood/Affect Skin: Normal Color, Warm/Dry Results/Procedures Lab Laboratory Tests 05/12/22 03:52 Patient resulted labs reviewed. Assessment/Plan Assessment and Plan Assess & Plan/Chief Complaint New onset atrial fibrillation HTN Chest discomfort Cardiology following Echo with preserved EF, no valvular abnormalities, unable to assess diastolic dysfunction Troponin negative x3 Cardizem Amiodarone gtt Metoprolol Eliquis HCTZ T2DM Reports diet controlled DM DM education ordered SSI A1c 9.8% Begin Metformin and Glimepiride Overactive bladder Continue home meds Critical Care Critically Ill Patient Diagnosis/Problems Diagnosis/Problems (1) Atrial fibrillation with RVR Status: Acute (2) New onset atrial fibrillation Status: Acute (3) T2DM (type 2 diabetes mellitus) Status: Acute 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
[2022-05-12] MEDS ORDERED: TOLTERODINE LA 2 MG (DETROL LA) CAP PO SCH (21:00)
[2022-05-12] MEDS: LIDOCAINE PATCH REMOVAL TP SCH (21:02)
[2022-05-13] MEDS: meTOprolol TARTRATE 25 MG (LOPRESSOR) TABLET PO SCH ×2 (00:36→09:40)
[2022-05-13] MEDS: VASOPRESSIN INJECTION 20 UNIT in NS (IVPB) 100 ML IV SCH ×2 (01:12→12:30)
[2022-05-13 04:02] LABS: BASOPHILS % (AUTO) 0 % (0-10); EOSINOPHILS # (AUTO) 0.5 10^3/uL (0.0-0.3); EOSINOPHILS % (AUTO) 6 % (0-10); HEMATOCRIT 46 % (40-54); HEMOGLOBIN 15.9 g/dL (13.3-17.7); LYMPHOCYTES % (AUTO) 21 % (12-44); MEAN CORPUSCULAR HEMOGLOBIN 29 pg (25-34); MEAN CORPUSCULAR HGB CONC 35 g/dL (32-36); MEAN CORPUSCULAR VOLUME 85 fL (80-99); MEAN PLATELET VOLUME 10.9 fL (9.0-12.2); MONOCYTES % (AUTO) 10 % (0-12); NEUTROPHILS # (AUTO) 5.9 10^3/uL (1.8-7.8); NEUTROPHILS % (AUTO) 62 % (42-75); PLATELET COUNT 281 10^3/uL (130-400); WHITE BLOOD COUNT 9.6 10^3/uL (4.3-11.0)
[2022-05-13 04:12] LABS: ALBUMIN 3.7 GM/DL (3.2-4.5); POTASSIUM 3.4 MMOL/L (3.6-5.0)
[2022-05-13 04:13] LABS: CALCIUM 8.9 MG/DL (8.5-10.1)
[2022-05-13 04:14] LABS: TOTAL PROTEIN 7.1 GM/DL (6.4-8.2)
[2022-05-13 04:16] LABS: BILIRUBIN,TOTAL 0.8 MG/DL (0.1-1.0)
[2022-05-13 04:17] LABS: PHOSPHORUS 3.5 MG/DL (2.3-4.7)
[2022-05-13 04:18] LABS: CREATININE SERUM 1.06 MG/DL (0.60-1.30)
[2022-05-13 04:21] LABS: MAGNESIUM 1.9 MG/DL (1.6-2.4)
[2022-05-13] MEDS: NS IV 1000 ML 1,000 ML IV SCH (05:54)
[2022-05-13] MEDS: NOREPINEPHRINE 8 MG/250 ML 250 ML IV SCH (05:54)
[2022-05-13] MEDS ORDERED: MAGNESIUM 1 GM/100 ML IVPB 100 ML IV SCH (06:00)
[2022-05-13] MEDS ORDERED: KCL 20 MEQ TAB (K-DUR) PO SCH (06:00)
[2022-05-13] MEDS ORDERED: POTASSIUM CL 10MEQ/50ML IVPB 50 ML IV SCH (06:00)
[2022-05-13] MEDS: inSUlin ASPART (NovoLOG) 1 UNIT/0.01 ML (CHARGE PER UNIT) SC SCH ×2 (06:13→12:55)
[2022-05-13] MEDS: VENlafaxine XR 75 MG (EFFEXOR XR) CAP PO SCH (06:14)
[2022-05-13] MEDS ORDERED: GLIMEPIRIDE 1 MG (AMARYL) TAB PO SCH (06:30)
[2022-05-13] MEDS ORDERED: KCL 20 MEQ TAB (K-DUR) PO ONE (06:30)
[2022-05-13] MEDS ORDERED: metFORMIN 500 MG (GLUCOPHAGE) TAB PO SCH (07:00)
--- NOTE | 2022-05-13 09:23 | Cardiology Progress Note ---
Subjective Date Seen by Provider: May 13, 2022 Time Seen by Provider: 09:00 Subjective/Events-last exam No acute issues overnight. Converted back to NSR on amio gtt. Focused Exam Time of Focused Exam: 05:00 Objective-Cardiology Exam Last Set of Vital Signs Vital Signs 05/12/22 05/13/22 05/13/22 05/13/22 09:00 08:00 08:05 09:00 Temp 35.8 Pulse 68 Resp 19 B/P (MAP) 137/88 (104) Pulse Ox 95 O2 Delivery Room Air O2 Flow Rate 2.00 I&O Intake and Output 05/13/22 00:00 Intake Total 2452 ml Output Total 1725 ml Balance 727 ml Intake Oral 2090 ml IV Total 362 ml Output Urine Total 1725 ml # Voids 4 # Bowel Movements 2 Other physical findings GENERAL: He is in no acute distress. He is actually resting comfortably in the bed. NECK: Soft and supple. No cervical lymphadenopathy or thyromegaly. LUNGS: Clear to auscultation bilaterally. No wheezes, rales or rhonchi. There is no coarse breath sounds bilaterally, however. HEART: irreg, irreg not tachycardic. No murmurs, gallops or rubs are appreciated. ABDOMEN: Positive bowel sounds, soft, mildly distended, nontender. No hepatosplenomegaly. EXTREMITIES: Warm and well perfused. He has no cyanosis, clubbing or edema. SKIN: No lesions, rashes or ecchymoses are noted. Results Lab Laboratory Tests 05/13/22 03:53 A/P-Cardiology Assessment/Plan 71-year-old gentleman with the above-mentioned medical problems who presents for evaluation of chest discomfort and tachycardia. ## AF with RVR: He has converted to NSR two days ago but went back into AF ye . HRs controlled 60-90s. Currently, on dilt po and metop po. TSH and FT4 within normal limits. ECHO with normal cardiac function. TnI negative x III. CHADS-VASc score is 3 for age, diabetes and hypertension, increasing his stroke risk and need for anticoagulation. - transition to metop 37.5mg po BID - transition to amiodarone po taper (400mg po TID x 7 days, 400mg po BID x 7 days, 400mg po QD x 7 days, then 200mg po QD thereafter) - d/c dilitazem d/c amiodarone gtt 30 mins after amio po given - cont Eliquis 5 mg p.o. b.i.d. ## Diabetes ( A1C IS 9.8) - PLAN PER HOSPITALIST - cont metformin ## Hypertension. SBP 90-130s - Continue hydrochlorothiazide. - Discontinue fosinopril and Norvasc on home meds for now- ## Depression - cont Effexor 75 mg p.o. daily. ## DISPO: - ok for discharge today - f/u with cards in 1-2 weeks as outpt. ## hypokalemia K of 3.4 supp K to keep K > 4 JUAN KAT MD May 13, 2022 09:23
[2022-05-13] MEDS: APIXABAN 5 MG (ELIQUIS) TABLET PO SCH (09:40)
[2022-05-13] MEDS: MAGNESIUM 1 GM/100 ML IVPB 100 ML IV SCH ×2 (09:40→09:43)
[2022-05-13] MEDS: LIDOCAINE 4% (SALONPAS) PATCH TOP SCH (09:41)
[2022-05-13] MEDS ORDERED: AMIODARONE 200 MG (CORDARONE) TAB PO ONE (09:45)
[2022-05-13] MEDS ORDERED: APIX5TAB PO (12:36)
[2022-05-13] MEDS ORDERED: METF-397 PO (12:36)
[2022-05-13] MEDS ORDERED: AMIO200T65 PO (12:36)
[2022-05-13] MEDS ORDERED: AMIO400T5 PO (12:36)
[2022-05-13] MEDS ORDERED: GLMP1T PO (12:36)
[2022-05-13] MEDS ORDERED: METO-333 PO (12:36)
[2022-05-13] MEDS ORDERED: BLOO1EAC87 MC (12:44)
[2022-05-13] MEDS ORDERED: [UNRECOGNIZED DRUG - CODE] MC (12:44)
--- NOTE | 2022-05-13 15:48 | Discharge Summary ---
Discharge Summary Hospital Course Was the Problem List Reviewed?: Yes Problems/Dx: (1) Atrial fibrillation with RVR Status: Acute (2) New onset atrial fibrillation Status: Acute (3) T2DM (type 2 diabetes mellitus) Status: Acute Qualifiers: Qualified Codes: E11.65 - Type 2 diabetes mellitus with hyperglycemia (4) HTN (hypertension) Status: Acute (5) BPH (benign prostatic hyperplasia) Status: Chronic Hospital Course Date of Admission: May 10, 2022 at 05:57 Admission Diagnosis : New onset AFib with RVR Family Physician/Provider: Karan Masters MD Date of Discharge: 05/13/22 Discharge Diagnosis: New onset AFib with RVR Hospital Course: Justin Barcenas is a 71 year old male with PMH HTN, T2DM, obesity, who was admitted with new onset AFib with RVR. Cardiology was consulted and assisted with his care. He was treated with IV Cardizem and then IV Amiodarone. He was transitioned to an oral Amiodarone taper. He was started on Metoprolol. His rate was well controlled. He was started on Eliquis for stroke prophylaxis. He was started on Metformin and Glimepiride due to uncontrolled diabetes. His A1C was 9.8%. Diabetes education was consulted. He was set up with diabetic testing supplies. He was discharged home in stable condition. He should follow up with Dr. Masters in about a week. He should follow up with Cardiology in about two weeks. Labs and Pending Lab Test: Laboratory Tests 05/12/22 20:56: Glucometer 231H 05/13/22 03:53: White Blood Count 9.6, Red Blood Count 5.41, Hemoglobin 15.9, Hematocrit 46, Mean Corpuscular Volume 85, Mean Corpuscular Hemoglobin 29, Mean Corpuscular Hemoglobin Concent 35, Red Cell Distribution Width 11.9, Platelet Count 281, Mean Platelet Volume 10.9, Immature Granulocyte % (Auto) 1, Neutrophils (%) (Auto) 62, Lymphocytes (%) (Auto) 21, Monocytes (%) (Auto) 10, Eosinophils (%) (Auto) 6, Basophils (%) (Auto) 0, Neutrophils # (Auto) 5.9, Lymphocytes # (Auto) 2.0, Monocytes # (Auto) 1.0, Eosinophils # (Auto) 0.5H, Basophils # (Auto) 0.0, Immature Granulocyte # (Auto) 0.1, Sodium Level 137, Potassium Level 3.4L, Chloride Level 101, Carbon Dioxide Level 26, Anion Gap 10, Blood Urea Nitrogen 15, Creatinine 1.06, Estimat Glomerular Filtration Rate 75, BUN/Creatinine Ratio 14, Glucose Level 175H, Calcium Level 8.9, Corrected Calcium 9.1, Phosphorus Level 3.5, Magnesium Level 1.9, Total Bilirubin 0.8, Aspartate Amino Transf (AST/SGOT) 20, Alanine Aminotransferase (ALT/SGPT) 17, Alkaline Phosphatase 65, Total Protein 7.1, Albumin 3.7 05/13/22 10:38: Glucometer 206H Microbiology 05/10/22 Blood Culture - Preliminary, Resulted No growth 05/10/22 Urine Culture - Final, Complete NO GROWTH 05/10/22 MRSA Screen - Final, Complete MRSA not isolated Home Meds Active Lancets 1 Each Each Each DAILY PRN Blood Glucose Meter (Blood-Glucose Meter) 1 Each Each Each DAILY PRN Amaryl (Glimepiride) 1 Mg Tab 1 Mg PO DAILY@0630 30 Days Metformin HCl 500 Mg Tablet 500 Mg PO DAILY@07 30 Days Amiodarone HCl 400 Mg Tablet 400 Mg PO TID 21 Days Amiodarone HCl 200 Mg Tablet 200 Mg PO DAILY 30 Days Metoprolol Tartrate 25 Mg Tablet 37.5 Mg PO BID 30 Days Eliquis (Apixaban) 5 Mg Tablet 5 Mg PO BID 30 Days Reported Venlafaxine HCl 75 Mg Tab 75 Mg PO BID Tolterodine Tartrate ER (Tolterodine Tartrate) 4 Mg Cap.er.24h 4 Mg PO HS Hydrochlorothiazide 25 Mg Tablet 25 Mg PO DAILY Assessment/Pt Instructions See instructions Discharge Planning: >30 minutes discharge planning Discharge Instructions Discharge Diet: Low Sodium Diet, ADA Diet Activity as Tolerated: Yes Consultations Cardiology, TeleICU Discharge Physical Examination Vital Signs Vital Signs Date Time Temp Pulse Resp B/P (MAP) Pulse Ox O2 Delivery O2 Flow Rate FiO2 05/13/22 13:00 66 96 Room Air 05/13/22 12:00 36.0 05/13/22 08:00 19 05/12/22 09:00 2.00 General Appearance: No Apparent Distress, Obese Respiratory: Lungs Clear, No Respiratory Distress Cardiovascular: Regular Rate, Rhythm, No Murmur Gastrointestinal: Normal Bowel Sounds, Soft Extremity: Normal Inspection, No Pedal Edema Skin: Normal Color, Warm/Dry Neurologic/Psychiatric: Alert, Normal Mood/Affect Allergies: Coded Allergies: morphine (Unverified Allergy, Mild, 11/16/10) Copy Copies To 1: KARAN MASTERS MD Copies To 2: JERED DALE MD Discharge Summary Date of Admission May 10, 2022 at 05:57 Date of Discharge May 13, 2022 at 13:20 Discharge Date: May 13, 2022 Discharge Time: 13:20 Admission Diagnosis new onset a fib with rvr Consults/Procedures Consulations Cardiology, TeleICU Discharge Diagnosis New onset atrial fibrillation HTN T2DM Overactive bladder Obesity (1) Atrial fibrillation with RVR Status: Acute (2) New onset atrial fibrillation Status: Acute (3) T2DM (type 2 diabetes mellitus) Status: Acute Qualifiers: Qualified Codes: E11.65 - Type 2 diabetes mellitus with hyperglycemia (4) HTN (hypertension) Status: Acute (5) BPH (benign prostatic hyperplasia) Status: Chronic Clinical Quality Measures AMI/AHF: ASA po Prior to arrival: BESSIE Zarate MD May 13, 2022 15:47
--- NOTE | 2022-05-13 21:39 | Physician Query Clarification ---
Physician Query-General Query to Physician: The medical record reflects the following clinical evidence: Clinical Indicators: documentation of shortness of air at rest on admission, Requiring 02 for several days as high as 4L, 02 sat as low as 90% on 4L (P/F=165) on day of admission, RR on admission was 20 increased to 29 has been mostly 20 and above since admission Risk Factor(s): At. Fib with RVR, Chest discomfort, Fever Treatment: Supplemental 02 up to 4 L for greater than 48 hours, Rate control with Cardizem, Lasix IV , Close respiratory monitoring Acute respiratory failure with hypoxia, present on admission resolved Other explanation of clinical findings Unable to determine (no explanation for clinical findings) Please clarify and document your clinical opinion in the progress notes and discharge summary including the definitive and/or presumptive diagnosis, (suspected or probable), related to the above clinical findings. Please include clinical findings supporting your diagnosis. Marlin Avalos, MSN, RN Clinical Pier Runner [phone] [email or web address] PHYSICIAN RESPONSE: Based on the clinical findings in the record, please respond to the query above on this document as an addendum. Physician Response: Physician Response Acute respiratory failure with hypoxia, present on admission resolved If you have questions please contact: Enterprise Resource Analyst: Ext: Thank you for your time and cooperation. Clinical Pier Runner/Enterprise Resource Analyst This is a permanent part of the medical record Diagnosis/Problems Diagnosis/Problems (1) Acute respiratory failure with hypoxia Status: Resolved Resolution Date/Time: 05/12/22 @ 18:54 MARLIN AVALOS May 13, 2022 21:39 BESSIE FLOREZ MD May 17, 2022 18:54
== END 2022-05-13 13:20 | disposition home or self-care (01) | DRG 308 ==
LOC: EDUNIT# 03:45 → ER 03:47 → ICU 05:57
PROVIDERS: ADMIT Family Medicine; ATTEND Internal Medicine
DX: I48.91 Unspecified atrial fibrillation (principal); J96.01 Acute respiratory failure with hypoxia; I10 Essential (primary) hypertension; F32.A Depression, unspecified; E87.6 Hypokalemia; E11.65 Type 2 diabetes mellitus with hyperglycemia; G47.30 Sleep apnea, unspecified; N40.1 Benign prostatic hyperplasia with lower urinary tract symptoms; N32.81 Overactive bladder; E66.9 Obesity, unspecified; K57.90 Diverticulosis of intestine, part unspecified, without perforation or abscess without bleeding; M19.91 Primary osteoarthritis, unspecified site; H91.93 Unspecified hearing loss, bilateral; Z68.31 Body mass index [BMI] 31.0-31.9, adult; Z79.84 Long term (current) use of oral hypoglycemic drugs; Z88.5 Allergy status to narcotic agent; Z96.612 Presence of left artificial shoulder joint; Z96.611 Presence of right artificial shoulder joint; Z96.643 Presence of artificial hip joint, bilateral; Z96.653 Presence of artificial knee joint, bilateral; Z97.4 Presence of external hearing-aid
CPT/HCPCS: 36415; 71045; 71046; 71275; 74175; 80053; 80061; 81000; 82010; 82150; 82550; 82553; 82947; 83036; 83605; 83690; 83735; 83874; 83880; 84100; 84439; 84443; 84484; 85025; 85379; 85610; 85652; 85730; 86141; 87040; 87081; 87088; 87636; 93005; 93041; 93306; 94664; 94760

== ENCOUNTER 2022-10-03 11:58 | Outpatient (CLI) | payer MEDICARE, OTHER ==
[~2022-10-03] VITALS: Ht 185.4 cm; Wt 111.1 kg
[~2022-10-03 11:58] MED LIST changes: +AMIO200T65 PO; +AMIO400T5 PO; +APIX5TAB PO; +BLOO1EAC87 MC; +GLMP1T PO; +METF-397 PO; +METO-333 PO; +TOLT4CAP26 PO; +VNL75T PO; +[UNRECOGNIZED DRUG - CODE] MC
== END 2022-10-03 12:58 | disposition home or self-care (01) ==
LOC: PREOP 11:58
PROVIDERS: ATTEND Surgery
DX: Z01.818 Encounter for other preprocedural examination (principal)

== ENCOUNTER 2022-10-06 10:06 | Day surgery (SDC) | payer MEDICARE, OTHER ==
[~2022-10-06] VITALS: Ht 185.4 cm; Wt 111.1 kg
[2022-10-06] MEDS ORDERED: LACTATED RINGERS 1,000 ML IV STA (10:14)
[2022-10-06] MEDS ORDERED: HURRICAINE EXT TUBE (BENZOCAINE) XX PRN (10:15)
[2022-10-06 10:30] VITALS: BP 149/92
[2022-10-06] MEDS ORDERED: proPOfol 200 MG/20 ML (DIPRIVAN) VIAL IV ONE (10:31)
--- NOTE | 2022-10-06 10:32 | Progress Note-Pre Operative ---
Pre-Operative Progress Note Date of Available H&P: Oct 02, 2022 Date H&P Reviewed: Oct 06, 2022 Time H&P Reviewed: 10:31 History & Physical: H&P Reviewed, Patient Examed, No changes noted Pre-Operative Diagnosis: Dysphagia MICAH CULLEN DO Oct 06, 2022 10:32
[2022-10-06 11:04] VITALS: BP 113/59
[2022-10-06 11:05] VITALS: BP 104/62
--- NOTE | 2022-10-06 11:08 | Progress Note-Post Operative ---
Post-Operative Progess Note Surgeon (s)/Tube Knitter (s) Surgeon MICAH CULLEN DO Tube Knitter: none Pre-Operative Diagnosis Dysphagia Post-Operative Diagnosis Gastritis Hiatal Hernia Procedure & Operative Findings Date of Procedure 10/06/22 Procedure Performed/Findings EGD PROCEDURE NOTE: After informed consent was obtained, the patient was brought to the endoscopy suite, placed in bed in left lateral decubitus position. He was administered IV sedation by the CREPE MAKER who then monitored vitals the entire time, heart rate, blood pressure and pulse ox and the scope was inserted down the mouth through the esophagus into the stomach. On the way down, noted some mild esophagitis, took a picture, pushed into the stomach, pushed past the antrum into the duodenum. Duodenum looked good. Pulled back and noted gastritis, elected not to do a biopsy of the antrum, because he did not stop his Eliquis and it didn't look bad enough. I then retroflexed the scope, saw a large grade IV AFS hiatal hernia. I took a picture of this and then pulled the scope into the GE junction, took another picture of the hiatal hernia. Pushed the scope back into the stomach, suctioned all the air out of the stomach. At this point pulled the scope up the esophagus and out the mouth. The patient tolerated the procedure, and he recovered in endoscopy suite. Anesthesia Type IV sedation by CREPE MAKER Estimated Blood Loss Estimated blood loss (mL): none Specimens/Packing Specimens Removed none MICAH CULLEN DO Oct 06, 2022 11:08
--- NOTE | 2022-10-06 11:10 | Endoscopy Discharge Instruct ---
Endo Procedure/Findings Findings 1.: Gastritis 2.: Hiatal Hernia Discharge Instructions - Activity: You might feel a little sleepy until tomorrow. This is due to the medicine you received to relax you. Until tomorrow, you should: NOT drive a car, operate machinery or power tools. NOT drink any alcoholic beverages. NOT make any important decisions or sign importortant papers. Do not return to work until tomorrow, unless otherwise instructed. Resume previous activities tomorrow. Diet: Start by taking liquids. If you tolerate liquids, advance to solid food. 1.: EGD in 3 years Notify Physician - If you experience excessive bleeding, unusual abdominal pain, fever, or chest pain, contact your doctor immediately. Follow-Up: Other Follow up in my office in one week MICAH CULLEN DO Oct 06, 2022 11:10
[2022-10-06 11:25] VITALS: BP 132/78
[2022-10-06 11:40] VITALS: BP 132/78
--- NOTE | 2022-10-06 11:45 | Anesthesia-General Post-Op ---
MAC Patient Condition Mental Status/LOC: Same as Preop Cardiovascular: Satisfactory Nausea/Vomiting: Absent Respiratory: Satisfactory Pain: Controlled Complications: Absent Post Op Complications Complications None Follow Up Care/Instructions Patient Instructions None needed. Anesthesiology Discharge Order Discharge Order Patient is doing well, no complaints, stable vital signs, no apparent adverse anesthesia problems. No complications reported per nursing. KIRBY MOISE CRNA Oct 06, 2022 11:45
== END 2022-10-06 11:40 | disposition home or self-care (01) ==
LOC: ENDO 10:06
PROVIDERS: ATTEND Surgery
DX: K29.70 Gastritis, unspecified, without bleeding (principal); K44.9 Diaphragmatic hernia without obstruction or gangrene; G47.33 Obstructive sleep apnea (adult) (pediatric); K20.90 Esophagitis, unspecified without bleeding; E11.9 Type 2 diabetes mellitus without complications; Z79.84 Long term (current) use of oral hypoglycemic drugs; Z79.01 Long term (current) use of anticoagulants; E66.9 Obesity, unspecified; Z68.32 Body mass index [BMI] 32.0-32.9, adult
CPT/HCPCS: 82947

== ENCOUNTER → 2022-10-29 | Outpatient (CLI) | payer MEDICARE, OTHER ==
[~2022-10-29] MED LIST changes: +CATHETER FLUSH 10 ML SYR IVP PRN; +REGADENOSON 0.4 MG/5 ML SYR IV ONE
[2022-10-29 13:06] VITALS: BP 130/78
[2022-10-29 13:20] VITALS: BP 173/120
--- NOTE | 2022-10-29 15:52 | Cardiology Stress Test Report ---
Stress Test Report Date of Procedure/Referring: Date of Procedure: Oct 29, 2022 PCP Karan Masters MD Admitting Physician Admitting Physician: Attending Physician: Nita Boucher Indications: CAD Baseline Heart Rate: 54 Baseline Blood Pressure: Blood Pressure Systolic: 173 Blood Pressure Diastolic: 120 Baseline Vitals Vital Signs Date Time Temp Pulse Resp B/P (MAP) Pulse Ox O2 Delivery O2 Flow Rate FiO2 10/29/22 13:06 54 130/78 (95) 10/29/22 13:20 95 Baseline EKG: Baseline EKG: NSR Summary After explaining the procedure to the patient, he signed a consent and then brought to the stress nuclear laboratory. Patient received 0.4 mg Lexiscan for stress test, ECG, heart rate and blood pre ssure were monitored continuously. Resting and stress dose of radio tracer were injected, imaging was acquired and reviewed in short axis, horizontal long axis and vertical long axis views. TID: 0.98 SSS: 5 SDS: 5 EF: 71 Patient was unable to exercise, test was converted to Lexiscan Myoview stress test Patient tolerated Lexiscan well Diaphragmatic attenuation with reversible ischemia involving the inferoapical segment on the lateral segment of the inferior wall Normal left ventricular size, ejection fraction 71% Copy Copies To 1: KARAN MASTERS MD, BASHAR J MD Oct 29, 2022 15:52
== END ==
LOC: CARD 10:56
PROVIDERS: ATTEND Physician Assistant
DX: I10 Essential (primary) hypertension (principal); I25.10 Atherosclerotic heart disease of native coronary artery without angina pectoris
CPT/HCPCS: 78452; 93017; A9502

== ENCOUNTER 2022-11-12 11:04 | Day surgery (SDC) | payer MEDICARE, OTHER ==
[~2022-11-12] VITALS: Ht 185.4 cm; Wt 111.1 kg
[2022-11-12] VITALS (10 sets, daily range): BP systolic 112–146; BP diastolic 67–87
[~2022-11-12 11:04] MED LIST changes: -CATHETER FLUSH 10 ML SYR IVP PRN; -REGADENOSON 0.4 MG/5 ML SYR IV ONE
[2022-11-12] MEDS ORDERED: HEParin (CATH LAB) 2,000 ML IV ONE (11:11)
[2022-11-12] MEDS ORDERED: NS IV 1000 ML 1,000 ML ONE (11:11)
[2022-11-12] MEDS ORDERED: LIDOCAINE 1% INJ 20 ML VIAL ONE (11:11)
[2022-11-12] MEDS ORDERED: NS IV 1000 ML 1,000 ML IV SCH ×2 (11:15→13:30)
[2022-11-12] MEDS ORDERED: fentaNYL INJECTION 100 MCG/2 ML VIAL ONE (11:41)
[2022-11-12] MEDS ORDERED: VERAPAMIL 5 MG/2 ML (CALAN) VIAL IV ONE (11:41)
[2022-11-12] MEDS ORDERED: MIDAZOLAM INJ 5 MG/5 ML VIAL ONE (11:41)
[2022-11-12] MEDS ORDERED: HEParin 1000 UNIT/ML (10ML VIAL) FOR BOLUS ONE (11:41)
[2022-11-12] MEDS ORDERED: NITRO DRIP 25000 MCG/D5W 250 ML IV ONE (11:41)
--- NOTE | 2022-11-12 11:44 | Cardiac Procedure Note-CS/ASA ---
Pre-Procedure Note Pre-Op Procedure Note Date of Available H&P: Oct 30, 2022 Date H&P Reviewed: Nov 12, 2022 Time H&P Reviewed: 11:44 History & Physical: H&P Reviewed, Patient Examed, No changes noted Pre-Operative Diagnosis: CAD Moderate Sedation PreProcedure Time 11:44 ASA Score 3 Airway Lungs Heart ASA score ASA 1: a normal healthy patient ASA 2: a patient with a mild systemic disease (mid diabetes, controlled hypertension, obesity ASA 3: a patient with a severe systemic disease that limits activity (angina, COPD, prior Myocardial infarction) ASA 4: a patient with an incapacitating disease that is a constant threat to life (CHF, renal failure) ASA 5: a moribund patient not expected to survive 24 hrs. (ruptured aneurysm) ASA 6: a declared brain- patient whose organs are being harvested. For emergent operations, add the letter E after the classification Mallampati Classification Grade 3 Sedation Plan Analgesia, Amnesia, Plan communicated to team members, Discussed options with patient/fam, Discussed risks with patient/fam The patient is an appropriate candidate to undergo the planned procedure, sedation, and anesthesia. The patient immediately re-assessed prior to indication. JERED DALE MD Nov 12, 2022 11:44
[2022-11-12 11:50] LABS: HEMATOCRIT 51 % (40-54); HEMOGLOBIN 17.2 g/dL (13.3-17.7); MEAN CORPUSCULAR HEMOGLOBIN 30 pg (25-34); MEAN CORPUSCULAR HGB CONC 34 g/dL (32-36); MEAN CORPUSCULAR VOLUME 89 fL (80-99); MEAN PLATELET VOLUME 10.4 fL (9.0-12.2); PLATELET COUNT 342 10^3/uL (130-400); WHITE BLOOD COUNT 8.9 10^3/uL (4.3-11.0)
--- NOTE | 2022-11-12 11:50 | Diagnostic Imaging Report ---
INDICATION: Abnormal cardiac stress test Single AP view of the chest is obtained with comparison made to study of 05/10/2022. Heart size and pulmonary vascularity remain within normal limits. There is no evidence of pneumothorax, consolidation or significant pleural fluid. Large hiatal hernia is again noted. IMPRESSION: Stable chest without acute complication. Large hiatal hernia is again noted. Dictated by: Dictated on workstation # [id number]
[2022-11-12] MEDS ORDERED: AMIO400T5 PO (11:56)
[2022-11-12] MEDS ORDERED: VNL75T PO (11:56)
[2022-11-12] MEDS ORDERED: TOLT4CAP26 PO (11:56)
[2022-11-12] MEDS ORDERED: APIX5TAB PO (11:56)
[2022-11-12] MEDS ORDERED: AMLO-251 PO (11:56)
[2022-11-12] MEDS ORDERED: HYDR25TA4 PO (11:56)
[2022-11-12] MEDS ORDERED: FOSI40TA65 PO (11:56)
[2022-11-12] MEDS ORDERED: GLIM1TAB4 PO (11:56)
[2022-11-12] MEDS ORDERED: METO-333 PO (11:56)
[2022-11-12] MEDS ORDERED: METF-399 PO ×2 (11:56→13:21)
[2022-11-12 11:58] LABS: PROTHROMBIN TIME PATIENT 13.7 SEC (12.2-14.7)
[2022-11-12 12:09] LABS: ALBUMIN 4.4 GM/DL (3.2-4.5); BILIRUBIN,TOTAL 0.9 MG/DL (0.1-1.0); BILIRUBIN,URINE NEGATIVE (NEGATIVE); CLARITY,URINE CLEAR; COLOR,URINE YELLOW; CREATININE SERUM 1.26 MG/DL (0.60-1.30); GLUCOSE, URINE (UA) NEGATIVE (NEGATIVE); KETONES,URINE NEGATIVE (NEGATIVE); NITRITE,URINE NEGATIVE (NEGATIVE); PH,URINE 6.5 (5-9); POTASSIUM 4.1 MMOL/L (3.6-5.0); PROTEIN,URINE NEGATIVE (NEGATIVE); TOTAL PROTEIN 7.7 GM/DL (6.4-8.2)
[2022-11-12 12:10] LABS: BACTERIA,URINE NEGATIVE /HPF; LEUKOCYTE ESTERASE ,URINE NEGATIVE (NEGATIVE); SQUAMOUS EPITHELIAL CELL,UR RARE /HPF
--- NOTE | 2022-11-12 13:22 | Discharge Inst-Post CATH ---
Discharge Inst-CATH/EP Problems Reviewed?: Yes Post Cardiac Cath/EP D/C Inst Follow Up/Plan Hold metformin for [address] Stanley's office in 2 to 4 weeks <b>CARDIAC CATH/EP PROCEDURE DISCHARGE INSTRUCTIONS</b> ACTIVITY * Go Home directly and rest. * Limit activity of the leg (or wrist if it was used) for 7 days including aerobics, swimming, jogging, bicycling, etc. * Restrict stair-climbing for 7 days if possible, if not, climb up with your non-cath leg, then bring together on the same step. * Avoid lifting, pushing, pulling or excessive movement of the affected extremity for 7 days. * Customary sexual activity may be resumed after 2 days-use caution not to use a position that strains or causes pain to the affected extremity. * No driving for 24 hours. * NO SMOKING. * Avoid straining for bowel movements for 7 days. * Gentle walking on level ground is allowed. * Returning to work will depend on the type of procedure and the results. Your doctor will discuss this with you. CALL YOUR DOCTOR FOR ANY OF THE FOLLOWING: *If bleeding from the puncture site occurs- Apply gentle pressure to site with clean cloth and call your doctor or EMS. * If a knot or lump forms under the skin, increases in size, or causes pain. * If bruising appears to be worsening or moving further down your leg instead of disappearing. * Temperature above 101 F. CARE OF YOUR GROIN INCISION; * Bruising or purple discoloration of the skin near the puncture site is common. * You may shower only, no bathtub bathing for 5 days. Be careful to avoid slipping as your leg may feel stiff. * If a closure device was used on your femoral artery, please see the attached guide regarding care of the device and your leg. * Leave dressing on FOR 24 hours. CARE OF YOUR WRIST INCISION; * Bruising or purple discoloration of the skin near the puncture site is common. * You may shower. * DO NOT submerge wrist. * Leave dressing on FOR 24 hours. JERED STANLEY MD Nov 12, 2022 13:22
--- NOTE | 2022-11-12 13:26 | Cardiac Cath Report ---
Cardiac Cath Report Physician (s)/Nursery Helper (s) Physician JERED DALE MD Pre-Procedure Diagnosis Pre-Procedure Diagnosis: CAD Post-Procedure Note Procedure Start Date: Nov 12, 2022 Name of Procedure: Left heart catheterization Aortic arch angiogram Findings/Procedure Note PROCEDURE NOTE: 72-year-old gentleman with history of diabetes mellitus, hypertension hyperlipidemia, had an abnormal stress test, scheduled for cardiac catheterization possible PTCA. After explaining the procedure to the patient, all pros and cons were explained, all questions were answered. The patient signed the consent and then he was placed in the cardiac catheterization laboratory. Groin was prepped in SL fashion local anesthesia was used. Sheath placed in the artery. Flakito' right and left catheter were used to access the coronary system. Flakito right catheter was prolapsed to the left ventricular cavity, pressure was measured, pullback LV to aorta was done, I did aortic arch angiogram for evaluation and preparation for possible bypass surgery. At the end of the procedure the sheath was removed. Closure device was deployed FINDINGS: Hemodynamics LV 126/14, end-diastolic pressure 14 Aorta 116/57 mean of 78 ANATOMY: Left Main is free of obstructive disease Left Anterior Descending has 80 to 90% stenosis at the mid LAD involving the ostium with severe stenosis at the ostial diagonal artery. Left Circumflex is moderate in size, with 90% stenosis distally. First obtuse marginal branch is occluded getting collaterals and getting filled by collaterals Right Coronary Artery is large dominant artery with multiple segment of severe stenosis at the distal right PDA LV Gram was not done, known to have ejection fraction of 70% Aorta evaluation with aortic arch angiogram showing normal aortic arch, no dissection or aneurysm, tortuous brachial cephalic artery, no obstructive disease and the left carotid and left subclavian arteries CONCLUSION: Multivessel coronary artery disease including severe mid LAD involving severe ostial diagonal artery, severe distal circumflex artery and occluded obtuse marginal branch and severe distal right PDA Normal left ventricular end-diastolic pressure Normal aortic arch and great vessels of the neck DISCUSSION AND RECOMMENDATION: I discussed with the patient the management plan recommended referral for bypass surgery, patient want to explore any possibility of doing intervention without bypass surgery, I did discuss it with Dr. Ibrahim who accepted to attempt for high risk intervention as an outpatient. Anesthesia Type: Conscious Sedation Estimated blood loss (mL): 15 ml Contrast Amount: 46 ml Total Radiation Dose: 799 mGy Post-Procedure Diagnosis Post-operative diagnosis: Chest pain Coronary artery disease Hypertension Hyperlipidemia Diabetes mellitus JERED DALE MD Nov 12, 2022 13:26
[2022-11-12] MEDS ORDERED: PATIENT MAY USE OWN MEDS, ALL PO SCH (13:30)
== END 2022-11-12 17:00 ==
LOC: CATH 11:04 → SDC 13:28 → CATH 17:00
PROVIDERS: ATTEND Internal Medicine Cardiovascular Disease
DX: I25.10 Atherosclerotic heart disease of native coronary artery without angina pectoris (principal); I10 Essential (primary) hypertension; E78.5 Hyperlipidemia, unspecified; E11.9 Type 2 diabetes mellitus without complications; I48.0 Paroxysmal atrial fibrillation; G47.33 Obstructive sleep apnea (adult) (pediatric); I65.23 Occlusion and stenosis of bilateral carotid arteries; F32.A Depression, unspecified; Z79.899 Other long term (current) drug therapy; Z99.81 Dependence on supplemental oxygen; Z79.84 Long term (current) use of oral hypoglycemic drugs
CPT/HCPCS: 36221; 71045; 80053; 80061; 81000; 85027; 85610; 85730; 87081; 93005; 93458; C1760; C1894; 36415

== ENCOUNTER 2023-02-02 15:35 | Observation (INO) | payer MEDICARE, OTHER ==
[~2023-02-02] VITALS: Ht 185.4 cm; Wt 107.5 kg
[~2023-02-02 15:35] MED LIST changes: +DOCU-143 PO; +GLIM1TAB4 PO; +METF-399 PO; +ONDA4TAB11 SL; +PANT40TA2 PO
[2023-02-02] MEDS ORDERED: KETOROLAC INJ 15 MG/ML VIAL IM ONE (16:15)
[2023-02-02] MEDS ORDERED: HYDROcodone/ACETAMINOPHEN 10/325 TABLET PO ONE (16:15)
[2023-02-02] MEDS ORDERED: ORPHENADRINE 60 MG/2 ML AMP (ED ONLY) IM ONE (16:15)
--- NOTE | 2023-02-02 16:20 | ED General ---
General Chief Complaint: Chest Wall Stated Complaint: FELL, SORE RIBS, SORE HIP, DRY HEAVES Nursing Triage Note: PT TO FT2 BY WC WITH SPOUSE WITH C/O L HIP AND L RIB PAIN AFTER A FALL THURSDAY MORNING Source of Information: Patient Exam Limitations: No Limitations (JON SWIFT APRN) History of Present Illness Date Seen by Provider: Feb 02, 2023 Time Seen by Provider: 16:01 Initial Comments 72-year-old male presents to the ER with complaint of left hip and left rib pain. He reports that he tripped over the bedpost on Thursday causing him to fall. He denies hitting his head. He last took Tylenol around noon today. He denies any abdominal pain. Patient reports he has been able to walk since the fall. He has had a previous hip replacement in his left hip. (JON SWIFT APRN) Allergies and Home Medications Allergies Coded Allergies: morphine (Unverified Allergy, Mild, 11/16/10) Patient Home Medication List Home Medication List Reviewed: Yes (JON SWIFT APRN) Amiodarone HCl (Amiodarone HCl) 400 Mg Tablet, 400 MG PO DAILY, (Reported) Entered as Reported by: DINA BROWN on 11/12/221155 Last Action: Reviewed Amlodipine Besylate (Amlodipine Besylate) 10 Mg Tablet, 10 MG PO DAILY, (Reported) Entered as Reported by: DINA BROWN on 11/12/221155 Last Action: Reviewed Apixaban (Eliquis) 5 Mg Tablet, 5 MG PO BID, (Reported) Entered as Reported by: DINA BROWN on 11/12/221155 Last Action: Reviewed Atorvastatin Calcium (Atorvastatin Calcium) 80 Mg Tablet, 80 MG PO HS, (Reported) Entered as Reported by: DENVER BERMEO on 02/03/23 1231 Last Action: Reviewed Fosinopril Sodium (Fosinopril Sodium) 40 Mg Tablet, 40 MG PO DAILY, (Reported) Entered as Reported by: DINA BROWN on 11/12/221155 Last Action: Reviewed Glimepiride (Glimepiride) 1 Mg Tablet, 1 MG PO DAILY, (Reported) Entered as Reported by: DINA BROWN on 11/12/221155 Last Action: Reviewed Hydrochlorothiazide (Hydrochlorothiazide) 25 Mg Tablet, 25 MG PO DAILY, (Reported) Entered as Reported by: DINA BROWN on 11/12/221155 Last Action: Reviewed Metformin HCl (Metformin HCl) 1,000 Mg Tablet, 1,000 MG PO DAILY, (Reported) Entered as Reported by: DENVER BERMEO on 02/03/23 123 Last Action: Reviewed Prasugrel HCl (Prasugrel HCl) 10 Mg Tablet, 10 MG PO DAILY, (Reported) Entered as Reported by: DENVER BERMEO on 02/03/23 123 Last Action: Reviewed Tolterodine Tartrate (Tolterodine Tartrate ER) 4 Mg Cap.er.24h, 4 MG PO DAILY, (Reported) Entered as Reported by: DINA BROWN on 11/12/221155 Last Action: Reviewed Venlafaxine HCl (Venlafaxine HCl) 75 Mg Tab, 75 MG PO BID, (Reported) Entered as Reported by: DINA BROWN on 11/12/221155 Last Action: Reviewed Review of Systems Review of Systems Constitutional: see HPI (JON SWIFT APRN) Past Autfydo-Zdezhc-Afvxov Hx Patient Social History Tobacco Use?: No Use of E-Cig and/or Vaping dev: No Alcohol Use?: No Pt feels they are or have been: No (JON SWIFT APRN) Immunizations Up To Date Tetanus Booster (TDap): Unknown PED Vaccines UTD: No Influenza Vaccine Up-to-Date: No; Not Current First/Initial COVID19 Vaccinat: 2020 Second COVID19 Vaccination Reji: 2020 Third COVID19 Vaccination Date: 2020 (JON SWIFT APRN) Past Medical History Surgery/Hospitalization HX: HTN, DM, DEPRESSION STENTS X3, BILAT SHOULDER REPLACEMENTS, BILAT KNEE REPLACEMENTS, BILAT HIP REPLACEMENTS Surgeries: Yes (R/L SHOULDER replaced, R/L TKR, GANGLION, hand, R/L hip replaced) Eye Surgery, Joint Replacement, Orthopedic Respiratory: Yes Sleep Apnea Currently Using CPAP: Yes Currently Using BIPAP: No Cardiac: Yes Hypertension Neurological: No Reproductive Disorders: No Genitourinary: Yes Prostate Problems Gastrointestinal: Yes Diverticulosis, Hemorrhoids Musculoskeletal: Yes (MULTIPLE ORTHOPEDIC SURGERIES) Arthritis Endocrine: No HEENT: Yes Hearing Impairment: Hard of Hearing, Bilateral Hearing Aide Cancer: No Psychosocial: Yes Depression Integumentary: No Blood Disorders: No (JON SWIFT APRN) Family Medical History Stroke PAST SURGICAL HISTORY: RIGHT CATARACT SURGERY 12/2021 BILATERAL SHOULDER REPLACEMENTS BILATERAL HIP REPLACEMENTS BILATERAL KNEE REPLACEMENTS GANGLION CYST REMOVED SCREENING COLONOSCOPIES--LAST ONE [address] SMITH. (JON SWIFT APRN) Physical Exam Vital Signs Vital Signs - First Documented 02/02/23 15:48 Temp 37.3 Pulse 81 Resp 16 B/P (MAP) 124/79 (94) Pulse Ox 92 O2 Delivery Room Air Capillary Refill : Height, Weight, BMI Height: 6'1.00" Weight: 255lbs. 0.0oz. 115.140040ij; 32.00 BMI Method:Stated General Appearance: WD/WN, Mild Distress (Intermittent with breathing and moving) Neck: Normal Inspection, Supple Respiratory: Lungs Clear, Normal Breath Sounds, No Accessory Muscle Use, No Respiratory Distress, Other (Tenderness over left ribs anteriorly, laterally, and posteriorly) Cardiovascular: Regular Rate, Rhythm Gastrointestinal: Non Tender, Soft Extremity: Normal Inspection, Normal Range of Motion Neurologic/Psychiatric: Alert, Normal Mood/Affect (JON SWIFT APRN) Progress/Results/Core Measures Suspected Sepsis SIRS Temperature: Pulse: 81 Respiratory Rate: 16 Blood Pressure 124 /79 Mean: 94 (JON SWIFT APRN) Results/Orders My Orders Orders - JON SWIFT APRN Ketorolac Injection (Ketorolac Injection (02/02/23 16:15) Hydrocodone/Apap 10/325 Tablet (Hydrocod (02/02/23 16:15) Orphenadrine Inj (Ed Only) (Orphenadrine (02/02/23 16:15) Ct Chest W Wo (02/02/23 16:08) Pelvis With Left Hip 2-3 Views (02/02/23 16:08) Vital Signs/I&O 02/02/23 15:48 Temp 37.3 Pulse 81 Resp 16 B/P (MAP) 124/79 (94) Pulse Ox 92 O2 Delivery Room Air Capillary Refill : Blood Pressure Mean: 94 (JON SWIFT APRN) Progress Note : Progress Note Patient seen and evaluated, resting in chair, intermittent acute distress with breathing and moving. Based on exam and symptoms, CT of the chest and left hip x-ray ordered. Toradol, Norflex, and [place] ordered. 173 CT and x-ray reviewed. CT shows nondisplaced fractures involving the lateral aspect of the left eighth and ninth ribs. No pneumothorax or pleural effusion. Large hiatal hernia. Scattered bibasilar opacities, no focal consolidation. Cardiomegaly, no overt pulmonary edema. Cholelithiasis without evidence of acute cholecystitis. Patient reevaluated. Patient reports improvement in pain, but still has pain with deep breaths. Oxygen saturation reassessed, patient is 89 to 90% on room air. Patient does not appear to be in any acute distress. Patient likely has a pulmonary contusion. I called and spoke with Dr. Maurer, surgery, regarding patient. He agrees to admit patient due to trauma, rib fractures, pulmonary contusion, and hypoxia. He would like me to consult with medicine due to patient's medical history. He does not want patient to receive any IV fluids. He would like RT to evaluate and treat as needed and for patient to have incentive spirometer. I will place admission orders. He would like patient to be admitted as observation to [facility]. I called and spoke with Dr. Garnett, hospitalist, regarding patient. He agrees to consult. He would like patient placed on sliding scale today and to continue his blood thinners. Plan of care discussed with patient. Patient agrees to admission. IV, CBC, CMP and oxygen ordered. (JON SWIFT APRN) Diagnostic Imaging Diagonstic Imaging: CT Plain Films/CT/US/NM/MRI: chest Comments [facility], [place] NAME: CAYDEN CARRIZALES [facility] REC#: [id number] PT STATUS: REG ER : 1950 PHYSICIAN: JON SWIFT APRN ADMIT DATE: 02/02/23/ER Signed Date of Exam:02/02/23 CT CHEST WO EXAMINATION: CT chest without contrast. TECHNIQUE: Multiple contiguous axial images were obtained through the chest without the use of intravenous contrast. All CT scans use one or more of the following dose optimizing techniques: automated exposure control, MA and/or KvP adjustment based on patient size and exam type or iterative reconstruction. HISTORY: Fall. Chest pain. COMPARISON: 06/26/2021. FINDINGS: The heart size is enlarged. No pericardial effusion is present. There is no mediastinal, hilar, or axillary lymphadenopathy. The lungs demonstrate no pulmonary nodules or masses. Scattered bibasilar opacities are seen. There are no focal areas of consolidation. No central endobronchial obstructing lesions are identified. There is no pleural effusion or pneumothorax. Nondisplaced fractures are seen involving the lateral aspect of the left eighth and ninth ribs. No fracture in the thoracic spine. Bilateral shoulder arthroplasties are seen. Large hiatal hernia is seen with intrathoracic stomach. Gallstones are seen within the gallbladder lumen. IMPRESSION: 1. Nondisplaced fractures involving the lateral aspect of the left eighth and ninth ribs. No pneumothorax or pleural effusion. 2. Large hiatal hernia with intrathoracic stomach. 3. Scattered bibasilar opacities. No focal consolidation. 4. Cardiomegaly. No overt pulmonary edema. 5. Cholelithiasis without CT evidence of acute cholecystitis. Dictated by: Dictated on workstation # [id number] Dict: 02/02/23 1652 Trans: 02/02/23 1700 [id number] Interpreted by: LIANNA LEE DO Electronically signed by: LIANNA LEE DO 02/02/23 1700 (JON SWIFT APRN) Departure Communication (Admissions) Time/Spoke to Admitting Phy: 17:33 Dr. Garnett, hospitalist, see progress note. Time/Spoke to Consulting Phy: 17:19 Dr. Maurer, surgery, see progress note. (JON SWIFT APRN) Impression Primary Impression: Pulmonary contusion Additional Impressions: Ribs, multiple fractures Hypoxia Fall Disposition: ADMITTED INPATIENT Condition: Stable Admissions Decision to Admit Reason: Admit from ER (General) Decision to Admit/Date: Feb 02, 2023 Time/Decision to Admit Time: 17:19 (JON SWIFT APRN) Departure-Patient Inst. Referrals: RA MASTERS MD (PCP/Family) Primary Care Physician ATTENDING PHYSICIAN NOTE: I was physically present as attending physician in the emergency department during the care of this patient, but I was not directly involved in the decision making or delivery of care for this patient. (MATTHEW VILLAGOMEZ MD) JON SWIFT APRN Feb 02, 2023 16:20 MATTHEW VILLAGOMEZ MD Feb 03, 2023 13:48
--- NOTE | 2023-02-02 16:55 | Diagnostic Imaging Report ---
EXAMINATION: Pelvic radiograph TECHNIQUE: AP view of the pelvis and AP and crosstable view of the left hip obtained. HISTORY: pelvic, hip pain COMPARISON: None available. FINDINGS: Bilateral hip prosthesis. No periprosthetic lucency or fracture. Normal joint spaces. Pelvic phleboliths. Degenerative changes within the lumbar spine. IMPRESSION: Well aligned total left hip prosthesis. Dictated by: Dictated on workstation # [id number]
--- NOTE | 2023-02-02 16:58 | Diagnostic Imaging Report ---
EXAMINATION: CT chest without contrast. TECHNIQUE: Multiple contiguous axial images were obtained through the chest without the use of intravenous contrast. All CT scans use one or more of the following dose optimizing techniques: automated exposure control, MA and/or KvP adjustment based on patient size and exam type or iterative reconstruction. HISTORY: Fall. Chest pain. COMPARISON: 06/26/2021. FINDINGS: The heart size is enlarged. No pericardial effusion is present. There is no mediastinal, hilar, or axillary lymphadenopathy. The lungs demonstrate no pulmonary nodules or masses. Scattered bibasilar opacities are seen. There are no focal areas of consolidation. No central endobronchial obstructing lesions are identified. There is no pleural effusion or pneumothorax. Nondisplaced fractures are seen involving the lateral aspect of the left eighth and ninth ribs. No fracture in the thoracic spine. Bilateral shoulder arthroplasties are seen. Large hiatal hernia is seen with intrathoracic stomach. Gallstones are seen within the gallbladder lumen. IMPRESSION: 1. Nondisplaced fractures involving the lateral aspect of the left eighth and ninth ribs. No pneumothorax or pleural effusion. 2. Large hiatal hernia with intrathoracic stomach. 3. Scattered bibasilar opacities. No focal consolidation. 4. Cardiomegaly. No overt pulmonary edema. 5. Cholelithiasis without CT evidence of acute cholecystitis. Dictated by: Dictated on workstation # [id number]
[2023-02-02 17:49] LABS: BASOPHILS # (AUTO) 0.1 10^3/uL (0.0-0.1); BASOPHILS % (AUTO) 1 % (0-10); EOSINOPHILS # (AUTO) 0.3 10^3/uL (0.0-0.3); EOSINOPHILS % (AUTO) 2 % (0-10); HEMATOCRIT 46 % (40-54); HEMOGLOBIN 15.3 g/dL (13.3-17.7); LYMPHOCYTES # (AUTO) 1.1 10^3/uL (1.0-4.0); LYMPHOCYTES % (AUTO) 7 % (12-44); MEAN CORPUSCULAR HEMOGLOBIN 29 pg (25-34); MEAN CORPUSCULAR HGB CONC 33 g/dL (32-36); MEAN CORPUSCULAR VOLUME 88 fL (80-99); MEAN PLATELET VOLUME 10.6 fL (9.0-12.2); MONOCYTES # (AUTO) 1.2 10^3/uL (0.0-1.0); MONOCYTES % (AUTO) 9 % (0-12); NEUTROPHILS # (AUTO) 11.7 10^3/uL (1.8-7.8); NEUTROPHILS % (AUTO) 81 % (42-75); PLATELET COUNT 304 10^3/uL (130-400); WHITE BLOOD COUNT 14.4 10^3/uL (4.3-11.0)
[2023-02-02 18:02] LABS: POTASSIUM 4.4 MMOL/L (3.6-5.0)
[2023-02-02 18:03] LABS: CALCIUM 9.2 MG/DL (8.5-10.1)
[2023-02-02 18:04] LABS: TOTAL PROTEIN 7.8 GM/DL (6.4-8.2)
[2023-02-02 18:06] LABS: BILIRUBIN,TOTAL 1.5 MG/DL (0.1-1.0)
[2023-02-02 18:08] LABS: CREATININE SERUM 1.55 MG/DL (0.60-1.30)
[2023-02-02 18:11] LABS: EOSINOPHILS % (MANUAL) 2 %; LYMPHOCYTES % (MANUAL) 3 %; MONOCYTES % (MANUAL) 7 %; NEUTROPHILS % (MANUAL) 85 %
[2023-02-02 18:12] LABS: RBC MORPH NORMAL; REACTIVE LYMPHOCYTES 3 %
[2023-02-02] MEDS ORDERED: ONDANSETRON INJECTION 4 MG/2 ML (SDV) IV PRN (18:45)
[2023-02-02] MEDS ORDERED: CATHETER FLUSH 10 ML SYR IVP PRN (18:45)
[2023-02-02] MEDS ORDERED: HYDROmorphone INJECTION 2 MG/ML VIAL IV PRN (18:45)
[2023-02-02 18:48] VITALS: BP 112/65
[2023-02-02 19:12] VITALS: BP 103/67
[2023-02-02 19:18] VITALS: BP 124/79
[2023-02-02] MEDS ORDERED: RT-Ipratropium/Albuterol NEB 3 ML VIAL INH PRN (19:30)
[2023-02-02] MEDS ORDERED: FLU HIGH DOSE (65+ YOA) 240 MCG/0.7 ML 2023-24 (FLUZONE) IM ONE (19:30)
[2023-02-02] MEDS: inSUlin ASPART 1 UNIT/0.01 ML (PER UNIT) SC SCH (22:00)
[2023-02-02] MEDS: CATHETER FLUSH 10 ML SYR IVP SCH (22:00)
[2023-02-02 23:33] VITALS: BP 112/65
[2023-02-03] VITALS (7 sets, daily range): BP systolic 110–170; BP diastolic 65–88
[2023-02-03] MEDS: HYDROcodone/ACETAMINOPHEN 5 MG/325 MG TABLET PO PRN ×2 (01:18→08:08)
[2023-02-03] MEDS: fentaNYL INJECTION 100 MCG/2 ML VIAL IV PRN ×3 (05:56→15:55)
[2023-02-03] MEDS: CATHETER FLUSH 10 ML SYR IVP SCH ×3 (05:56→20:14)
[2023-02-03] MEDS: inSUlin ASPART 1 UNIT/0.01 ML (PER UNIT) SC SCH ×4 (05:56→20:12)
[2023-02-03 06:54] LABS: BASOPHILS # (AUTO) 0.1 10^3/uL (0.0-0.1); BASOPHILS % (AUTO) 1 % (0-10); EOSINOPHILS # (AUTO) 0.6 10^3/uL (0.0-0.3); EOSINOPHILS % (AUTO) 5 % (0-10); HEMATOCRIT 45 % (40-54); HEMOGLOBIN 14.8 g/dL (13.3-17.7); LYMPHOCYTES # (AUTO) 0.9 10^3/uL (1.0-4.0); LYMPHOCYTES % (AUTO) 7 % (12-44); MEAN CORPUSCULAR HEMOGLOBIN 29 pg (25-34); MEAN CORPUSCULAR HGB CONC 33 g/dL (32-36); MEAN CORPUSCULAR VOLUME 88 fL (80-99); MEAN PLATELET VOLUME 10.7 fL (9.0-12.2); MONOCYTES # (AUTO) 1.3 10^3/uL (0.0-1.0); MONOCYTES % (AUTO) 10 % (0-12); NEUTROPHILS % (AUTO) 76 % (42-75); PLATELET COUNT 264 10^3/uL (130-400); WHITE BLOOD COUNT 13.1 10^3/uL (4.3-11.0)
[2023-02-03 07:10] LABS: POTASSIUM 3.5 MMOL/L (3.6-5.0)
[2023-02-03 07:11] LABS: CALCIUM 8.9 MG/DL (8.5-10.1)
[2023-02-03 07:15] LABS: CREATININE SERUM 1.43 MG/DL (0.60-1.30)
--- NOTE | 2023-02-03 07:42 | Consultation - Surgery ---
SHEA LOPEZ 02/03/23 0742: History of Present Illness History of Present Illness Patient Consulted On(alana/time) 02/03/23 07:37 Date Seen by Provider: Feb 03, 2023 Time Seen by Provider: 07:37 Reason for Visit: fall History of Present Illness Justin, 72M, notes that he presented to the the hospital due to a fall. He note that he was on the side of his bed, heard a loud noise, caught foot and fell. Denies hitting head. Denies falling like this before. No noticed changes in balance prior to fall. His chief concern is Rib pain, which is worse with deep breath, sharp pain, 11/09, pain killers have helped, movement makes it worse. He notes that he is on blood thinners for A.Fib eliquis. Reports last dose was on 02/02 at 1300. He notes he was in the hospital a few months ago for an EGD, which found Hiatal hernia, hasnt seen Dr. Cullen since then. No history of stomach issues. Justin notes he was in the hospital early December for HI with Dr. Garcia, where he had 3 stents placed. In the ED, the CT found cholelithasis without acute cholecystitis. He has no prior knowledge of cholelithasis- no stomach pain noted over the past few months, has some nausea if he doesnt eat with his medications. Denies eating fast food except on occasion. No post- prandial pain noted, only with pills. Denies diarrhea, constipation. No blood in stool. Upon chart review, he had an abnormal stress test in October, severe coronary artery disease noted. Which lead to stent placement with Dr. Garcia. Allergies and Home Medications Allergies Coded Allergies: morphine (Unverified Allergy, Mild, 11/16/10) Patient Home Medication List Amiodarone HCl (Amiodarone HCl) 400 Mg Tablet, 400 MG PO DAILY, (Reported) Entered as Reported by: DINA BROWN on 11/12/221155 Last Action: Reviewed Amlodipine Besylate (Amlodipine Besylate) 10 Mg Tablet, 10 MG PO DAILY, (Reported) Entered as Reported by: DINA BROWN on 11/12/22 115 Last Action: Reviewed Apixaban (Eliquis) 5 Mg Tablet, 5 MG PO BID, (Reported) Entered as Reported by: DINA BROWN on 11/12/221155 Last Action: Reviewed Atorvastatin Calcium (Atorvastatin Calcium) 80 Mg Tablet, 80 MG PO HS, (Reported) Entered as Reported by: DENVER BERMEO on 02/03/231230 Last Action: Reviewed Fosinopril Sodium (Fosinopril Sodium) 40 Mg Tablet, 40 MG PO DAILY, (Reported) Entered as Reported by: DINA BROWN on 11/12/221155 Last Action: Reviewed Glimepiride (Glimepiride) 1 Mg Tablet, 1 MG PO DAILY, (Reported) Entered as Reported by: DINA BROWN on 11/12/221155 Last Action: Reviewed Hydrochlorothiazide (Hydrochlorothiazide) 25 Mg Tablet, 25 MG PO DAILY, (Reported) Entered as Reported by: DINA BROWN on 11/12/221155 Last Action: Reviewed Metformin HCl (Metformin HCl) 1,000 Mg Tablet, 1,000 MG PO DAILY, (Reported) Entered as Reported by: DENVER BERMEO on 02/03/231230 Last Action: Reviewed Prasugrel HCl (Prasugrel HCl) 10 Mg Tablet, 10 MG PO DAILY, (Reported) Entered as Reported by: DENVER BERMEO on 02/03/231230 Last Action: Reviewed Tolterodine Tartrate (Tolterodine Tartrate ER) 4 Mg Cap.er.24h, 4 MG PO DAILY, (Reported) Entered as Reported by: DINA BROWN on 11/12/221155 Last Action: Reviewed Venlafaxine HCl (Venlafaxine HCl) 75 Mg Tab, 75 MG PO BID, (Reported) Entered as Reported by: DINA BROWN on 11/12/221155 Last Action: Reviewed Past Apwxcly-Lvwrek-Ipxmcp Hx Patient Social History Smoking Status: Never a Smoker 2nd Hand Smoke Exposure: No Recent Hopitalizations: No Sexual Abuse: No Alcohol Use?: Yes (wine every once in a while ) Immunizations Up To Date Tetanus Booster (TDap): Unknown PED Vaccines UTD: No Date of Pneumonia Vaccine: Nov 30, 2017 Date of Influenza Vaccine: Nov 30, 2017 Surgeries History of Surgeries: Yes (R/L SHOULDER replaced, R/L TKR, GANGLION, hand, R/L hip replaced) Surgeries: Coronary Stent (3 placed, Dr. Garcia, 01/22 ), Eye Surgery (cataracts ), Joint Replacement (Knee, hip, shoulder BL on all ), Orthopedic Respiratory History of Respiratory Disorde: Yes Respiratory Disorders: Sleep Apnea Cardiovascular History of Cardiac Disorders: Yes Cardiac Disorders: Atrial Fibrillation (Dr. galo ), Heart Attack, Hypertension Neurological History of Neurological Disord: No Reproductive System Hx Reproductive Disorders: No Genitourinary History of Genitourinary Disor: Yes Genitourinary Disorders: Prostate Problems Gastrointestinal History of Gastrointestinal Di: Yes Gastrointestinal Disorders: Gastroesophageal Reflux, Hiatal Hernia Musculoskeletal History of Musculoskeletal Dis: Yes (MULTIPLE ORTHOPEDIC SURGERIES) Musculoskeletal Disorders: Arthritis Endocrine History of Endocrine Disorders: No Endocrine Disorders: Diabetes, Non-Insulin dep (metformin ) HEENT History of HEENT Disorders: Yes HEENT Disorders: Cataract Hearing Impairment: Hard of Hearing, Bilateral Hearing Aide Cancer History of Cancer: No Psychosocial History of Psychiatric Problem: Yes 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[place] , post-combat ), Depression Integumentary History of Skin or Integumenta: No Blood Transfusions History of Blood Disorders: No Family Medical History Significant Family History: Hypertension (father ), Stroke (father ), Other Conditions/Hx ("didnt hang around much, unsure" ) Review of Systems-General Constitutional: No dizziness; weakness (constant ) EENTM: No blurred vision, No eye pain, No hoarseness Respiratory: No cough, No short of breath Cardiovascular: chest pain (rib pain ), Hx of Intervention; No palpitations Gastrointestinal: No abdominal pain, No constipation, No diarrhea Genitourinary: No dysuria, No frequency Musculoskeletal: No joint pain, No muscle pain; other (rib pain on left side ) Skin: No dryness, No hx of skin cancer Psychiatric/Neurological: Depressed; Denies Tingling Physical Exam-General Problems Physical Exam Vital Signs Vital Signs - First Documented 02/02/23 02/02/23 02/02/23 15:48 19:12 19:18 Temp 37.3 Pulse 81 Resp 16 B/P (MAP) 124/79 (94) Pulse Ox 92 O2 Delivery Room Air O2 Flow Rate 2.00 FiO2 21 Capillary Refill : General Appearance: mild distress (pain spells from rib ), obese Eyes: Bilateral Eye PERRL, Bilateral Eye EOMI HEENT: No scleral icterus (R), No scleral icterus (L), No pale conjunctivae (R), No pale conjunctivae (L) Neck: non-tender, supple Respiratory: lungs clear, normal breath sounds, no respiratory distress, no accessory muscle use, other (tenderness to palpation on L side ) Cardiovascular: regular rate, rhythm, no edema, no murmur Gastrointestinal: normal bowel sounds, non tender, soft (noted some firmness ), no organomegaly, no pulsatile mass; No guarding, No rebound; hernia (umbilical ) Extremities: no pedal edema, no calf tenderness Neurologic/Psychiatric: no motor/sensory deficits, alert, normal mood/affect, oriented x 3 Skin: normal color, warm/dry Data Review Labs Laboratory Tests 02/02/23 17:40: White Blood Count 14.4H, Red Blood Count 5.25, Hemoglobin 15.3, Hematocrit 46, Mean Corpuscular Volume 88, Mean Corpuscular Hemoglobin 29, Mean Corpuscular Hemoglobin Concent 33, Red Cell Distribution Width 13.2, Platelet Count 304, Mean Platelet Volume 10.6, Immature Granulocyte % (Auto) 1, Neutrophils (%) (Auto) 81H, Lymphocytes (%) (Auto) 7L, Monocytes (%) (Auto) 9, Eosinophils (%) (Auto) 2, Basophils (%) (Auto) 1, Neutrophils # (Auto) 11.7H, Lymphocytes # (Auto) 1.1, Monocytes # (Auto) 1.2H, Eosinophils # (Auto) 0.3, Basophils # (Auto) 0.1, Immature Granulocyte # (Auto) 0.1, Neutrophils % (Manual) 85, Lymphocytes % (Manual) 3, Monocytes % (Manual) 7, Eosinophils % (Manual) 2, Reactive Lymphocytes 3, Blood Morphology Comment NORMAL, Sodium Level 136, Potassium Level 4.4, Chloride Level 103, Carbon Dioxide Level 22, Anion Gap 11, Blood Urea Nitrogen 22H, Creatinine 1.55H, Estimat Glomerular Filtration Rate 47, BUN/Creatinine Ratio 14, Glucose Level 128H, Calcium Level 9.2, Corrected Calcium 9.2, Total Bilirubin 1.5H, Aspartate Amino Transf (AST/SGOT) 26, Alanine Aminotransferase (ALT/SGPT) 27, Alkaline Phosphatase 58, Total Protein 7.8, Albumin 4.0 02/02/23 21:30: Glucometer 108 02/03/23 05:50: Glucometer 107 02/03/23 06:25: White Blood Count 13.1H, Red Blood Count 5.11, Hemoglobin 14.8, Hematocrit 45, Mean Corpuscular Volume 88, Mean Corpuscular Hemoglobin 29, Mean Corpuscular Hemoglobin Concent 33, Red Cell Distribution Width 13.0, Platelet Count 264, Mean Platelet Volume 10.7, Immature Granulocyte % (Auto) 1, Neutrophils (%) (Auto) 76H, Lymphocytes (%) (Auto) 7L, Monocytes (%) (Auto) 10, Eosinophils (%) (Auto) 5, Basophils (%) (Auto) 1, Neutrophils # (Auto) 10.0H, Lymphocytes # (Auto) 0.9L, Monocytes # (Auto) 1.3H, Eosinophils # (Auto) 0.6H, Basophils # (Auto) 0.1, Immature Granulocyte # (Auto) 0.1, Sodium Level 134L, Potassium [place] 3.5L, Chloride Level 103, Carbon Dioxide Level 22, Anion Gap 9, Blood Urea Nitrogen 28H, Creatinine 1.43H, Estimat Glomerular Filtration Rate 52, BUN/Creatinine Ratio 20, Glucose Level 115H, Calcium Level 8.9 Assessment/Plan Assessment/Plan Assessment/Plan Pulmonary Contusion * monitor SpO2 * Potential home oxygen study Nondisplaced fx of left 8th and 9th rib * Pain management Obesity AFib T2DM * Metformin GERD * Protonics Cholelithasis * monitor for changes MICAH CULLEN DO 02/03/23 1453: History of Present Illness History of Present Illness Time Seen by Provider: 12:20 History of Present Illness Surgery asked to admit pt, he was basically a non-activated trauma. He fell on left side and in the ER found to have rib fractures and probable pulmonary contusions. HPI per ED: 72-year-old male presents to the ER with complaint of left hip and left rib pain. He reports that he tripped over the bedpost on Thursday causing him to fall. He denies hitting his head. He last took Tylenol around noon today. He denies any abdominal pain. Patient reports he has been able to walk since the fall. He has had a previous hip replacement in his left hip. When I spoke to the ER provider last night and asked about Pulse Ox, she stated it was 94% (which I told her is not really normal) and on recheck it was 89-90%. Therefore, I recommended pt be admitted. When I saw him today he was still in moderate amount of pain and he couldn't take deep breaths because, "it hurts a lot to do that". Oral pain meds are not helping and he is using the IV meds pretty routinely. In addition, pt is on a blood thinner. Allergies and Home Medications Allergies Coded Allergies: morphine (Unverified Allergy, Mild, 11/16/10) Patient Home Medication List Home Medication List Reviewed: Yes Amiodarone HCl (Amiodarone HCl) 400 Mg Tablet, 400 MG PO DAILY, (Reported) Entered as Reported by: DINA BROWN on 11/12/221155 Last Action: Reviewed Amlodipine Besylate (Amlodipine Besylate) 10 Mg Tablet, 10 MG PO DAILY, (Reported) Entered as Reported by: DINA BROWN on 11/12/221155 Last Action: Reviewed Apixaban (Eliquis) 5 Mg Tablet, 5 MG PO BID, (Reported) Entered as Reported by: DINA BROWN on 11/12/221155 Last Action: Reviewed Atorvastatin Calcium (Atorvastatin Calcium) 80 Mg Tablet, 80 MG PO HS, (Reported) Entered as Reported by: DENVER BERMEO on 02/03/231230 Last Action: Reviewed Fosinopril Sodium (Fosinopril Sodium) 40 Mg Tablet, 40 MG PO DAILY, (Reported) Entered as Reported by: DIAN BROWN on 11/12/221155 Last Action: Reviewed Glimepiride (Glimepiride) 1 Mg Tablet, 1 MG PO DAILY, (Reported) Entered as Reported by: DINA BROWN on 11/12/221155 Last Action: Reviewed Hydrochlorothiazide (Hydrochlorothiazide) 25 Mg Tablet, 25 MG PO DAILY, (R eported) Entered as Reported by: DINA BROWN on 11/12/221155 Last Action: Reviewed Metformin HCl (Metformin HCl) 1,000 Mg Tablet, 1,000 MG PO DAILY, (Reported) Entered as Reported by: DENVER BERMEO on 02/03/231230 Last Action: Reviewed Prasugrel HCl (Prasugrel HCl) 10 Mg Tablet, 10 MG PO DAILY, (Reported) Entered as Reported by: DENVER BERMEO on 02/03/23 1231 Last Action: Reviewed Tolterodine Tartrate (Tolterodine Tartrate ER) 4 Mg Cap.er.24h, 4 MG PO DAILY, (Reported) Entered as Reported by: DINA BROWN on 11/12/22 115 Last Action: Reviewed Venlafaxine HCl (Venlafaxine HCl) 75 Mg Tab, 75 MG PO BID, (Reported) Entered as Reported by: DINA BROWN on 11/12/22 1156 Last Action: Reviewed Past Wtyoajv-Eyoqjk-Wofzhp Hx Patient Social History Smoking Status: Never a Smoker Sexual Abuse: No Alcohol Use?: Yes (wine every once in a while ) Surgeries History of Surgeries: Yes Surgeries: Coronary Stent (3 placed, Dr. Garcia, 01/22 ), Eye Surgery (cataracts ), Joint Replacement (Knee, hip, shoulder BL on all ), Orthopedic Respiratory History of Respiratory Disorde: Yes Respiratory Disorders: Sleep Apnea Cardiovascular History of Cardiac Disorders: Yes Cardiac Disorders: Atrial Fibrillation (Dr. galo ), Heart Attack, Hypertension Neurological History of Neurological Disord: No Genitourinary History of Genitourinary Disor: Yes Genitourinary Disorders: Benign Prostatic Hyperpl Gastrointestinal History of Gastrointestinal Di: Yes Gastrointestinal Disorders: Gastroesophageal Reflux, Hiatal Hernia Musculoskeletal History of Musculoskeletal Dis: Yes Musculoskeletal Disorders: Degenerate Disk Disease, Arthritis Endocrine History of Endocrine Disorders: Yes Endocrine Disorders: Diabetes, Non-Insulin dep (metformin ) HEENT History of HEENT Disorders: Yes HEENT Disorders: Cataract Hearing Impairment: Hard of Hearing Cancer History of Cancer: No Psychosocial History of Psychiatric Problem: Yes 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[place] , post-combat ), Depression Integumentary History of Skin or Integumenta: No Family Medical History Significant Family History: Hypertension (father ), Stroke (father ), Other Con ditions/Hx ("didnt hang around much, unsure" ) Review of Systems-General Constitutional: No dizziness; weakness (constant ) EENTM: No blurred vision, No eye pain, No hoarseness Respiratory: No cough, No hemoptysis, No short of breath Cardiovascular: chest pain (rib pain ), Hx of Intervention; No palpitations Gastrointestinal: No abdominal pain, No constipation, No diarrhea Genitourinary: No dysuria, No frequency Musculoskeletal: No joint pain, No muscle pain; other (rib pain on left side ) Skin: No dryness, No hx of skin cancer Psychiatric/Neurological: Depressed; Denies Tingling Physical Exam-General Problems Physical Exam General Appearance: moderate distress, obese Eyes: Bilateral Eye PERRL, Bilateral Eye EOMI HEENT: pharynx normal; No scleral icterus (R), No scleral icterus (L), No pale conjunctivae (R), No pale conjunctivae (L) Neck: non-tender, supple Respiratory: lungs clear, normal breath sounds, no respiratory distress, no accessory muscle use, other (tenderness to palpation on L side ) Cardiovascular: regular rate, rhythm, no murmur Gastrointestinal: normal bowel sounds, non tender, soft (noted some firmness ), no organomegaly, no pulsatile mass, hernia (umbilical ) Back: no vertebral tenderness, CVA tenderness (L) Extremities: no pedal edema, no calf tenderness Neurologic/Psychiatric: no motor/sensory deficits, alert, normal mood/affect, oriented x 3 Data Review Radiology Date of Exam:02/02/23 CT CHEST WO EXAMINATION: CT chest without contrast. TECHNIQUE: Multiple contiguous axial images were obtained through the chest without the use of intravenous contrast. All CT scans use one or more of the following dose optimizing techniques: automated exposure control, MA and/or KvP adjustment based on patient size and exam type or iterative reconstruction. HISTORY: Fall. Chest pain. COMPARISON: 06/26/2021. FINDINGS: The heart size is enlarged. No pericardial effusion is present. There is no mediastinal, hilar, or axillary lymphadenopathy. The lungs demonstrate no pulmonary nodules or masses. Scattered bibasilar opacities are seen. There are no focal areas of consolidation. No central endobronchial obstructing lesions are identified. There is no pleural effusion or pneumothorax. Nondisplaced fractures are seen involving the lateral aspect of the left eighth and ninth ribs. No fracture in the thoracic spine. Bilateral shoulder arthroplasties are seen. Large hiatal hernia is seen with intrathoracic stomach. Gallstones are seen within the gallbladder lumen. IMPRESSION: 1. Nondisplaced fractures involving the lateral aspect of the left eighth and ninth ribs. No pneumothorax or pleural effusion. 2. Large hiatal hernia with intrathoracic stomach. 3. Scattered bibasilar opacities. No focal consolidation. 4. Cardiomegaly. No overt pulmonary edema. 5. Cholelithiasis without CT evidence of acute cholecystitis. Dictated by: Dictated on workstation # [id number] Dict: 02/02/23 1652 Trans: 02/02/23 1700 [id number] Interpreted by: LIANNA LEE DO Electronically signed by: LIANNA LEE DO 02/02/23 1700 Assessment/Plan Assessment/Plan Assessment/Plan Hypoxia Pulmonary Contusion * monitor SpO2 * Pt is getting home oxygen study Nondisplaced fx of left 8th and 9th rib * Pain management Obesity AFib T2DM * Metformin GERD * Protonics Cholelithasis * monitor for changes I spoke to nurse and he is requiring O2 at rest and is refusing to walk for the study because of the pain. Will keep him for pain control. Supervisory-Addendum Brief Verification & Attestation Participated in pt care: history, MDM, physical Personally performed: exam, history, MDM, supervision of care Care discussed with: Medical Student Procedures: n/a Verification and Attestation of Medical Student E/M Service A medical student performed and documented this service. I then reviewed and verified all information documented by the medical student and made modifications to such information, when appropriate. I personally performed a physical exam, medical decision making and then discussed any differences between the notes and made revisions as necessary to create one note. Micah Cullen , 02/03/23 , 14:58 SHEA LOPEZ Feb 03, 2023 07:42 MICAH CULLEN DO Feb 03, 2023 14:53
--- NOTE | 2023-02-03 07:52 | Diagnostic Imaging Report ---
EXAMINATION: Chest 1 view HISTORY: Hypoxia COMPARISON: 11/30/2022 FINDINGS: Heart size is stable. There is prominence of the pulmonary vasculature. There is a small right pleural effusion present. There are patchy airspace opacities within the mid and lower lungs bilaterally. A left hiatal hernia is present. There is no pneumothorax. Degenerative changes of the thoracic spine. Osseous structures are otherwise intact. IMPRESSION: 1. Small right pleural effusion with stable mid and lower lung opacities compared to 11/30/2022. 2. Stable hiatal hernia. 3. Prominence of the pulmonary vessels which can be seen with pulmonary vascular congestion. Dictated by: Dictated on workstation # [id number]
[2023-02-03] MEDS: HYDROcodone/ACETAMINOPHEN 10/325 TABLET PO PRN ×2 (12:21→18:41)
[2023-02-03] MEDS ORDERED: PRAS10TA10 PO (12:31)
[2023-02-03] MEDS ORDERED: METF-399 PO (12:31)
[2023-02-03] MEDS ORDERED: ATOR80TA76 PO (12:31)
[2023-02-03] MEDS ORDERED: RT-Ipratropium/Albuterol NEB 3 ML VIAL INH PRN (17:00)
--- NOTE | 2023-02-03 17:39 | Consultation - Hospitalist ---
HPI History of Present Illness: HPI/Chief Complaint Justin Barcenas is a 72 year old male with PMH HTN, T2DM, CAD, AFib, CKD, obesity, who presented after a fall. He tripped over the edge of his bed and hit the floor. He thought he hurt his hip. He is feeling better now. He denies shortness of breath and cough. He denies pleuritic chest pain. He denies fevers and chills. He is requiring some oxygen. He says he feels well enough to go home. Source: patient Exam Limitations: no limitations Date Seen 02/03/23 Attending Physician Karan Pereira MD PCP Admitting Physician: Heber Maurer DO Attending Physician: Heber Maurer DO Referring Physician Date of Admission Feb 02, 2023 at 18:25 Home Medications & Allergies Home Medications Reviewed patient Home Medication Reconciliation performed by pharmacy medication reconciliations monogram technician and/or nursing. Patients Allergies have been reviewed. Allergies Allergies Coded Allergies morphine (Unverified Allergy, Mild, 11/16/10) Past Mdsucfl-Uyvuuj-Zthhox Hx Patient Social History Tobacco Use?: No Smoking Status: Never a Smoker Use of E-Cig and/or Vaping dev: No Substance use?: No Alcohol Use?: Yes (wine every once in a while ) Pt feels they are or have been: No Immunizations Up To Date Date of Influenza Vaccine: Nov 30, 2017 First/Initial COVID19 Vaccinat: 2020 Second COVID19 Vaccination Reji: 2020 Tetanus Booster (TDap): Unknown Hepatitis A: No Hepatitis B: No PED Vaccines UTD: No Date of Pneumonia Vaccine: Nov 30, 2017 Current Status Advance Directives: No Communicates: Verbally Primary Language: Moroccan Preferred Spoken Language: Moroccan Is interpretation needed?: No Sensory deficits: Vision impairment Implanted or Applied Medical D: Orthopedic hardware Past Medical History Surgeries: Coronary Stent (3 placed, Dr. Garcia, 01/22 ), Eye Surgery (cataracts ), Joint Replacement (Knee, hip, shoulder BL on all ), Orthopedic Sleep Apnea Currently Using CPAP: Yes Currently Using BIPAP: No Atrial Fibrillation (Dr. 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 SMITH. Review of Systems Constitutional: no symptoms reported Respiratory: no symptoms reported Cardiovascular: chest pain Gastrointestinal: no symptoms reported Physical Exam Physical Exam Vital Signs Vital Signs - First Documented 02/02/23 02/02/23 02/02/23 15:48 19:12 19:18 Temp 37.3 Pulse 81 Resp 16 B/P (MAP) 124/79 (94) Pulse Ox 92 O2 Delivery Room Air O2 Flow Rate 2.00 FiO2 21 Capillary Refill : Height, Weight, BMI Height: 6'1.00" Weight: 255lbs. 0.0oz. 115.499020ar; 31.27 BMI Method:Stated General Appearance: No Apparent Distress, WD/WN Eyes: Bilateral Eye PERRL, Bilateral Eye EOMI HEENT: PERRL/EOMI, Pharynx Normal Neck: Normal Inspection, Supple Respiratory: Lungs Clear, Normal Breath Sounds, No Respiratory Distress, Other (chest tenderness left lateral) Cardiovascular: Regular Rate, Rhythm, No Murmur Gastrointestinal: Normal Bowel Sounds, Non Tender, Soft Extremity: Normal Inspection, Non Tender, No Pedal Edema Neurologic/Psychiatric: Alert, No Motor/Sensory Deficits, Normal Mood/Affect Skin: Normal Color, Warm/Dry Results Results/Procedures Labs Laboratory Tests 02/02/23 17:40 02/03/23 06:25 Patient resulted labs reviewed. Assessment/Plan Assessment and Plan Assess & Plan/Chief Complaint Fall Rib fractures Pulmonary contusion Acute respiratory failure with hypoxia Surgery primary Pain regimen Supplemental oxygen as needed Incentive spirometry HTN T2DM AFib CAD Obesity CKD Continue home meds as able Resume Eliquis when ok with surgery Sliding scale insulin Diagnosis/Problems Diagnosis/Problems (1) Fall Status: Acute Qualifiers: Encounter type: initial encounter Qualified Codes: W19.XXXA - Unspecified fall, initial encounter (2) Ribs, multiple fractures Status: Acute Qualifiers: Encounter type: initial encounter Fracture type: closed Laterality: left Qualified Codes: S22.42XA - Multiple fractures of ribs, left side, initial encounter for closed fracture (3) Pulmonary contusion Status: Acute Qualifiers: Encounter type: initial encounter Laterality: left Qualified Codes: S27.321A - Contusion of lung, unilateral, initial encounter (4) Acute respiratory failure with hypoxia Status: Acute BESSIE FLOREZ MD Feb 03, 2023 17:39
[2023-02-03] MEDS ORDERED: RT-Ipratropium/Albuterol NEB 3 ML VIAL INH SCH (21:00)
[2023-02-04] MEDS: HYDROcodone/ACETAMINOPHEN 10/325 TABLET PO PRN ×3 (00:20→19:47)
[2023-02-04 03:41] VITALS: BP 150/81
[2023-02-04] MEDS: CATHETER FLUSH 10 ML SYR IVP SCH ×3 (06:01→21:14)
[2023-02-04] MEDS: inSUlin ASPART 1 UNIT/0.01 ML (PER UNIT) SC SCH ×4 (06:01→21:15)
[2023-02-04] MEDS: amLODIPine 10 MG TABLET PO SCH (08:05)
[2023-02-04] MEDS: PRASUGREL 10 MG TABLET PO SCH (08:05)
[2023-02-04] MEDS: AMIODARONE 200 MG TABLET PO SCH (08:06)
[2023-02-04] MEDS: RT-Ipratropium/Albuterol NEB 3 ML VIAL INH SCH ×4 (08:06→20:42)
--- NOTE | 2023-02-04 08:08 | Progress Note - Surgery ---
MARISABEL PULLIAM 02/04/23 0808: Subjective Date Seen by a Provider: Feb 04, 2023 Time Seen by a Provider: 07:44 Subjective/Events-last exam Justin Vela is a 72 yo male admitted after a fall in his home on 01/31 which subsequently resulted in fractures of left ribs 8 and 9. This morning he is s itting up in a chair eating breakfast. He has been able to walk about his room independently. No difficulty with voids or bowel movements. He is using his incentive spirometer. He has been experiencing pain on his left flank which is exacerbated by movement. He is on 4L of oxygen via nasal cannula with saturation of 94% on interview. He does not wear oxygen at home. Review of Systems General: No Chills, No Fatigue HEENT: No Visual Changes, No Sinus Congestion Pulmonary: Dyspnea; No Cough Cardiovascular: No: Chest Pain, Palpitations Gastrointestinal: No: Nausea, Vomiting, Abdominal Pain Genitourinary: No Dysuria, No Retention Neurological: No: Weakness, Numbness Objective Exam Vital Signs Date Time Temp Pulse Resp B/P (MAP) Pulse Ox O2 Delivery O2 Flow Rate FiO2 02/04/23 03:41 36.6 77 18 150/81 (104) 92 Nasal Cannula 4.00 4.00 02/04/23 00:33 65 02/03/23 23:51 36.8 67 18 129/77 (94) 93 NIV CPAP 5.00 5.00 02/03/23 21:35 91 NIV CPAP 5.00 02/03/23 20:00 92 Nasal Cannula 4.00 02/03/23 19:55 36.8 72 18 131/76 (94) 90 Nasal Cannula 3.00 02/03/23 19:24 73 02/03/23 15:23 91 Nasal Cannula 3.00 02/03/23 15:14 36.2 70 19 170/88 (115) 89 Nasal Cannula 2.00 02/03/23 15:13 36.2 63 90 28 02/03/23 14:45 90 Nasal Cannula 2.00 02/03/23 13:31 91 Nasal Cannula 2.00 02/03/23 13:30 86 Room Air 0.00 02/03/23 13:02 Room Air 0.00 02/03/23 13:01 90 Nasal Cannula 2.00 02/03/23 13:00 63 02/03/23 11:20 36.2 64 16 127/72 (90) 98 Nasal Cannula 02/03/23 10:17 Nasal Cannula 2.00 02/03/23 10:11 94 Nasal Cannula 4.00 I & O 02/04/23 06:59 Intake Total 1290 ml Balance 1290 ml Capillary Refill : General Appearance: No Apparent Distress, WD/WN HEENT: PERRL/EOMI, Pharynx Normal, Other (4L O2 via nasal cannula in place) Neck: Normal Inspection, Supple Respiratory: Lungs Clear, Normal Breath Sounds, No Respiratory Distress Cardiovascular: Regular Rate, Rhythm, No Murmur Peripheral Pulses: 2+ Dorsalis Pedis (R), 2+ Left Dors-Pedis (L), 2+ Radial Pulses (R), 2+ Radial Pulses (L) Gastrointestinal: normal bowel sounds, non tender, soft (noted some firmness ), no organomegaly, no pulsatile mass, hernia (umbilical ) Extremity: Normal Inspection, Non Tender, No Pedal Edema Neurologic/Psychiatric: Alert, No Motor/Sensory Deficits, Normal Mood/Affect Skin: Normal Color, Warm/Dry Results Lab Laboratory Tests 02/03/23 11:10: Glucometer 121H 02/03/23 15:21: Glucometer 129H 02/03/23 19:59: Glucometer 143H 02/04/23 05:51: Glucometer 113H Assessment/Plan Assessment/Plan Assessment/Plan Hypoxia Pulmonary Contusion * Monitor SpO2 - on 4L O2 via nasal cannula * Control pain and re-attempt walking O2 qualification trial to test saturations * Patient would benefit from physical therapy Nondisplaced fx of left 8th and 9th rib * Pain management PRN Obesity AFib T2DM * Metformin GERD * Protonics Cholelithasis * monitor for changes HEBER MAURER DO 02/04/23 1331: Subjective Time Seen by a Provider: 11:15 Subjective/Events-last exam Pt seen and examined, he is lying in bed (nurse states not really moving) and is complaining of rib pain. He still needs O2. Review of Systems Pulmonary: Dyspnea; No Cough Cardiovascular: Chest Pain (secondary to ribs); No: Palpitations Gastrointestinal: Nausea, Vomiting, Abdominal Pain Objective Exam General Appearance: Mild Distress, Obese HEENT: PERRL/EOMI, Other (4L O2 via nasal cannula in place) Respiratory: Lungs Clear, Normal Breath Sounds, No Respiratory Distress Cardiovascular: Regular Rate, Rhythm, No Murmur Gastrointestinal: non tender, soft (noted some firmness ), no organomegaly, hernia (umbilical ) Extremity: Non Tender, No Pedal Edema Neurologic/Psychiatric: Alert, Oriented x3 Assessment/Plan Assessment/Plan Assessment/Plan Hypoxia - needs to walk in order to get correct O2 needs for home Pulmonary Contusion * Monitor SpO2 - on 4L O2 via nasal cannula * Control pain and re-attempt walking O2 qualification trial to test saturations * Patient would benefit from physical therapy Nondisplaced fx of left 8th and 9th rib * Pain management PRN Obesity AFib T2DM * Metformin GERD * Protonics Cholelithasis * monitor for changes Supervisory-Addendum Brief Verification & Attestation Participated in pt care: history, MDM, physical Personally performed: exam, history, MDM, supervision of care Care discussed with: Medical Student Procedures: n/a Verification and Attestation of Medical Student E/M Service A medical student performed and documented this service. I then reviewed and verified all information documented by the medical student and made modifications to such information, when appropriate. I personally performed a physical exam, medical decision making and then discussed any differences between the notes and made revisions as necessary to create one note. Heber Maurer , 02/04/23 , 13:31 MARISABEL PULLIAM Feb 04, 2023 08:08 HEBER MAURER DO Feb 04, 2023 13:31
[2023-02-04 08:13] VITALS: BP 150/98
[2023-02-04] MEDS ORDERED: NON-FORMULARY MEDICATION 1 EA EA (Amiodarone HCl 400 MG) PO SCH (09:00)
[2023-02-04 12:00] VITALS: BP 155/83
--- NOTE | 2023-02-04 14:33 | Physical Therapy Progress Note ---
Therapy Progress Note Nurse requests hold on patient this date due to agitation. Will attempt evaluation again tomorrow. ALIVIA MAN PT Feb 04, 2023 14:32
--- NOTE | 2023-02-04 14:39 | Occupational Therapy Eval ---
OT Evaluation-General/PLF Medical Diagnosis Admission Date Feb 02, 2023 at 18:25 Medical Diagnosis: RIB FRACTURE, PULMONARY CONTUSION, HYPOXIA, Onset Date: Feb 02, 2023 Therapy Diagnosis Therapy Diagnosis: weakness, confusion, pain Height/Weight Height (Feet): 6 Height (Inches): 1.00 Weight (Pounds): 255 Weight (Ounces): 0.0 Precautions Precautions/Isolations: Fall Prevention, Standard Precautions Safety Interventions: Bed Exit Alarm Referral Referral Reason: Evaluation/Treatment Medical History Additional Medical History Yasir fell at home, tripping over corner of bed/bedding, fall to floor. Patient reported he did not fall, he "tripped and landed on the floor, there is a difference". Social History Home: Single Level Current Living Status: Spouse ADL-Prior Level of Function SCALE: Activities may be completed with or without assistive devices. 3-Atzgyelcwh-szhfxdp completes the activity by him/herself with no assistance from a helper. 5-Set-up or Clean-up Assistance-helper sets up or cleans up; patient completes activity. [place] assists only prior to or following the activity. 4-Supervision or Touching Assistance-helper provides verbal cues and/or touching/steadying and/or contact guard assistance as patient completes activity. Assistance may be provided throughout the activity or intermittently. 3-Partial/Moderate Assistance-helper does LESS THAN HALF the effort. [place] lifts, holds or supports trunk or limbs, but provides less than half the effort. 2-Substantial/Maximal Assistance-helper does MORE THAN HALF the effort. [place] lifts or holds trunk or limbs and provides more than half the effort. 9-Uwwynhfez-qzgomo does ALL the effort. Patient does none of the effort to complete the activity. Or, the assistance of 2 or more helpers is required for the patient to complete the activity. If activity was not attempted, code reason: 7-Patient Refused. 9-Not Applicable-not attempted and the patient did not perform the activity before the current illness, exacerbation or injury. 10-Not Attempted due to Environmental Limitations-(lack of equipment, weather restraints, etc.). 88-Not Attempted due to Medical Conditions or Safety Concerns. ADL PLOF Comments Per patient reports he is independent at home. Patient becomes irritated w/ PLOF and environmental questions during interview. Patient frequently attempts to redirect conversation leaving questions unanswered. During mobility evaluation skills, patient is shaking, misuses FWW and verbally antagonizes therapist Self Care: Independent Functional Cognition: Independent DME/Equipment Comments Resistive to follow instructions for safe transfers and use of FWW Patient reports he lives w/ , he also reports he lives w/ his , son and daughter in law and 6 animals. When asked how old his BLACK [employer]OR is, he can only reply he got her in as a puppy 2016. He does nor calculate age.Later he repeats that he got his LAB in [address] Self: Yes (Patient repors he drives) OT Current Status Subjective Up in standard chair w/ alarm, patient refuses to use bathroom or dress w/ therapist. Patient does not use call light. Chair alarm sounds frequently Pain Numeric Pain Scale: 10-Worst Possible Pain Location: Left (rib) Comment: DOES NOT RATE PAIN 0-10, RATES PAIN AT "MAX" Mental Status/Objective Patient Orientation: Person, Place ([facility]), Situation Attachments: Oxygen (2 liters at rest) Current Glasses/Contacts: Yes Hand Dominance: Right Upper Extremity ROM BUE ROM WFLS Upper Extremity Coordination Tremors, shaky Upper Extremity Sensation intact Upper Extremity Strength +4/5 grossly ADL-Treatment Eating (QC): 7 Oral Hygiene (QC): 7 Shower/Bathe Self (QC): 7 (refused ADLs w/ OT) Upper Body Dressing (QC): 7 Lower Body Dressing (QC): 7 On/Off Footwear (QC): 7 (REFUSED TO PERFORM ADLS W/ OT) Toileting Hygiene (QC): 7 Patient reports that the DR needs to come and talk to him before he orders therapy. 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 2=Patient will verbalize/demonstrate understanding of assistive devices/modifications for ADL. 3=Patient will improve strength/tolerance for activity to enable patient to perform ADL's. OT Education/Plan Problem List/Assessment Assessment: Decreased Activ Tolerance, Decreased Safety Aware, Impaired Cognition, Impaired Coordination, Impaired Funct Balance (LOB x2 during evaluation), Impaired Self-Care Skills Discharge Recommendations Plan/Recommendations: Continue POC Treatment Plan/Plan of Care Treatment,Training & Education: Yes Patient would benefit from OT for education, treatment and training to promote independence in ADL's, mobility, safety and/or upper extremity function for ADL's. Plan of Care: ADL Retraining, Functional Mobility, Group Exercise/Act as Ind, UE Funct Exercise/Act, UE Neuromus Re-Ed/Coord Treatment Duration: Feb 13, 2023 Frequency: 3 times per week (3-5 tmes per week) Estimated Hrs Per Day: .25 hour per day Agreement: Yes Rehab Potential: Guarded Patient remains in chair w/ alarm activated at conclusion of session Time Start Time: 14:00 Stop Time: 14:23 DATE: Feb 04, 2023 Total Time Billed (hr/min): 23 Billed Treatment Time YOVANI, FA 23 min IDA ACEVEDO OT Feb 04, 2023 14:39
[2023-02-04] MEDS ORDERED: KETOROLAC INJ 30 MG/ML VIAL IVP PRN (15:30)
[2023-02-04 16:29] VITALS: BP 128/68
[2023-02-04 19:35] VITALS: BP 140/69
[2023-02-04 23:36] VITALS: BP 135/77
[2023-02-05 03:55] VITALS: BP 144/72
[2023-02-05] MEDS: inSUlin ASPART 1 UNIT/0.01 ML (PER UNIT) SC SCH ×2 (05:47→12:12)
[2023-02-05] MEDS: CATHETER FLUSH 10 ML SYR IVP SCH (05:47)
[2023-02-05 07:37] VITALS: BP 170/68
[2023-02-05] MEDS: RT-Ipratropium/Albuterol NEB 3 ML VIAL INH SCH ×2 (07:54→10:58)
--- NOTE | 2023-02-05 08:09 | Progress Note - Surgery ---
MARISABEL PULLIAM Hanh 02/05/23 0809: Subjective Date Seen by a Provider: Feb 05, 2023 Time Seen by a Provider: 07:32 Subjective/Events-last exam Patient is sitting up eating breakfast. He has no difficulty with eating or excretions. Patient has been forgetful at times. He is able to ambulate with a ssistance of a walker and standby. He is still experiencing flaring episodes of pain in his left flank. Reports pain medication has helped. He states working with PT/OT has been going alright contrary to therapy notes which indicate that he had been uncooperative during sessions. He has been wearing his CPAP at night. Review of Systems General: No Chills, No Night Sweats HEENT: No Head Aches, No Visual Changes, No Sinus Congestion, No Sore Throat Pulmonary: No Dyspnea, No Cough Cardiovascular: No: Chest Pain, Lt Headedness Gastrointestinal: No: Nausea, Vomiting, Abdominal Pain Genitourinary: No Dysuria, No Retention Musculoskeletal: other (pain to left flank over ribs) Objective Exam Vital Signs Date Time Temp Pulse Resp B/P (MAP) Pulse Ox O2 Delivery O2 Flow Rate FiO2 02/05/23 07:37 36.6 70 18 170/68 (102) 95 Nasal Cannula 5.00 02/05/23 07:00 65 02/05/23 03:55 36.4 71 20 144/72 (96) 93 Nasal Cannula 4.00 4.00 02/05/23 00:19 69 02/04/23 23:36 36.5 70 20 135/77 (96) 92 Nasal Cannula 4.00 4.00 02/04/23 20:43 90 4.00 02/04/23 20:00 93 Nasal Cannula 3.00 02/04/23 19:35 36.8 72 20 140/69 (92) 91 Nasal Cannula 3.50 02/04/23 19:21 71 02/04/23 16:29 36.6 69 16 128/68 (88) 91 Nasal Cannula 4.00 02/04/23 14:31 92 4.00 02/04/23 13:00 73 02/04/23 12:00 36.3 77 18 155/83 (107) 94 NIV Bilevel 2.00 02/04/23 10:46 94 4.00 02/04/23 10:44 NIV Bilevel 02/04/23 08:13 37.9 69 16 150/98 (115) 93 Nasal Cannula 3.00 I & O 02/05/23 06:59 Intake Total 1900 ml Balance 1900 ml Capillary Refill : General Appearance: No Apparent Distress, Obese HEENT: PERRL/EOMI, Other (4L O2 via nasal cannula in place) Neck: Normal Inspection, Supple Respiratory: Lungs Clear, Normal Breath Sounds, No Respiratory Distress Cardiovascular: Regular Rate, Rhythm, No Murmur Peripheral Pulses: 2+ Dorsalis Pedis (R), 2+ Left Dors-Pedis (L), 2+ Radial Pulses (R), 2+ Radial Pulses (L) Gastrointestinal: non tender, soft (noted some firmness ), no organomegaly, hernia (umbilical ) Extremity: Non Tender, No Pedal Edema Neurologic/Psychiatric: Alert, Oriented x3 Skin: Normal Color, Warm/Dry Results Lab Laboratory Tests 02/04/23 10:58: Glucometer 134H 02/04/23 16:35: Glucometer 133H 02/04/23 20:01: Glucometer 139H 02/05/23 05:39: Glucometer 96 Assessment/Plan Assessment/Plan Assessment/Plan Hypoxia - needs to walk in order to get correct O2 needs for home Pulmonary Contusion * Monitor SpO2 - on 4L O2 via nasal cannula * Patient requiring 2L O2 at rest and 4L on exertion * Control pain and re-attempt walking O2 qualification trial to test saturations * Patient would benefit from continued occupational and physical therapy * Consider patient discharge home on oxygen with home health Nondisplaced fx of left 8th and 9th rib * Pain management PRN Obesity AFib T2DM * Metformin GERD * Protonics Cholelithasis * monitor for changes HEBER MAURER DO 02/05/23 1228: Subjective Time Seen by a Provider: 11:25 Subjective/Events-last exam Pt seen and examined, sitting up in chair. He states he is ready to go home and is oriented today. Review of Systems General: No Chills, No Night Sweats Pulmonary: Dyspnea; No Cough; Other (rib pain on the left) Cardiovascular: No: Chest Pain Gastrointestinal: No: Nausea, Vomiting, Abdominal Pain Musculoskeletal: other (pain to left flank over ribs) Objective Exam General Appearance: No Apparent Distress, Obese HEENT: PERRL/EOMI, Other (4L O2 via nasal cannula in place) Respiratory: Lungs Clear, Normal Breath Sounds, No Respiratory Distress Cardiovascular: Regular Rate, Rhythm, No Murmur Gastrointestinal: non tender, soft (noted some firmness ), no organomegaly, hernia (umbilical ) Extremity: No Pedal Edema Assessment/Plan Assessment/Plan Assessment/Plan Hypoxia - walked with RT and they determined he will need 4L while walking and home O2 of 2L Pulmonary Contusion * pt will need to continue breathing treatments and IS at home Nondisplaced fx of left 8th and 9th rib * Pain management PRN, with non-narcotics Obesity AFib T2DM * Metformin GERD * Protonics Cholelithasis * monitor for changes OK to DC home from surgical standpoint. Supervisory-Addendum Brief Verification & Attestation Participated in pt care: history, MDM, physical Personally performed: exam, history, MDM, supervision of care Care discussed with: Medical Student Procedures: n/a Verification and Attestation of Medical Student E/M Service A medical student performed and documented this service. I then reviewed and verified all information documented by the medical student and made modifications to such information, when appropriate. I personally performed a physical exam, medical decision making and then discussed any differences between the notes and made revisions as necessary to create one note. Heber Maurer , 02/05/23 , 12:27 MARISABEL PULLIAM Feb 05, 2023 08:09 HEBER MAURER DO Feb 05, 2023 12:28
[2023-02-05 08:11] LABS: BASOPHILS # (AUTO) 0.1 10^3/uL (0.0-0.1); BASOPHILS % (AUTO) 1 % (0-10); EOSINOPHILS # (AUTO) 0.6 10^3/uL (0.0-0.3); EOSINOPHILS % (AUTO) 5 % (0-10); HEMATOCRIT 45 % (40-54); HEMOGLOBIN 15.4 g/dL (13.3-17.7); LYMPHOCYTES # (AUTO) 1.1 10^3/uL (1.0-4.0); LYMPHOCYTES % (AUTO) 10 % (12-44); MEAN CORPUSCULAR HEMOGLOBIN 29 pg (25-34); MEAN CORPUSCULAR HGB CONC 34 g/dL (32-36); MEAN CORPUSCULAR VOLUME 86 fL (80-99); MEAN PLATELET VOLUME 10.6 fL (9.0-12.2); MONOCYTES # (AUTO) 1.4 10^3/uL (0.0-1.0); MONOCYTES % (AUTO) 13 % (0-12); NEUTROPHILS # (AUTO) 7.5 10^3/uL (1.8-7.8); NEUTROPHILS % (AUTO) 70 % (42-75); PLATELET COUNT 299 10^3/uL (130-400); WHITE BLOOD COUNT 10.7 10^3/uL (4.3-11.0)
[2023-02-05 08:41] LABS: POTASSIUM 3.4 MMOL/L (3.6-5.0)
[2023-02-05 08:46] LABS: CREATININE SERUM 1.06 MG/DL (0.60-1.30)
[2023-02-05] MEDS: amLODIPine 10 MG TABLET PO SCH (08:50)
[2023-02-05] MEDS: PRASUGREL 10 MG TABLET PO SCH (08:51)
[2023-02-05] MEDS: AMIODARONE 200 MG TABLET PO SCH (08:51)
--- NOTE | 2023-02-05 09:22 | Physical Therapy Evaluation ---
PT Evaluation-General Medical Diagnosis Admission Date Feb 02, 2023 at 18:25 Medical Diagnosis: RIB FRACTURE, PULMONARY CONTUSION, HYPOXIA, Onset Date: Feb 02, 2023 Therapy Diagnosis Therapy Diagnosis: generalized weakness/impaired mobility Height/Weight Height (Feet): 6 Height (Inches): 1.00 Weight (Pounds): 255 Weight (Ounces): 0.0 Precautions Precautions/Isolations: Fall Prevention, Standard Precautions Referral Physician: [place] Reason for Referral: Evaluation/Treatment Medical History Pertinent Medical History: DM, HTN Current History ER secondary to tripping over bed post and falling Reviewed History: Yes Social History Home: Single Level Current Living Status: Spouse Prior Prior Level of Function SCALE: Activities may be completed with or without assistive devices. 3-Jnrtzviepb-ajuornz completes the activity by him/herself with no assistance from a helper. 5-Set-up or Clean-up Assistance-helper sets up or cleans up; patient completes activity. [place] assists only prior to or following the activity. 4-Supervision or Touching Assistance-helper provides verbal cues and/or touching/steadying and/or contact guard assistance as patient completes acti vity. Assistance may be provided throughout the activity or intermittently. 3-Partial/Moderate Assistance-helper does LESS THAN HALF the effort. [place] lifts, holds or supports trunk or limbs, but provides less than half the effort. 2-Substantial/Maximal Assistance-helper does MORE THAN HALF the effort. [place] lifts or holds trunk or limbs and provides more than half the effort. 6-Waqbjdtek-hcyzxa does ALL the effort. Patient does none of the effort to complete the activity. Or, the assistance of 2 or more helpers is required for the patient to complete the activity. If activity was not attempted, code reason: 7-Patient Refused. 9-Not Applicable-not attempted and the patient did not perform the activity before the current illness, exacerbation or injury. 10-Not Attempted due to Environmental Limitations-(lack of equipment, weather restraints, etc.). 88-Not Attempted due to Medical Conditions or Safety Concerns. Bed Mobility: 6 Transfers (B,C,W/C): 6 Gait: 6 Stairs: 6 Indoor Mobility (Ambulation): Independent Stairs: Independent Prior Devices Use: None PT Evaluation-Current Subjective Patient reluctantly agrees to PT. He is unaware of safety concerns and is very verbally short with this PT when given education on safety awareness. Objective Patient Orientation: Confused ROM/Strength ROM Lower Extremities bilateral LE WFL Strength Lower Extremities 4/5 grossly bilateral LE Integumentary/Posture Posture WFL Neuromuscular (Tone, Coordination, Reflexes) grossly intact Sensory Vision: Wears Glasses Hearing: Hearing Aid/Aides Hand Dominance: Right Transfers Lying to Sitting/Side of Bed(Q: 4 Sit to Stand (QC): 4 Chair/Fls-fo-Fnrkj Xfer(QC): 4 Gait Mode of Locomotion: Walk Anticipated Mode of Locomotion: Walk Walk 10 feet (QC): 4 Walk 50 ft with 2 Turns(QC): 4 Walk 150 ft (QC): 4 Distance: 300' Gait Assistive Device: FWW Comments/Gait Description slow, steady gait sequence Balance Sitting Static: Normal Sitting Dynamic: Normal Standing Static: Normal Standing Dynamic: Normal Treatment Education attempt with patient on safety concerns with sit to stand and FWW use. Education on breathing exercises with acapella and insentive spirometer. Patient was not very receptive and told this PT that I wasn't nice and he didn't have to do anything I said. Patient in chair with alarm activated. Assessment/Needs Patient will benefit from skilled PT to address functional strength and mobility to improve current LOF to safely return to home at maximum LOF. Rehab Potential: Fair PT Detention Goals Layer Off Goals PT Layer Off Goals Time Frame: Feb 14, 2023 Roll Left & Right (QC): 6 Sit to Lying (QC): 6 Lying-Sitting on Side/Bed(QC): 6 Sit to Stand (QC): 6 Chair/Qdi-uk-Qwlov Xfer(QC): 6 Toilet Transfer (QC): 6 Walk 10 feet (QC): 6 Walk 50ft with 2 Turns (QC): 6 Walk 150 ft (QC): 6 PT Plan Problem List Problem List: Activity Tolerance, Functional Strength, Safety, Gait Treatment/Plan Treatment Plan: Continue Plan of Care Treatment Plan: Education, Functional Activity Bk, Functional Strength, Gait, Safety, Therapeutic Exercise, Transfers Treatment Duration: Feb 14, 2023 Frequency: 6 times per week Estimated Hrs Per Day: .25 hour per day Time Time In: 900 Time Out: 910 DATE: Feb 05, 2023 Total Billed Treatment Time: 10 Total Billed Treatment 1 visit EVMod 10 min DALIA COOL PT Feb 05, 2023 09:21
--- NOTE | 2023-02-05 09:40 | Occupational Ther Daily Note ---
OT Current Status-Daily Note Subjective More agreeable to OT this morning Pain Numeric Pain Scale: 5-Moderate Pain Mental Status/Objective Patient Orientation: Person, Place ADL-Treatment Agrees to sit up an d eat in recliner w/ alarm set Therapy Code Descriptions/Definitions Functional [place] Measure: 0=Not Assessed/NA 4=Minimal Assistance 1=Total Assistance 5=Supervision or Setup 2=Maximal Assistance 6=Modified [place] 3=Moderate Assistance 7=Complete IndependenceSCALE: Activities may be completed with or without assistive devices. 8-Bsiwbspimf-ycnkahj completes the activity by him/herself with no assistance from a helper. 5-Set-up or Clean-up Assistance-helper sets up or cleans up; patient completes activity. [place] assists only prior to or following the activity. 4-Supervision or Touching Assistance-helper provides verbal cues and/or touching/steadying and/or contact guard assistance as patient completes activity. Assistance may be provided throughout the activity or intermittently. 3-Partial/Moderate Assistance-helper does LESS THAN HALF the effort. [place] lifts, holds or supports trunk or limbs, but provides less than half the effort. 2-Substantial/Maximal Assistance-helper does MORE THAN HALF the effort. [place] lifts or holds trunk or limbs and provides more than half the effort. 7-Hlbiesvze-qcfuix does ALL the effort. Patient does none of the effort to complete the activity. Or, the assistance of 2 or more helpers is required for the patient to complete the activity. If activity was not attempted, code reason: 7-Patient Refused. 9-Not Applicable-not attempted and the patient did not perform the activity before the current illness, exacerbation or injury. 10-Not Attempted due to Environmental Limitations-(lack of equipment, weather restraints, etc.). 88-Not Attempted due to Medical Conditions or Safety Concerns. Eating (QC): 6 Oral Hygiene (QC): 5 Performed hand and face washing prior to transfer, set up required. Extra time to transfer d/t pain and patient intention distraction Education OT Patient Education: Correct positioning, Modified ADL techniques, Progress toward Goal/Update tx plan, Purpose of tx/functional activities, Reviewed precautions, Rehab process, Safety issues, Transfer techniques, Use of adapted equipment Teaching Recipient: Patient Response to Teaching: Return Demonstration, Reinforcement Needed OT Group Home Goals Group Home Goals Eating (QC): 6 Oral Hygiene (QC): 6 Toileting Hygiene (QC): 6 Shower/Bathe Self (QC): 6 Upper Body Dressing (QC): 6 Lower Body Dressing (QC): 6 On/Off Footwear (QC): 6 1=Demonstrate adherence to instructed precautions during ADL tasks. 2=Patient will verbalize/demonstrate understanding of assistive devices/modifications for ADL. 3=Patient will improve strength/tolerance for activity to enable patient to perform ADL's. OT Education/Plan Problem List/Assessment Assessment: Decreased Activ Tolerance, Decreased Safety Aware, Impaired Cognition, Impaired Coordination, Impaired Funct Balance, Impaired Self-Care Skills Discharge Recommendations Plan/Recommendations: Continue POC Treatment Plan/Plan of Care Treatment,Training & Education: Yes Patient would benefit from OT for education, treatment and training to promote independence in ADL's, mobility, safety and/or upper extremity function for ADL's. Plan of Care: ADL Retraining, Functional Mobility, Group Exercise/Act as Ind, UE Funct Exercise/Act, UE Neuromus Re-Ed/Coord Treatment Duration: Feb 13, 2023 Frequency: 3 times per week (3-5 tmes per week) Estimated Hrs Per Day: .25 hour per day Agreement: Yes Rehab Potential: Fair Time Start Time: 07:50 Stop Time: 08:10 DATE: Feb 05, 2023 Total Time Billed (hr/min): 20 Billed Treatment Time ADL 20 min IDA ACEVEDO OT Feb 05, 2023 09:40
[2023-02-05 11:13] VITALS: BP 125/80
--- NOTE | 2023-02-05 12:47 | D/C HH Face to Face Order ---
D/C Face to Face Orders Instructions for Patient Via [facility], Patient Instructions/FollowUp: see instructions Physician to follow Patient: Randall Discharge Diet for Home: No Restrictions Patient Data-Allergies,Ht & Wt Patient Allergies: Coded Allergies: morphine (Unverified Allergy, Mild, 11/16/10) Height (Feet): 6 Height (Inches): 1.00 Weight (Pounds): 255 Weight (Ounces): 0.0 Home Health Need/Face to Face Date of Face to Face: Feb 05, 2023 Clinical Findings: Generalized weakness and fatigue, Instability, Muscle weakness, Unsteady gait I have seen Pt [id number]: Yes Discharged To: Home Diagnosis/Conditions: Respiratory failure Pulmonary contusion Fall Rib fractures HTN T2DM BPH Obesity Problems/Diagnosis/Condition: (1) Acute respiratory failure with hypoxia (2) Ribs, multiple fractures (3) Pulmonary contusion (4) Fall (5) HTN (hypertension) (6) T2DM (type 2 diabetes mellitus) (7) BPH (benign prostatic hyperplasia) (8) Obesity (BMI 30.0-34.9) Patient is Homebound due to: Melinda fall risk due to instabilty, Muscle weakness Homebound Status Due to the above stated illness, injury or surgical procedure (medical condition or diagnosis) and associated clinical findings, the patient is homebound because of his/her inability to leave home except with aid of a supportive device and/or person AND leaving the home requires a considerable and taxing effort or is medically contraindicated. Pt req the following assistanc: Aid of another person Home Health Nursing Orders Home Health Services Order: Nursing Services, Family Sociologist-Evaluate & Treat, Physical Therapy-Evaluate & Treat Home Health Infusion Therapy Line Start Date: Feb 02, 2023 Therapy Orders Therapy Orders: OT (must have SN or PT order), Physical Therapy Therapy Specific Orders: Eval assistive deivces, Teach strategies/cognitive d eficits, Teach enviro modifications/safety, Gait training, Increase strength/endurance Certify Stmt I certify that this patient is under my care and that I, a nurse practitioner or a physician; a medical assistant float working with me, had a face to face encounter that - meets the physician face to face encounter requirements with this patient as dated. BESSIE FLOREZ MD Feb 05, 2023 12:47
[2023-02-05 14:30] VITALS: BP 125/80
== END 2023-02-05 14:30 | disposition home health service (06) ==
LOC: EDUNIT# 15:35 → ER 15:38 → 4TH 18:25 → UNDOADMOB 18:25 → 4TH 18:36 → UNDODISOB 02-05 14:30
PROVIDERS: ADMIT Surgery; ATTEND Surgery
DX: S27.329A Contusion of lung, unspecified, initial encounter (principal); S22.42XA Multiple fractures of ribs, left side, initial encounter for closed fracture; R09.02 Hypoxemia; I48.91 Unspecified atrial fibrillation; K21.9 Gastro-esophageal reflux disease without esophagitis; K80.20 Calculus of gallbladder without cholecystitis without obstruction; I25.10 Atherosclerotic heart disease of native coronary artery without angina pectoris; N18.9 Chronic kidney disease, unspecified; E11.22 Type 2 diabetes mellitus with diabetic chronic kidney disease; I12.9 Hypertensive chronic kidney disease with stage 1 through stage 4 chronic kidney disease, or unspecified chronic kidney disease; E66.9 Obesity, unspecified; W01.0XXA Fall on same level from slipping, tripping and stumbling without subsequent striking against object, initial encounter; Z79.82 Long term (current) use of aspirin; Z79.84 Long term (current) use of oral hypoglycemic drugs; Z79.899 Other long term (current) drug therapy; Z68.31 Body mass index [BMI] 31.0-31.9, adult
CPT/HCPCS: 71045; 71250; 73502; 80048 ×2; 80053; 82947 ×4; 85007; 85025 ×2; 85027; 94640 ×9; 94664; 94760 ×2; 94761; 96372; 96375; 96376; 97162; 97166; 97530; 97535; 99284; G0008; G0378; 36415; 90471; 90662